=== PATIENT | female | born 1980 | race Caucasian/White ===

== ENCOUNTER 2020-03-24 17:15 | Outpatient (CLI) | payer OTHER, SELFPAY ==
[2020-03-25 18:47] LABS: SARS-CoV-2 RNA PCR Negative
== END 2020-03-24 17:16 | disposition home or self-care (01) ==
LOC: CHSLAB 17:20
DX: Z20.822 Contact with and (suspected) exposure to COVID-19 (principal)
CPT/HCPCS: C9803; U0003; U0005

== ENCOUNTER 2020-07-08 12:12 | Outpatient (CLI) | payer OTHER, SELFPAY ==
--- NOTE | ~2020-07-08 | XR_ITS ---
EXAMINATION: XR chest 2V 07/08/2020 12:37 INDICATION: Cough and shortness of breath. History of bronchitis. PROCEDURE: 2 view chest COMPARISON: No prior studies for comparison. FINDINGS: The lungs are clear. The cardiomediastinal silhouette is within normal limits. There are no pleural effusions. There is no pneumothorax suspected. IMPRESSION: 1: NO ACUTE CARDIOPULMONARY DISEASE. Reviewed, dictated and finalized at location B.
== END 2020-07-08 12:13 | disposition home or self-care (01) ==
LOC: CHSLAB 12:17
PROVIDERS: PCP Family Medicine
DX: R05 Cough (principal)
CPT/HCPCS: 71046

== ENCOUNTER 2020-07-09 13:47 | Outpatient (CLI) | payer OTHER, SELFPAY | END 2020-07-09 13:48 | disposition home or self-care (01) | LOC: CHSLAB 13:54 | PROVIDERS: PCP Family Medicine | DX: R05 Cough (principal) | CPT/HCPCS: 87070; 87205 ==

== ENCOUNTER 2021-03-06 12:21 | Outpatient (CLI) | payer OTHER, SELFPAY ==
--- NOTE | ~2021-03-06 | XR_ITS ---
EXAMINATION: XR chest 2V DATE: 03/06/2021 12:35 INDICATION: Cough and wheezing TECHNIQUE: PA and lateral views of the chest were obtained. COMPARISON: Chest radiograph dated 07/08/2020 FINDINGS: The lungs remain clear with no focal airspace opacities, pulmonary edema, pleural effusion or pneumot horax. The cardiomediastinal silhouette is normal. Unchanged mild thoracic spondylosis. IMPRESSION: 1. No acute cardiopulmonary disease. Reviewed, dictated and finalized at location H. H MAKER
== END 2021-03-06 12:22 | disposition home or self-care (01) ==
LOC: CHSIMG 12:22
PROVIDERS: PCP Family Medicine; Visit Provider Nurse Practitioner Family
DX: R05.9 Cough, unspecified (principal); R06.2 Wheezing
CPT/HCPCS: 71046

== ENCOUNTER 2021-04-18 12:06 | Outpatient (CLI) | payer OTHER, SELFPAY ==
[2021-04-18 12:24] LABS: Basophils Absolute Auto 0.04 K/mm3 (0.00-0.10); Basophils Percent Auto 0.8 % (0.0-1.0); Eosinophils Absolute Auto 0.09 K/mm3 (0.02-0.50); Eosinophils Percent Auto 1.8 % (1.0-6.0); Hematocrit 44.3 % (35.0-49.0); Hemoglobin 14.3 g/dL (12.0-15.0); Immature Granulocyte Absolute 0.01 K/mm3 (0.00-0.00); Immature Granulocyte Percent A 0.2 % (0.0-0.0); Lymphocytes Absolute Auto 1.12 K/mm3 (1.10-4.50); Lymphocytes Percent Auto 22.9 % (18.0-42.0); Mean Corpuscular HGB Conc 32.3 g/dL (32.0-36.0); Mean Corpuscular Hemoglobin 32.8 pg (27.0-31.0); Mean Corpuscular Volume 101.6 fL (78.0-102.0); Monocytes Absolute Auto 0.45 K/mm3 (0.10-0.90); Monocytes Percent Auto 9.2 % (2.0-11.0); Neutrophils Absolute Auto 3.2 K/mm3 (1.7-7.2); Neutrophils Percent Auto 65.1 % (50.0-70.0); Platelet Count Result 155 K/mm3 (150-420); Red Blood Count 4.36 M/mm3 (4.20-5.40); White Blood Count 4.9 K/mm3 (4.8-10.8)
[2021-04-18 12:26] LABS: Add Urine Microscopic? YES; Appearance Urine Clear (Clear); Bilirubin Urine Negative (Negative); Blood Urine Negative (Negative); Color Urine Brown (Yellow); Glucose Urine UA Negative (Negative); Ketones Urine Negative (Negative); Leukocyte Esterase Ur Negative (Negative); Nitrate Urine Negative (Negative); Protein Urine Negative (Negative); Specific Grav Ur 1.025 (1.010-1.020); Urobilinogen Urine 0.2 mg/dL (0.2-1.0)
[2021-04-18 12:31] LABS: Bacteria Urine 1+ /hpf; Mucus Urine Moderate /lpf; RBC Urine None seen /hpf (0-2); Squamous Epithelial Cell Urine Moderate /hpf (Few); WBC Urine None seen /hpf (0-3)
[2021-04-18 13:00] LABS: SARS-CoV-2 RNA PCR Negative (Negative)
[2021-04-18 13:01] LABS: Alanine Aminotransferase 25 U/L (14-59); Alkaline Phosphatase 82 U/L (46-116); Anion Gap 9 mmol/L (8-16); Aspartate Amino Transferase 14 U/L (15-37); Bilirubin,Total 0.7 mg/dL (0.00-1.00); Blood Urea Nitrogen 7 mg/dL (7-18); CRP < 0.5 mg/dL (0.0-0.9); Calcium 8.6 mg/dL (8.5-10.1); Carbon Dioxide 31 mmol/L (21-32); Chloride 101 mmol/L (98-108); Estimated Glomerular Filt Rate > 60; Glucose 99 mg/dL (70-99); Magnesium 2.1 mg/dL (1.8-2.4); Osmolality Calculated 290 mOsm/kg (285-295); Phosphorus 2.9 mg/dL (2.6-4.7); Sodium 141 mmol/L (136-145); Thyroid Stimulating Hormone 1.92 uIU/mL (0.36-3.74); Total Protein 6.8 g/dL (6.4-8.2)
== END 2021-04-18 12:07 | disposition home or self-care (01) ==
LOC: CHSLAB 12:08
PROVIDERS: PCP Internal Medicine; Visit Provider Internal Medicine
DX: R51.9 Headache, unspecified (principal); M54.9 Dorsalgia, unspecified; R05.9 Cough, unspecified; E87.6 Hypokalemia; Z20.822 Contact with and (suspected) exposure to COVID-19
CPT/HCPCS: 36415; 80053; 81001; 83735; 84100; 84443; 85025; 86140; C9803; U0003; U0005

== ENCOUNTER 2021-10-11 11:22 | Outpatient (CLI) | payer OTHER, SELFPAY ==
[2021-10-11 11:53] LABS: SARS-CoV-2 Ag Positive (Negative)
[2021-10-11 12:09] LABS: Influenza A QL RT-PCR Negative (Negative); Influenza B QL RT-PCR Negative (Negative); SARS-CoV-2 RNA PCR Positive (Negative)
== END 2021-10-11 11:23 | disposition home or self-care (01) ==
LOC: CHSLAB 11:24
PROVIDERS: PCP Internal Medicine; Visit Provider Internal Medicine
DX: U07.1 COVID-19 (principal); R50.9 Fever, unspecified; R51.9 Headache, unspecified; R05.9 Cough, unspecified
CPT/HCPCS: 87426; 87502; C9803; U0003; U0005

== ENCOUNTER 2021-10-20 14:20 | Outpatient (CLI) | payer OTHER, SELFPAY ==
--- NOTE | ~2021-10-20 | XR_ITS ---
XR chest 2V DATE: 10/20/2021 14:58 INDICATION: Cough and wheezing for 2 weeks post Covid TECHNIQUE: PA and lateral views COMPARISON: 03/06/2021 2 view chest FINDINGS: Normal heart size. No hilar or mediastinal enlargement. No pulmonary infiltrate or consolid ation, pleural effusion or pulmonary vascular congestion or pneumothorax. Included skeletal structures are unremarkable. IMPRESSION: No active cardiopulmonary disease Reviewed, dictated and finalized at location B.
== END 2021-10-20 14:21 | disposition home or self-care (01) ==
LOC: CHSIMG 14:22
PROVIDERS: PCP Internal Medicine; Visit Provider Internal Medicine
DX: R05.9 Cough, unspecified (principal); U09.9 Post COVID-19 condition, unspecified; R06.2 Wheezing
CPT/HCPCS: 71046

== ENCOUNTER 2022-04-02 16:04 | Outpatient (CLI) | payer OTHER, SELFPAY ==
--- NOTE | ~2022-04-02 | XR_ITS ---
EXAMINATION: XR chest 2V DATE: 04/02/2022 16:25 INDICATION: Increasing shortness of breath and posterior right-sided chest pain TECHNIQUE: PA and lateral views of the chest were obtained. COMPARISON: Chest radiograph dated 10/20/2021 FINDINGS: The lungs remain clear with no focal airspace opacities, pulmonary edema, pleural effusion or pneumot horax. The cardiomediastinal silhouette is normal. Chronic mild anterior wedging of a couple mid thor acic vertebral bodies. IMPRESSION: 1. No acute cardiopulmonary disease. Reviewed, dictated and finalized at location B. [facility]
--- NOTE | 2022-04-02 16:40 | ECG_ITS ---
Measurements Intervals [place] Rate: 81 P: 62 WA: 142 QRS: 56 QRSD: 89 T: 41 QT: 382 QTc: 445 Interpretive Statements SINUS RHYTHM CONSIDER INFERIOR INFARCT, AGE INDETERMINATE ABNORMAL ECG NO PREVIOUS ECG AVAILABLE FOR COMPARISON Electronically Signed On 04-02-2022 17:08:25 PRE K TEACHER by Lino Salter D.O.
== END 2022-04-02 16:05 | disposition home or self-care (01) ==
LOC: CHSIMG 16:11
PROVIDERS: PCP Internal Medicine; Visit Provider Internal Medicine Cardiovascular Disease
DX: R06.09 Other forms of dyspnea (principal); R94.31 Abnormal electrocardiogram [ECG] [EKG]
CPT/HCPCS: 71046; 93005

== ENCOUNTER 2022-05-03 16:16 | Emergency (ER) | payer OTHER, SELFPAY ==
[2022-05-03 16:42] VITALS: BP 142/79; PULSE 96; RESP 16; TEMP 36.7; O2SAT 97
--- NOTE | 2022-05-03 17:09 | ED.WOUNDLAC ---
HPI - Wound/Laceration General Chief Complaint: Wound/Laceration Stated Complaint: corner of drake on car hit head Time Seen by Provider: 05/03/22 16:18 Source: patient Mode of arrival: ambulatory Limitations: no limitations History of Present Illness HPI narrative: this is a 41-year-old female that has a laceration to her scalp after she inadvertently hit the side of her head on the trunk of a car causing pain and a non gaping laceration to the right side of her anterior scalp. Otherwise no fainting no no blurry vision. Onset (ago): hour(s) Location: scalp Place: outdoors Patient tetanus UTD: No Context: accidental Related Data Home Medications Medication Instructions Recorded Confirmed albuterol sulfate 90 mcg/actuation 2 puff inhalation PRN 02/18/19 04/02/22 aerosol inhaler (ProAir HFA) famotidine 40 mg tablet 40 mg PO BID 04/02/22 04/02/22 fluticasone propionate 230 2 puff inhalation BID 04/02/22 04/02/22 mcg-salmeterol 21 mcg/actuation HFA inhaler (Advair HFA) ipratropium 0.5 mg-albuterol 3 mg 3 ml inhalation QID PRN 04/02/22 (2.5 mg base)/3 mL nebulization soln montelukast 10 mg tablet 10 mg PO DAILY 04/02/22 04/02/22 sumatriptan succinate 50 mg tablet 50 mg PO ONCE 04/02/22 tiotropium bromide 2.5 2 puff inhalation DAILY 04/02/22 04/02/22 mcg/actuation mist for inhalation (Spiriva Respimat) verapamil 180 mg 24 hr 180 mg PO DAILY 04/02/22 04/02/22 capsule,extended release Allergies Allergy/AdvReac Type Severity Reaction Status Date / Time No Known Allergies Allergy Verified 04/06/22 15:15 Review of Systems Review of Systems: All systems reviewed & are unremarkable except as noted in HPI and below PMFSH Past Medical History Medical History Hypertension Social History Social History Years smoked: 31 Smoking status: Current every day smoker Tobacco type: cigarettes Second hand tobacco smoke exposure: No Alcohol intake: current Substance use: former Lack of Transportation: No Lack of Food: Never True Current Housing: I Have Housing Concerned About Future Housing: No Difficulty Paying Gas/Electric Bills: No Difficulty Paying for Meds: No Currently Unemployed: No Education: High School Diploma/GED Difficulty w/ Childcare or Family Care: No Exam Const: General: healthy appearing Nutritional Appearance: well nourished Orientation/consciousness: patient oriented x3 Limitations: no limitations HENMT: Head: normal to inspection Face and sinus: normal facial exam Mouth: Yes Normal oral and palatal mucosa present Eyes: Conjunctivae: conjunctivae normal Pupils: Equal, round and reactive pupils present EOM: EOMs intact bilaterally Neck: Neck: normal visual inspection, no lymphadenopathy and no meningeal signs Chest: Chest palpation & inspection: normal inspection of the chest Resp: Effort & Inspection: normal respiratory effort Cardio: Rate: regular rate Rhythm: regular rhythm GI: GI Palp: Yes Soft to palpation Urinary Catheter: Urinary Catheter: patent and draining Skin: General skin exam: normal color Wounds: wounds noted Other: Non gaping laceration to the scalp Neuro: General: patient oriented x3 Cranial nerves: Yes Nystagmus not present Speech: normal speech Extrem: General: normal to inspection Psych: Mental Status: mental status grossly normal Affect: normal affect Course Course Emergency Course: patient received 3 mervin tolerated procedure well will give patient an injection of Toradol and update her with her tetanus Vital Signs Vital signs: Vital Signs Temperature 36.7 C 05/03/22 16:42 Pulse Rate 96 05/03/22 16:42 Respiratory Rate 16 05/03/22 16:42 Blood Pressure 142/79 H 05/03/22 16:42 Pulse Oximetry 97 05/03/22 16:42 Oxygen Delivery Room Air 05/03/22 16:42 Temperat
[2022-05-03] MEDS: KETOROLAC (*BKC) 60 MG/2 ML VIAL IM (17:24)
[2022-05-03] MEDS: TETANUS,DIPHTHERIA,AC PERTUSSIS ADULT 0.5 ML (ADACEL) IM (17:39)
[2022-05-03 17:40] VITALS: BP 127/75; PULSE 93; RESP 17; TEMP 36.4; O2SAT 100
== END 2022-05-03 17:40 | disposition home or self-care (01) ==
LOC: CHSED 17:20
PROVIDERS: Emergency Provider Emergency Medicine; PCP Internal Medicine
DX: S01.01XA Laceration without foreign body of scalp, initial encounter (principal); W22.09XA Striking against other stationary object, initial encounter; I10 Essential (primary) hypertension; F17.210 Nicotine dependence, cigarettes, uncomplicated; Z79.51 Long term (current) use of inhaled steroids; Z23 Encounter for immunization
CPT/HCPCS: 12001; 90471; 90715; 96372; 99283; J1885

== ENCOUNTER 2022-05-28 13:44 | Outpatient (CLI) | payer OTHER, SELFPAY ==
--- NOTE | 2022-05-28 13:49 | ECHO_ITS ---
Patient Info Name: Paola Elizabeth Age: 41 years : 1980 Gender: Female Ht: 63 in Wt: 220 lbs BSA: 2.16 m2 HR: 85 bpm BP: 138 / 80 mmHg Heart Rhythm: Sinus Rhythm Technical Quality: Fair Exam Date: 05/28/2022 2:23 PM Exam Location: [facility] Patient Status: Outpatient Admit Date: 05/28/2022 Staff Ordering Physician: Lino Salter DO Forest Management Professor: Nancie Charles RDCS Attending Provider: Lino Salter DO Referring Physician: Gaetano WALKER; Exam Type: CA echo doppler color flow Study Info Indications R06.09 - Other forms of dyspnea Complete two-dimensional, color flow and Doppler transthoracic echocardiogram is performed. Summary 1. Complete two-dimensional, color flow and Doppler transthoracic echocardiogram is performed. 2. Left ventricular chamber dimension is mildly enlarged. 3. Left ventricular systolic function is normal, estimated at 55-60%. 4. The left ventricular diastolic function is abnormal. 5. E/e' 15 is elevated. 6. There is trace tricuspid valve regurgitation. 7. No pulmonary hypertension, estimated pulmonary arterial systolic pressure is 31 mmHg. Left Ventricle E/e' 15 is elevated. Left ventricular chamber dimension is mildly enlarged. Left ventricular systolic function is normal, estimated at 55-60%. The left ventricular diastolic function is abnormal. Right Ventricle Right ventricular systolic function is normal and with normal TAPSE 2.2 cm. Right ventricular chamber dimension is normal. Left Atria Left atrial chamber dimension is normal. Right Atria Right atrial chamber dimension is normal. Aortic Valve The aortic valve is trileaflet. There is no aortic valve stenosis. There is no aortic valve regurgitation. Pulmonic Valve There is no pulmonic regurgitation. Mitral Valve There is no mitral valve stenosis. There is no mitral valve regurgitation. Tricuspid Valve There is trace tricuspid valve regurgitation. No pulmonary hypertension, estimated pulmonary arterial systolic pressure is 31 mmHg. Pericardium/Pleural There is no pericardial effusion. Inferior Vena Cava Normal inferior vena cava with >50% collapse upon inspiration consistent with normal right atrial pressure, 5 mmHg. Aorta The aortic root size at the sinus of Valsalva is normal. Left Ventricular Outflow Tract Name Value Normal LVOT 2D LVOT Diameter 2.0 cm LVOT Doppler LVOT Peak Velocity 102 cm/s LVOT Peak Gradient 4 mmHg LVOT Mean Gradient 2 mmHg LVOT VTI 19 cm LVOT VTI/AV VTI Ratio 0.5 LVOT Stroke Volume 62 ml Pulmonic Valve Name Value Normal RVOT Doppler RVOT Peak Gradient 2 mmHg PV Doppler
== END 2022-05-28 13:45 | disposition home or self-care (01) ==
LOC: CHSIMG 13:45
PROVIDERS: PCP Internal Medicine; Visit Provider Internal Medicine Cardiovascular Disease
DX: R06.09 Other forms of dyspnea (principal); R93.1 Abnormal findings on diagnostic imaging of heart and coronary circulation
CPT/HCPCS: 93306

== ENCOUNTER 2022-06-29 12:18 | Outpatient (CLI) | payer OTHER, SELFPAY ==
[2022-06-29 13:09] LABS: SARS-CoV-2 RNA PCR Positive (Negative)
== END 2022-06-29 12:19 | disposition home or self-care (01) ==
LOC: CHSLAB 12:20
PROVIDERS: PCP Internal Medicine; Visit Provider Internal Medicine
DX: U07.1 COVID-19 (principal); R05.9 Cough, unspecified; R09.81 Nasal congestion
CPT/HCPCS: U0003; U0005

== ENCOUNTER 2022-07-27 12:25 | Outpatient (CLI) | payer OTHER, SELFPAY ==
--- NOTE | ~2022-07-27 | MM_ITS ---
EXAMINATION: MM screening shane BI w nadja HISTORY: Screening mammogram TECHNIQUE: Craniocaudal and mediolateral oblique 3-D tomosynthesis images were obtained and synthetic 2-D images were generated. CAD analysis was submitted and interpreted. COMPARISON: None, baseline BREAST PARENCHYMAL COMPOSITION: There are scattered areas of fibroglandular density. FINDINGS: No suspicious mass, calcification, or architectural distortion are identified in either yasir ast to suggest malignancy. IMPRESSION: 1. No mammographic evidence of malignancy. 2. Recommend routine screening mammography in one year. BI-RADS Category 1: Negative Reviewed, dictated and finalized at location A.
== END 2022-07-27 12:26 | disposition home or self-care (01) ==
LOC: CHSIMG 12:26
PROVIDERS: PCP Internal Medicine; Visit Provider Internal Medicine
DX: Z12.31 Encounter for screening mammogram for malignant neoplasm of breast (principal)
CPT/HCPCS: 77063; 77067

== ENCOUNTER 2022-08-21 13:10 | Outpatient (CLI) | payer OTHER, SELFPAY ==
--- NOTE | ~2022-08-21 | US_ITS ---
EXAMINATION: US pelvic complete w TV DATE: 08/21/2022 14:00 INDICATION: Pelvic pain during intercourse Comparison:. No prior studies for comparison. TECHNIQUE: Multiple transabdominal and endovaginal sonographic images of the pelvis performed. FINDINGS: The uterus measures 9.5 x 4 x 3 cm. The endometrial complex measures 5 mm. There is trace f luid in the endometrium. There is a large mass at the fundus measuring 3.9 x 3.3 x 3.7 cm, uterine fi broid. There are nabothian cysts. The ovaries are not visualized. There is no free fluid in the pelvis. There are no abnormal masses seen on either side. IMPRESSION: 1. Uterine fibroid at the fundus measuring 3.9 cm. Reviewed, dictated and finalized at location L.
== END 2022-08-21 13:11 | disposition home or self-care (01) ==
LOC: CHSIMG 13:12
PROVIDERS: PCP Internal Medicine; Visit Provider Nurse Practitioner Family
DX: R10.2 Pelvic and perineal pain (principal); D25.9 Leiomyoma of uterus, unspecified; N83.202 Unspecified ovarian cyst, left side; N83.201 Unspecified ovarian cyst, right side
CPT/HCPCS: 76830; 76856

== ENCOUNTER 2022-10-01 10:07 | Outpatient (CLI) | payer OTHER, SELFPAY ==
[2022-10-01 11:01] LABS: Alanine Aminotransferase 35 U/L (14-59); Albumin Level 3.6 g/dL (3.4-5.0); Alkaline Phosphatase 110 U/L (46-116); Anion Gap 9 mmol/L (8-16); Aspartate Amino Transferase 15 U/L (15-37); Bilirubin,Total 0.5 mg/dL (0.00-1.00); Blood Urea Nitrogen 7 mg/dL (7-18); Calcium 8.6 mg/dL (8.5-10.1); Carbon Dioxide 27 mmol/L (21-32); Chloride 106 mmol/L (98-108); Cholesterol 164 mg/dL (0-200); Estimated Glomerular Filt Rate > 60; Glucose 98 mg/dL (70-99); HDL Direct 35 mg/dL (40-60); LDL Cholesterol Calculated 99 mg/dL (<130); Osmolality Calculated 292 mOsm/kg (285-295); Potassium 4.1 mmol/L (3.5-5.1); Sodium 142 mmol/L (136-145); Total Protein 6.1 g/dL (6.4-8.2); Triglycerides 150 mg/dL (0-150)
== END 2022-10-01 10:08 | disposition home or self-care (01) ==
LOC: CHSLAB 10:09
PROVIDERS: PCP Internal Medicine; Visit Provider Internal Medicine Cardiovascular Disease
DX: I10 Essential (primary) hypertension (principal)
CPT/HCPCS: 36415; 80053; 80061

== ENCOUNTER 2022-10-16 00:56 | Day surgery (SDC) | payer OTHER, SELFPAY ==
[2022-10-05 12:11] VITALS: BMI 38.2
--- NOTE | 2022-10-05 12:20 | PC.NURSE ---
Report to the Outpatient Waiting Room, entrance under the green pavilion located off [facility], at time 6:00 on date 10/16/22. Planned Procedure Time: 7:30. Time changes happen often and if your time is changed the preop area will call you the afternoon before. - You and your visitor will be asked to self-screen and do not enter if you have any COVID symptoms. - A mask is optional within the hospital at this time. Patients may have clear liquids (water, carbonated beverages, clear teas, apple juice) until 3 hours prior to surgery (4:30) with a maximum of 20 ounces. - No food from midnight until time of surgery Take the following medications with a SIP of water the morning of surgery: INHALERS, BUPROPION, VERAPAMIL DO NOT STOP ANY OF YOUR OTHER PRESCRIPTION MEDICATIONS PRIOR TO SURGERY ?EXCEPT THE FOLLOWING Medications to discontinue per physician: N/A Date to take last dose: N/A Please no make-up, nail greenlandic, hairspray, perfume, deodorant, or body powder the day of surgery. No jewelry (including any body piercings) or valuables the day of surgery, leave them at home. Please take a shower or bath the night before, or the morning of, surgery with an antibacterial soap. Wear comfortable, loose fitting clothing. - Jewelry must be removed prior to entering the operating room. Rings and piercings that are not removed may be cut off. - The hospital will not accept responsibility for valuables. - Please leave all valuables, including medications, at home the day of surgery. If you are going home after surgery, a licensed concrete mixing truck driver must drive you home. - NO public transportation without another adult if you receive anesthesia. - We recommend that an adult stay with you for 24 hours following discharge. - We also recommend that you do not drive, make important decision, drink alcoholic beverages, or take any drugs that were not prescribed by your health care provider for at least 24 hours after your discharge time. Follow any additional instructions given to you from your surgeon. If you or anyone in your household have experienced Covid symptoms in the past week, please notify your surgeon or the nurse liaison at the phone number below for possible testing. Telephone instructions given to PT - DILIP MALDONADO and asked if any additional questions and then verbalized understanding. Patient advised to call surgeon office or pre surgery nurse liaison [phone] if any additional questions.
[2022-10-16] VITALS (8 sets, daily range): BP systolic 123–149; BP diastolic 65–83; PULSE 85–98; RESP 11–19; TEMP 36.6–37; O2SAT 94–100
[2022-10-16] MEDS: LACTATED RINGERS 1,000 ML 30 ML IV CONT ×2 (06:45→09:31)
[2022-10-16] MEDS: KETOROLAC 15 MG/ML VIAL (*BKC) IV PUSH (06:46)
[2022-10-16] MEDS: ACETAMINOPHEN 500 MG TABLET 1000 MG PO (06:46)
--- NOTE | 2022-10-16 07:01 | WPDANESEPPF ---
Anes - Initial Pre Proc Eval Procedure: Operation Date: 10/16/22 07:30 Proposed Procedures p Total Laparoscopic Hysterectomy with Bilateral Salpingectomy - Grace Santacruz MD Date/Time: 10/16/22 07:01 Surgeon: Grace Santacruz MD Pre Op Diagnosis: uterine leiomyoma Patient Data Age: 42 Gender: F Height: 1.6 m Weight: 98.3 kg Allergies Allergy/AdvReac Type Severity Reaction Status Date / Time No Known Allergies Allergy Verified 10/16/22 06:20 Home Medications Medication Instructions Recorded Confirmed Type albuterol sulfate 90 mcg/actuation 2 puff inhalation PRN PRN 02/18/19 10/16/22 History aerosol inhaler (ProAir HFA) Bronchospasm famotidine 40 mg tablet 40 mg PO BID 04/02/22 10/16/22 History fluticasone propionate 230 2 puff inhalation BID 04/02/22 10/16/22 History mcg-salmeterol 21 mcg/actuation HFA inhaler (Advair HFA) ipratropium 0.5 mg-albuterol 3 mg 3 ml inhalation QID PRN 04/02/22 10/16/22 History (2.5 mg base)/3 mL nebulization Bronchospasm soln montelukast 10 mg tablet 10 mg PO DAILY 04/02/22 10/16/22 History sumatriptan succinate 50 mg tablet 50 mg PO ONCE 04/02/22 10/16/22 History tiotropium bromide 2.5 2 puff inhalation DAILY 04/02/22 10/16/22 History mcg/actuation mist for inhalation (Spiriva Respimat) verapamil 180 mg 24 hr 180 mg PO DAILY 04/02/22 10/16/22 History capsule,extended release bupropion HCl 150 mg 24 hr tablet, 150 mg PO QAM 09/27/22 10/16/22 History extended release meclizine 25 mg tablet 25 mg PO BID PRN Vertigo 09/27/22 10/16/22 History buspirone 5 mg tablet 5 mg PO BID 10/16/22 10/16/22 History Patient hx anesthesia problems: none Family hx anesthesia problems: none Results Review: All pre-operative results and documents have been reviewed as part of the pre-operative evaluation. [facility] Past Medical History Medical History (Updated 10/16/22 @ 07:03 by Fred Medina DO) Asthma CHF (congestive heart failure) COPD (chronic obstructive pulmonary disease) Fibroid History of heart attack Hypertension Seizure age 10 after cyst removed from side of head Surgical History Surgical History (Updated 10/16/22 @ 07:03 by Fred Medina DO) History of tubal ligation Social History Social History Smoking packs per day: 1 Smoking cigarettes per day: 20.0 Years smoked: 32 Smoking pack-years: 32.00 Smoking status: Current every day smoker Tobacco type: cigarettes Second hand tobacco smoke exposure: No Alcohol intake: current Alcohol use details: 2/YEAR Substance use: never Substance use type: does not use Lack of Transportation: No Lack of Food: Never True Current Housing: I Have Housing Concerned About Future Housing: No Difficulty Paying Gas/Electric Bills: No Difficulty Paying for Meds: No Currently Unemployed: No Education: High School Diploma/GED Difficulty w/ Childcare or Family Care: No Living arrangements: with family Spiritual care concerns: No Anes - Eval Final PreProcedure Day of Procedure 10/16/22 07:01 Patient weight: obese Heart: regular rate and rhythm Lungs: clear to auscultation Airway: Mallampati scale class II Neurological: alert and oriented Last oral intake: >/= 8 hours ASA classification: III Emergent: no Anesthetic plan: proceed Anesthesia type and monitoring: general ETT and standard monitoring Results Review: All pre-operative results and documents have been reviewed as part of the pre-operative evaluation. Informed Consent: The patient's anesthetic plan and its attendant risks and benefits were discussed with the patient/family/POA. Questions were solicited and answers provided to the satisfaction of the patient/family/POA.
--- NOTE | 2022-10-16 07:18 | WPDHPUPDATE1 ---
History and Physical Update Update Date/Time: 10/16/22 07:18 History and Physical has been reviewed, including an updated exam of the patient. There are NO changes in the patient's condition. Risks, benefits, and alternatives have been discussed and questions answered. Patient agrees to proceed with procedure.
[2022-10-16] MEDS: ceFAZolin 2 GM/D5W 50 ML 2 GM/50 ML BAG IVPB (07:30)
[2022-10-16] MEDS: ceFAZolin SODIUM 1 GM VIAL (08:00)
[2022-10-16] MEDS: fentaNYL CITRATE INJ (*CRX) 100 MCG/2 ML VIAL 25 MCG IV PUSH ×2 (09:52→09:55)
--- NOTE | 2022-10-16 09:55 | W.PM.PROC2 ---
Procedure Note - Detailed Date of Procedure 10/16/22 Pre-op Diagnosis uterine leiomyoma Post-op Diagnosis Same Procedure Performed Total laparoscopic hysterectomy. Surgeon Grace Santacruz MD Anesthesia General Indications menorrhagia, fibroid Findings Enlarged fibroid uterus, diffuse pelvic scarring, thickened adnexa, mervin over the fallopian tubes Description of Procedure This patient was taken to the operating room. She was prepped and draped in the dorsal lithotomy position after induction of general anesthesia. The uterine manipulator and Rufus cup were placed. This was done with a speculum and tenaculum. The speculum was placed. The cervix was grasped with a tenaculum. The stay sutures were placed at 3 and 9:00 a.m.. The stay sutures of 0 Vicryl were brought through the appropriately sized Rufus cup. The tip of the [place] manipulator was placed in the intrauterine cavity. The cup was slid into place around the cervix and into the fornices. It was locked into place. The sutures were then wrapped around the handle and tied under tension. A 5 mm skin incision was made in the left upper quadrant the abdomen. A 5 mm trocar was inserted into the intrauterine cavity under direct visualization of the scope. Pneumoperitoneum was achieved. A left lower quadrant 11 mm incision was made with scalpel. An 11 mm trocar was inserted into the anterior abdominal cavity under direct visualization the scope. A 5 mm infraumbilical incision was made with a scalpel and a 5 mm trocar was inserted the intra-abdominal cavity under direct visualization of the scope. Bilateral ureteral lysis was performed. This was done from the pelvic brim down to the uterine artery. This was done with careful dissection using sharp and blunt dissection. The fallopian tubes were removed bilaterally. The mesosalpinx around the fallopian tubes were cauterized transected with LigaSure cautery. This was done in a bilateral fashion from the ovary to the uterine cornua. The fallopian tube was transected at the uterine cornu and amputated. The tube was taken out the left lower quadrant trocar site. In a stepwise fashion along the lateral aspects of the uterus the round ligament and broad ligaments were cauterized transected down to the level of the uterine arteries. A bladder flap was created in the bladder was moved distally to the end of the cervix and over the Rufus cup. The bilateral uterine arteries were cauterized and transected. Colpotomy was then performed. In a circumferential fashion the vagina was transected using unipolar cautery. The incision was made down on the Rufus cup. The uterus and cervix were taken out through the vagina. A pneumo occluder was placed in the vagina. The vaginal cuff was closed with a 0 V lock suture in a running fashion. The pelvis was irrigated with copious amounts antibiotic irrigation. The ureters were again examined and found to be intact and flowing freely under the uterine arteries into the bladder. The bladder was intact. It was examined directly. The vagina was irrigated with Betadine solution after removal of the Pneumo occluder. The patient was taken to recovery room. She was stable condition. Sponge lap and needle counts were correct x2. Estimated Blood Loss -100.0 Urine Output -350.0 Drains Yes Packing No Pathology Yes Complications No immediate complications Condition Stable Disposition Floor
--- NOTE | 2022-10-16 09:56 | SUR.PHASEI ---
0955: Simple mask removed.
--- NOTE | 2022-10-16 10:35 | ADMGEN ---
This patient, Paola Green, was admitted to OB 2nd Floor Room 283-00. Patient/family oriented to hospital policies and general routines including ID bracelet, bed and alarms, visiting hours, pain management, procedures, bathroom and other care routines, personal items, smoking policy, room service/diet, and visiting hours. Information on how to activate the Rapid Response Team has been discussed. Patient/Family are encouraged to report perceived risks to care and to ask questions if they do not understand what they are told or what they should do.
[2022-10-16] MEDS: DEXTROSE 5%/0.45% SOD CHL 1,000 ML 125 ML IV CONT (10:49)
[2022-10-16] MEDS: KETOROLAC 30 MG/ML VIAL (*BKC) IV PUSH (10:49)
== END 2022-10-16 17:55 | disposition home or self-care (01) ==
LOC: ANHSURGERY 06:02 → ANHOB2 13:45
PROVIDERS: PCP Internal Medicine; Visit Provider Obstetrics & Gynecology
PROC: 0UT9FZZ Resection of Uterus, Via Natural or Artificial Opening With Percutaneous Endoscopic Assistance (ICD-10-PCS; CPT 58571; principal; 2022-10-16 07:30)
DX: D25.1 Intramural leiomyoma of uterus (principal); J44.9 Chronic obstructive pulmonary disease, unspecified; I11.0 Hypertensive heart disease with heart failure; I50.9 Heart failure, unspecified; Z79.51 Long term (current) use of inhaled steroids; F17.210 Nicotine dependence, cigarettes, uncomplicated; E66.9 Obesity, unspecified; Z68.38 Body mass index [BMI] 38.0-38.9, adult
CPT/HCPCS: 58571; 36415; 86850; 86900; 86901; 88307; 99199; A9270; J0690; J1100; J1170; J1885; J2250; J2405; J2704; J3010; J7120

== ENCOUNTER 2022-11-16 10:10 | Outpatient (CLI) | payer OTHER, SELFPAY ==
[2022-11-16 10:41] LABS: Basophils Absolute Auto 0.04 K/mm3 (0.00-0.10); Basophils Percent Auto 0.6 % (0.0-1.0); Eosinophils Percent Auto 1.5 % (1.0-6.0); Hematocrit 39.8 % (35.0-49.0); Hemoglobin 12.8 g/dL (12.0-15.0); Immature Granulocyte Absolute 0.03 K/mm3 (0.00-0.00); Immature Granulocyte Percent A 0.4 % (0.0-0.0); Lymphocytes Absolute Auto 1.13 K/mm3 (1.10-4.50); Lymphocytes Percent Auto 16.7 % (18.0-42.0); Mean Corpuscular HGB Conc 32.2 g/dL (32.0-36.0); Mean Corpuscular Hemoglobin 32.8 pg (27.0-31.0); Mean Corpuscular Volume 102.1 fL (78.0-102.0); Mean Platelet Volume 8.9 fl (9.2-11.8); Monocytes Percent Auto 8.9 % (2.0-11.0); Neutrophils Absolute Auto 4.9 K/mm3 (1.7-7.2); Neutrophils Percent Auto 71.9 % (50.0-70.0); Platelet Count Result 172 K/mm3 (150-420); Red Cell Distribution Width 14.2 % (11.6-14.4); White Blood Count 6.8 K/mm3 (4.8-10.8)
[2022-11-16 11:03] LABS: Alanine Aminotransferase 24 U/L (14-59); Albumin Level 3.7 g/dL (3.4-5.0); Alkaline Phosphatase 123 U/L (46-116); Amylase 41 U/L (25-115); Anion Gap 9 mmol/L (8-16); Aspartate Amino Transferase 22 U/L (15-37); Bilirubin,Total 0.5 mg/dL (0.00-1.00); Blood Urea Nitrogen 14 mg/dL (7-18); Calcium 9.2 mg/dL (8.5-10.1); Carbon Dioxide 26 mmol/L (21-32); Chloride 106 mmol/L (98-108); Estimated Glomerular Filt Rate > 60; Glucose 98 mg/dL (70-99); Lipase 44 U/L (16-77); Osmolality Calculated 292 mOsm/kg (285-295); Potassium 3.7 mmol/L (3.5-5.1); Sodium 141 mmol/L (136-145); Total Protein 6.4 g/dL (6.4-8.2)
== END 2022-11-16 10:11 | disposition home or self-care (01) ==
LOC: CHSLAB 10:12
PROVIDERS: PCP Internal Medicine; Visit Provider Internal Medicine
DX: R10.9 Unspecified abdominal pain (principal)
CPT/HCPCS: 36415; 80053; 82150; 83690; 85025

== ENCOUNTER 2022-11-19 08:01 | Outpatient (CLI) | payer OTHER, SELFPAY ==
--- NOTE | ~2022-11-19 | US_ITS ---
Limited Abdominal Sonogram: Real-time sonographic imaging of the right upper quadrant was performed. Clinical History: Abdominal pain Findings: The liver appears somewhat heterogeneous, with no evidence of mass lesion or bile duct dil atation. Main portal vein demonstrates normal direction of flow. The gallbladder is well distended, a nd appears normal with no evidence of gallstone or wall thickening. The common bile duct measures 5 m m. The visualized pancreas, aorta, and IVC are unremarkable. Impression: Heterogeneous hepatic echotexture could reflect fatty infiltration or possibly other chronic liver di sease. Correlate clinically. Reviewed, dictated and finalized at location M. Impression: Heterogeneous hepatic echotexture could reflect fatty infiltration or possibly other chronic liver disease. Correlate clinically.
== END 2022-11-19 08:02 | disposition home or self-care (01) ==
LOC: CHSIMG 08:02
PROVIDERS: PCP Internal Medicine; Visit Provider Internal Medicine
DX: R10.9 Unspecified abdominal pain (principal); R93.2 Abnormal findings on diagnostic imaging of liver and biliary tract
CPT/HCPCS: 76705

== ENCOUNTER 2022-11-29 09:12 | Outpatient (CLI) | payer OTHER, SELFPAY ==
--- NOTE | ~2022-11-29 | XR_ITS ---
EXAMINATION: XR barium swallow DATE: 11/29/2022 10:08 INDICATION: Abdominal pain, reflux TECHNIQUE: The patient drank thick barium, gas-producing crystals, and thin barium. Fluoroscopy of th e hypopharynx and esophagus was performed. Fluoroscopy exposure time was 1.4 minutes. The DAP for thi s procedure was 19.343 Gycm2. COMPARISON: None. FINDINGS: There is no mass or stricture of the esophagus. Esophageal motility is normal. There is a s mall sliding hiatal hernia. There was a small amount of spontaneous gastroesophageal reflux. IMPRESSION: 1. Small sliding hiatal hernia. 2. Small amount of spontaneous gastroesophageal reflux. Reviewed, dictated and finalized at location L.
== END 2022-11-29 09:13 | disposition home or self-care (01) ==
LOC: CHSIMG 09:13
PROVIDERS: PCP Internal Medicine; Visit Provider Internal Medicine
DX: R10.9 Unspecified abdominal pain (principal); K44.9 Diaphragmatic hernia without obstruction or gangrene; K21.9 Gastro-esophageal reflux disease without esophagitis
CPT/HCPCS: 74220

== ENCOUNTER 2023-01-15 02:49 | Day surgery (SDC) | payer OTHER, SELFPAY ==
[2023-01-02 13:48] VITALS: BMI 38.2
--- NOTE | 2023-01-11 11:45 | SUR.PREOP ---
Patient called regarding upcoming procedure. Reviewed preop instructions, appointment times, and procedure prep.
[2023-01-15 09:14] VITALS: BP 124/65; PULSE 87; RESP 20; TEMP 36.4; O2SAT 99; BMI 38.0
[2023-01-15] MEDS: LACTATED RINGERS 1,000 ML 150 ML IV CONT (09:16)
--- NOTE | 2023-01-15 10:03 | WPDHPUPDATE1 ---
History and Physical Update Update Date/Time: 01/15/23 10:03 History and Physical has been reviewed, including an updated exam of the patient. There are NO changes in the patient's condition. Risks, benefits, and alternatives have been discussed and questions answered. Patient agrees to proceed with procedure.
--- NOTE | 2023-01-15 10:04 | WPDANESEPPF ---
Anes - Initial Pre Proc Eval Procedure: Operation Date: 01/15/23 10:30 Proposed Procedures p Esophagogastroduodenoscopy & Colonoscopy - Db Holman MD Date/Time: 01/15/23 10:04 Surgeon: Db Holman MD Pre Op Diagnosis: FA HX colon polyps, dysphagia unspecified Patient Data Age: 42 Gender: F Height: 1.6 m Weight: 97.3 kg Last Vital Signs Temp 97.5 F L 01/15/23 09:14 Pulse 87 01/15/23 09:14 Resp 20 01/15/23 09:14 BP 124/65 01/15/23 09:14 Pulse Ox 99 01/15/23 09:14 O2 Del Method Room Air 01/15/23 09:14 Allergies Allergy/AdvReac Type Severity Reaction Status Date / Time No Known Allergies Allergy Verified 01/15/23 09:10 Home Medications Medication Instructions Recorded Confirmed Type albuterol sulfate 90 mcg/actuation 2 puff inhalation PRN PRN 02/18/19 01/02/23 History aerosol inhaler (ProAir HFA) Bronchospasm famotidine 40 mg tablet 40 mg PO BID 04/02/22 01/15/23 History fluticasone propionate 230 2 puff inhalation BID 04/02/22 01/15/23 History mcg-salmeterol 21 mcg/actuation HFA inhaler (Advair HFA) ipratropium 0.5 mg-albuterol 3 mg 3 ml inhalation QID PRN 04/02/22 01/15/23 History (2.5 mg base)/3 mL nebulization Bronchospasm soln montelukast 10 mg tablet 10 mg PO DAILY 04/02/22 01/15/23 History sumatriptan succinate 50 mg tablet 50 mg PO ONCE PRN Migraine Headache 04/02/22 01/15/23 History tiotropium bromide 2.5 2 puff inhalation DAILY 04/02/22 01/15/23 History mcg/actuation mist for inhalation (Spiriva Respimat) bupropion HCl 150 mg 24 hr tablet, 150 mg PO QAM 09/27/22 01/15/23 History extended release meclizine 25 mg tablet 25 mg PO BID PRN Vertigo 09/27/22 01/15/23 History buspirone 5 mg tablet 10 mg PO BID 10/16/22 01/15/23 History topiramate 25 mg tablet 25 mg PO DAILY 12/27/22 01/15/23 History pantoprazole 40 mg tablet,delayed 40 mg PO DAILY 01/02/23 01/15/23 History release verapamil 240 mg tablet,extended 240 mg PO DAILY 01/02/23 01/15/23 History release Patient hx anesthesia problems: none Family hx anesthesia problems: none Results Review: All pre-operative results and documents have been reviewed as part of the pre-operative evaluation. [facility] Past Medical History Medical History (Updated 12/27/22 @ 13:31 by TERESA Cheng) Asthma BMI 37.0-37.9, adult CHF (congestive heart failure) COPD (chronic obstructive pulmonary disease) Fibroid History of heart attack Hypertension Odynophagia Seizure age 10 after cyst removed from side of head Surgical History Surgical History (Updated 12/27/22 @ 12:48 by DASH Ashraf) History of partial hysterectomy History of tubal ligation Family History Family History (Updated 12/27/22 @ 12:49 by DASH Ashraf) Father COPD (chronic obstructive pulmonary disease) Acute myocardial infarction Asthma Mother Lung cancer COPD (chronic obstructive pulmonary disease) Sibling No problems noted. Social History Social History (Updated 12/27/22 @ 12:50 by DASH Ashraf) Smoking packs per day: 0.5 Smoking cigarettes per day: 10.0 Years smoked: 32 Smoking pack-years: 16.00 Smoking status: Current every day smoker Tobacco type: cigarettes Second hand tobacco smoke exposure: No Additional smoking assessment comments: PT TRYING TO QUIT SMOKING, ON NICOTINE PATCHES Alcohol intake: never Alcohol use details: 2/YEAR Substance use: never Substance use type: does not use Lack of Transportation: No Lack of Food: Never True Current Housing: I Have Housing Concerned About Future Housing: No Difficulty Paying Gas/Electric Bills: No Difficulty Paying for Meds: No Currently Unemployed: No Education: High School Diploma/GED Difficulty w/ Childcare or Family Care: No Living arrangements: with family Occupation/Education: occupation Additional occupation/educa
--- NOTE | 2023-01-15 10:25 | SUR.OPER ---
EGD END 1019 COLONOSCOPY START 102
[2023-01-15 10:37] VITALS: BP 106/57; PULSE 85; RESP 14; O2SAT 98
[2023-01-15 10:47] VITALS: BP 108/57; PULSE 89; RESP 13; O2SAT 99
[2023-01-15 10:57] VITALS: BP 119/68; PULSE 86; RESP 21; O2SAT 100
== END 2023-01-15 11:07 | disposition home or self-care (01) ==
PROVIDERS: PCP Internal Medicine; Visit Provider Internal Medicine Gastroenterology
PROC: 0DJ08ZZ Inspection of Upper Intestinal Tract, Via Natural or Artificial Opening Endoscopic (ICD-10-PCS; CPT 43235; principal; 2023-01-15 10:30)
DX: B37.81 Candidal esophagitis (principal); K31.89 Other diseases of stomach and duodenum; K44.9 Diaphragmatic hernia without obstruction or gangrene; I11.0 Hypertensive heart disease with heart failure; I50.9 Heart failure, unspecified; J44.9 Chronic obstructive pulmonary disease, unspecified; G40.909 Epilepsy, unspecified, not intractable, without status epilepticus; I25.2 Old myocardial infarction; F17.210 Nicotine dependence, cigarettes, uncomplicated; E66.9 Obesity, unspecified; Z68.38 Body mass index [BMI] 38.0-38.9, adult; Z79.51 Long term (current) use of inhaled steroids
CPT/HCPCS: 45378; 43239; 88305; 88312; J2704; J7120

== ENCOUNTER 2023-02-05 08:42 | Outpatient (CLI) | payer OTHER, SELFPAY ==
--- NOTE | 2023-02-05 11:00 | NEURO_ITS ---
Impression: # Complains of numbness of hands, left more than right. # Evolving Carpal Tunnel Syndrome, left more than right. # No ulnar neuropathy. # Needle/EMG exam not requested. Nerve Conduction Studies Anti Sensory Summary Table Stim Site NR Peak (ms) P-T Amp (?V) Site1 Site2 Delta-P (ms) Dist (cm) Alcides (m/s) Left Median Anti Sensory (2-3nd Digit) Wrist 4.5 30.4 Wrist 2-3nd Digit 4.5 14.0 31 Wrist 4.5 18.7 Wrist 2-3nd Digit 4.5 14.0 31 Right Median Anti Sensory (2-3nd Digit) Wrist 3.7 44.6 Wrist 2-3nd Digit 3.7 14.0 38 Wrist 3.7 36.1 Wrist 2-3nd Digit 3.7 14.0 38 Left Radial Anti Sensory (Base 1st Digit) Wrist 1.8 39.3 Wrist Base 1st Digit 1.8 0.0 Right Radial Anti Sensory (Base 1st Digit) Wrist 2.5 14.7 Wrist Base 1st Digit 2.5 0.0 Left Ulnar Anti Sensory (5th Digit) Wrist 2.1 71.1 Wrist 5th Digit 2.1 14.0 67 Right Ulnar Anti Sensory (5th Digit) Wrist 2.1 68.8 Wrist 5th Digit 2.1 14.0 67 Motor Summary Table Stim Site NR Onset (ms) O-P Amp (mV) Site1 Site2 Delta-0 (ms) Dist (cm) Alcides (m/s) Left Median Motor (Abd Poll Brev) Wrist 4.1 3.3 Elbow Wrist 5.4 29.0 54 Elbow 9.5 1.4 Right Median Motor (Abd Poll Brev) Wrist 3.3 5.7 Elbow Wrist 5.1 28.0 55 Elbow 8.4 5.0 Left Ulnar Motor (Abd Dig Minimi) Wrist 2.4 6.6 A Elbow Wrist 5.3 30.0 57 A Elbow 7.7 5.2 Right Ulnar Motor (Abd Dig Minimi) Wrist 2.3 5.7 A Elbow Wrist 5.0 28.0 56 A Elbow 7.3 4.2 F Wave Studies NR F-Lat (ms) L-R F-Lat (ms) Left Median (Mrkrs) (Abd Poll Brev) 29.57 1.28 Right Median (Mrkrs) (Abd Poll Brev) 28.29 1.28 Left Ulnar (Mrkrs) (Abd Dig Min) 27.98 0.20 Right Ulnar (Mrkrs) (Abd Dig Min) 28.18 0.20 MTDD
== END 2023-02-05 08:43 | disposition home or self-care (01) ==
LOC: ANHNEURO 08:43
PROVIDERS: PCP Internal Medicine; Visit Provider Nurse Practitioner Family
DX: R20.0 Anesthesia of skin (principal); G56.03 Carpal tunnel syndrome, bilateral upper limbs
CPT/HCPCS: 95911

== ENCOUNTER 2023-02-13 10:00 | Outpatient (RCR) | payer OTHER, SELFPAY ==
--- NOTE | 2023-01-07 15:04 | OPREHPOC ---
Outpatient Therapy Plan of Care This is a Multidisciplinary Plan of Care that may contain components documented by all disciplines (PT, OT, and ST.) PT Problem 1 PT Problem #1 Knowledge Deficit PT Goal 1 Goal 1. Patient will perform independent HEP Target Visit 5 PT Problem 2 PT Problem #2 Pain PT Goal 1 Goal 1. No pain with pelvic exam to allow for medical management including pap smears 2. Pain with intercourse no higher than 3/10 Target Visit 5 PT Problem 3 PT Problem #3 Impaired Strength PT Goal 1 Goal 1. Pelvic floor strength to 4/5 2. No reports of urinary incontinence for 1 week Target Visit 5
--- NOTE | 2023-01-07 15:04 | PTOPEVAL1 ---
Assessment and note entered by Loulou Pena DPT Evaluation Information Assessment Status Evaluation Subjective Information Pt reports she has a history of pelvic pain and with intercourse for 20 years on and off. Recently was diagnosed with a tumor in her uterus and recently had a hysterectomy, October 2022. Unsure if tumor was cancerous. Highest pain recently 10/ 10 and lowest 0/10. Urinates less than 10 times a day and 1-2 times at night. Leaks urine after peeing on the toilet every day. Can hold urge to void unlimited amounts of time. Denies pain with urination. BM every few days, no fecal incontinence or pain. Has had pelvic pain with a pap smear and pelvic exam in the past. Pt has been 5 times, 4 deliveries: 1 vaginal and 3 C -sections. Reports annoyance with the pain. Previous bladder sling surgery. Also has a history of back pain. Returns to MD but unsure date. Patient goal: stop hurting Reported Pain Level Pain Score 0: Self Report Assessment PT Clinical Summary The patient is presenting to skilled therapy with a history of pelvic pain and reports urinary incontinence. She presents with increased pelvic floor muscle tone and decreased strength which are contributing to her pain and incontinence. She will benefit from therapy to address these impairments in order to reduce pain and incotinence for full function. Plan of Care Interventions Electrical Stimulation,Hot Pack/Cold Pack,Manual Therapy,Neuro Re-education,Patient/Caregiver Education,Therapeutic Activities,Therapeutic Exercise PT Services Indicated Yes Treatment Frequency and 1 time a week for 4 weeks Duration These treatments will address the objective and functional deficits as defined above. The patient will be advanced safely and appropriately in order for the patient to progress towards his/her prior level of function. Additional exercises will be introduced and as well as a comprehensive home exercise program upon discharge, if needed, ?to ensure carryover of functional gains achieved in the clinic. This treatment plan has been reviewed and agreement upon by the patient.
--- NOTE | 2023-02-06 09:41 | PCPTNOTE ---
Patient called to cancel appointment for 02/06/23 due to a personal conflict. She rescheduled to next week.
--- NOTE | 2023-02-13 10:19 | OPREHPOC ---
Outpatient Therapy Plan of Care This is a Multidisciplinary Plan of Care that may contain components documented by all disciplines (PT, OT, and ST.) PT Problem 1 PT Problem #1 Knowledge Deficit PT Goal 1 Goal 1. Patient will perform independent HEP Target Visit 5 Progress Met PT Problem 2 PT Problem #2 Pain PT Goal 1 Goal 1. No pain with pelvic exam to allow for medical management including pap smears 2. Pain with intercourse no higher than 3/10 Target Visit 5 Progress Partially Met Comment 1. partially met 2. met PT Problem 3 PT Problem #3 Impaired Strength PT Goal 1 Goal 1. Pelvic floor strength to 4/5 2. No reports of urinary incontinence for 1 week Target Visit 5 Progress Not Met
--- NOTE | 2023-02-13 10:19 | PTOPDC ---
Assessment and note entered by Loulou Pena DPT Evaluation Information Assessment Status Discharge Subjective Information No pain in the last week, highest pain with intercourse 3/10 and it was a few weeks ago. Reports she feels confident with discharge this visit Reported Pain Level Pain Score 0: Self Report Assessment PT Clinical Summary The patient has made excellent progress in therapy and reports no pelvic pain in the last week. She demonstrates improved core and hip strength and decreased pain with pelvic floor palpation, as well as normalized muscle tone. Due to her progress, plan for discharge at this time. She has been educated to continue her HEP and follow up with MD and/or PT as needed. Plan of Care PT Services Indicated No
== END 2023-02-13 11:45 | disposition home or self-care (01) ==
LOC: ANHGOSHPT 10:00
PROVIDERS: PCP Internal Medicine; Visit Provider Advanced Practice Midwife
DX: N39.3 Stress incontinence (female) (male) (principal)
CPT/HCPCS: 97110; 97112; 97140; 97162; 97530

== ENCOUNTER 2023-03-13 19:47 | Outpatient (CLI) | payer OTHER, SELFPAY ==
--- NOTE | 2023-03-25 09:39 | WPDSLEEPSTUD ---
Sleep Study Date of Study: 03/13/23 Ordering Provider: Dejuan Kyle APRN Interpreting Physician: Fariba Shane MD Sleep Study Type: Split Polysomnogram Height: 1.6 m Weight: 99.79 kg Body Mass Index: 38.9 Neck Circumference (inches): 17 [place]: 18 Reason for Sleep Study Hypersomnolence Sleep History Paola Green is a 42-year-old woman with obstructive sleep apnea who has used CPAP in the past. She is a luei-ml-htmn mom.Her psychiatrist has put her on trazodone which helps her fall asleep but not stay asleep. There is a family history of sleep issues, her mother had sleep apnea.She rarely awakens from sleep feeling short of breath. She rarely wakes at night with heartburn, belching or coughing although she does have a hiatal history and reflux. ?She constantly snores, frequently snores loudly enough that others complain. She occasionally has trouble sleeping when she has a cold. She rarely wakes up gasping for breath during the night. She rarely has breathing problems at night. She rarely sweats excessively at night. She never notices her heart pounding or beating irregularly during the night. She rarely falls asleep during the day. She never falls asleep involuntarily, never falls asleep while driving. She never experiences loss of muscle tone with strong emotion. She never feels paralyzed on waking or falling asleep. She never experiences vivid dreams upon waking or falling asleep. She never feels afraid of going to sleep. She rarely has nightmares. She occasionally recalls her dreams. She rarely has thoughts racing through her mind. She occasionally feels sad or depressed. She occasional feels anxiety. She never notices parts of her body jerk. She never kicks during the night. She never feels crawling or aching feelings in her legs. She never feels leg pain at night. She never has morning jaw pain, and never grinds her teeth at night. She occasionally feels bothered by pain during the day, is occasionally awakened by pain during the night. She rarely wakes up feeling stiff in the morning, rarely wakes feeling sore or achy in the morning. She rarely awakens with pain in her neck, spine, or joints. Normal bedtime is between 9:00 a.m. and 2:00 a.m., falling asleep sometimes more quickly than at other times. She wakes up anywhere between 1 time in 5 times during the night and stays awake for at least 20 minutes. She wakes the morning around 8:00 a.m.. Her weekend schedule is the same with variable bedtime but she always wakes around 8:00 a.m.., She reports getting about 5 hours of sleep most nights. She does not generally take naps in the afternoon or evening. If she takes naps this totally interrupts her sleep and she is not able to get to sleep and stay asleep at all. She is usually drowsyFor 3 hours or longer after waking. Habits:??Tobacco: 3/4 pack per day Caffeine: 6 cans per day. Alcohol: none Recreational substances: none COUNTS INCLUDE 234 BEDS AT THE [facility] Past Medical History Medical History (Updated 03/25/23 @ 10:12 by Fariba Shane MD) Asthma BMI 37.0-37.9, adult CHF (congestive heart failure) COPD (chronic obstructive pulmonary disease) Fibroid History of heart attack Hypertension Odynophagia ADAM (obstructive sleep apnea) Seizure age 10 after cyst removed from side of head Surgical History Surgical History History of partial hysterectomy History of tubal ligation Family History Family History Father COPD (chronic obstructive pulmonary disease) Acute myocardial infarction Asthma Mother Lung cancer COPD (chronic obstructive pulmonary disease) Sibling No problems noted. Social History Social History Smoking packs per day: 0.5 Smoking cigarettes per day: 10.0 Years smoked: 32 Smoking pack-years: 16.00
[2023-03-25 10:20] VITALS: BMI 38.9
== END 2023-03-14 06:42 | disposition home or self-care (01) ==
LOC: CHSCSM 19:49
PROVIDERS: PCP Internal Medicine; Visit Provider Nurse Practitioner Family
DX: G47.33 Obstructive sleep apnea (adult) (pediatric) (principal); Z68.39 Body mass index [BMI] 39.0-39.9, adult
CPT/HCPCS: 95811

== ENCOUNTER 2023-03-15 09:22 | Outpatient (CLI) | payer OTHER, SELFPAY ==
[2023-03-15 10:19] LABS: Alanine Aminotransferase 25 U/L (14-59); Albumin Level 3.5 g/dL (3.4-5.0); Alkaline Phosphatase 93 U/L (46-116); Anion Gap 6 mmol/L (8-16); Aspartate Amino Transferase 11 U/L (15-37); Bilirubin,Total 0.4 mg/dL (0.00-1.00); Blood Urea Nitrogen 10 mg/dL (7-18); Calcium 8.7 mg/dL (8.5-10.1); Carbon Dioxide 30 mmol/L (21-32); Chloride 105 mmol/L (98-108); Cholesterol 137 mg/dL (0-200); Estimated Glomerular Filt Rate > 60; Glucose 98 mg/dL (70-99); HDL Direct 35 mg/dL (40-60); LDL Cholesterol Calculated 83 mg/dL (<130); Osmolality Calculated 291 mOsm/kg (285-295); Potassium 3.8 mmol/L (3.5-5.1); Sodium 141 mmol/L (136-145); Thyroid Stimulating Hormone 1.53 uIU/mL (0.36-3.74); Total Protein 5.9 g/dL (6.4-8.2); Triglycerides 96 mg/dL (0-150)
== END 2023-03-15 09:23 | disposition home or self-care (01) ==
LOC: CHSLAB 09:24
PROVIDERS: PCP Internal Medicine; Visit Provider Internal Medicine
DX: A49.02 Methicillin resistant Staphylococcus aureus infection, unspecified site (principal); E78.5 Hyperlipidemia, unspecified
CPT/HCPCS: 36415; 80053; 80061; 84443; 87081

== ENCOUNTER 2023-04-17 10:49 | Outpatient (CLI) | payer OTHER, SELFPAY ==
[2023-04-17 11:36] LABS: SARS-CoV-2 RNA PCR Negative (Negative)
[2023-04-17 11:37] LABS: Influenza A QL RT-PCR Negative (Negative); Influenza B QL RT-PCR Negative (Negative); RSV RNA, RT-PCR Negative (Negative)
== END 2023-04-17 10:50 | disposition home or self-care (01) ==
PROVIDERS: PCP Internal Medicine; Visit Provider Physician Assistant
DX: R05.9 Cough, unspecified (principal)
CPT/HCPCS: 87637

== ENCOUNTER 2023-04-29 10:29 | Outpatient (CLI) | payer OTHER, SELFPAY ==
--- NOTE | ~2023-04-29 | XR_ITS ---
Clinical Indication: Cough PA and lateral views of the chest: Comparison: 04/02/2022 Findings: The lungs are clear, without evidence of focal consolidation or pleural effusion. Cardiome diastinal silhouette is within normal limits. Bones and soft tissues are unremarkable. Impression: Normal chest. Reviewed, dictated and finalized at [facility]. [employer] Impression: Normal chest.
== END 2023-04-29 10:30 | disposition home or self-care (01) ==
LOC: CHSIMG 10:31
PROVIDERS: PCP Internal Medicine; Visit Provider Nurse Practitioner Family
DX: R05.9 Cough, unspecified (principal)
CPT/HCPCS: 71046

== ENCOUNTER 2023-05-16 11:09 | Outpatient (CLI) | payer OTHER, SELFPAY ==
[2023-05-16 11:24] LABS: Hematocrit 39.5 % (35.0-49.0); Hemoglobin 12.4 g/dL (12.0-15.0); Mean Corpuscular HGB Conc 31.4 g/dL (32.0-36.0); Mean Corpuscular Volume 98.8 fL (78.0-102.0); Mean Platelet Volume 8.1 fl (9.2-11.8); Platelet Count Result 142 K/mm3 (150-420); Red Cell Distribution Width 15.7 % (11.6-14.4); White Blood Count 6.1 K/mm3 (4.8-10.8)
== END 2023-05-16 11:10 | disposition home or self-care (01) ==
LOC: CHSLAB 11:11
PROVIDERS: PCP Internal Medicine; Visit Provider Internal Medicine
DX: Z01.818 Encounter for other preprocedural examination (principal); J45.909 Unspecified asthma, uncomplicated
CPT/HCPCS: 36415; 85025

== ENCOUNTER 2023-07-24 11:25 | Outpatient (CLI) | payer OTHER, SELFPAY | END 2023-07-24 11:26 | disposition home or self-care (01) | LOC: CHSIMG 11:26 | PROVIDERS: PCP Internal Medicine; Visit Provider Internal Medicine | DX: M79.671 Pain in right foot (principal); M79.672 Pain in left foot | CPT/HCPCS: 73630 ==

== ENCOUNTER 2023-08-12 12:40 | Outpatient (CLI) | payer OTHER, SELFPAY ==
--- NOTE | ~2023-08-12 | MM_ITS ---
EXAMINATION: MM screening shane BI w nadja HISTORY: Screening TECHNIQUE: Craniocaudal and mediolateral oblique 3-D tomosynthesis images were obtained and synthetic 2-D images were generated. CAD analysis was submitted and interpreted. COMPARISON: 07/27/2022 BREAST PARENCHYMAL COMPOSITION: There are scattered areas of fibroglandular density. FINDINGS: There is no evidence of suspicious mass, calcification, or architectural distortion to sugg est malignancy in either breast. There has been no suspicious interval change. IMPRESSION: 1. No mammographic evidence of malignancy. 2. Recommend routine screening mammography in one year. BI-RADS Category 1: Negative Reviewed, dictated and finalized at location B.
== END 2023-08-12 12:41 | disposition home or self-care (01) ==
PROVIDERS: PCP Internal Medicine; Visit Provider Internal Medicine
DX: Z12.31 Encounter for screening mammogram for malignant neoplasm of breast (principal)
CPT/HCPCS: 77063; 77067

== ENCOUNTER 2023-10-24 07:42 | Outpatient (CLI) | payer OTHER, SELFPAY ==
[2023-10-24 07:53] LABS: Basophils Absolute Auto 0.03 K/mm3 (0.00-0.10); Basophils Percent Auto 0.6 % (0.0-1.0); Eosinophils Absolute Auto 0.09 K/mm3 (0.02-0.50); Eosinophils Percent Auto 1.9 % (1.0-6.0); Hemoglobin 12.9 g/dL (12.0-15.0); Immature Granulocyte Absolute 0.02 K/mm3 (0.00-0.00); Immature Granulocyte Percent A 0.4 % (0.0-0.0); Lymphocytes Absolute Auto 1.34 K/mm3 (1.10-4.50); Lymphocytes Percent Auto 28.6 % (18.0-42.0); Mean Corpuscular HGB Conc 32.3 g/dL (32-36); Mean Corpuscular Hemoglobin 32.4 pg (27.0-31.0); Mean Corpuscular Volume 100.5 fL (78.0-102.0); Mean Platelet Volume 8.5 fl (9.2-11.8); Monocytes Absolute Auto 0.44 K/mm3 (0.10-0.90); Monocytes Percent Auto 9.4 % (2.0-11.0); Neutrophils Absolute Auto 2.76 K/mm3 (1.70-7.20); Neutrophils Percent Auto 59.1 % (50.0-70.0); Platelet Count Result 146 K/mm3 (150-420); Red Blood Count 3.98 M/mm3 (4.20-5.40); Red Cell Distribution Width 14.7 % (11.6-14.4); White Blood Count 4.7 K/mm3 (4.8-10.8)
[2023-10-24 07:59] LABS: Add Urine Microscopic? YES; Appearance Urine Clear (Clear); Bilirubin Urine Negative (Negative); Blood Urine Negative (Negative); Color Urine Yellow (Yellow); Glucose Urine UA Negative (Negative); Ketones Urine Negative (Negative); Leukocyte Esterase Ur Trace (Negative); Nitrate Urine Negative (Negative); Protein Urine Negative (Negative); Specific Grav Ur 1.025 (1.010-1.020); pH Urine 6.5 (5.0-8.0)
[2023-10-24 08:04] LABS: Bacteria Urine 1+ /hpf; RBC Urine None seen /hpf (0-2); Squamous Epithelial Cell Urine Moderate /hpf (Few); WBC Urine None seen /hpf (0-3)
[2023-10-24 09:02] LABS: Alanine Aminotransferase 32 U/L (14-59); Albumin Level 3.5 g/dL (3.4-5.0); Alkaline Phosphatase 103 U/L (46-116); Anion Gap 7 mmol/L (4-12); Aspartate Amino Transferase 21 U/L (15-37); Bilirubin,Total 0.5 mg/dL (0.00-1.00); Blood Urea Nitrogen 7 mg/dL (7-18); Calcium 8.2 mg/dL (8.5-10.1); Carbon Dioxide 28 mmol/L (21-32); Chloride 105 mmol/L (98-108); Cholesterol 165 mg/dL (0-200); Estimated Glomerular Filt Rate > 60; Free T4 Free Thyroxine 0.84 ng/dL (0.76-1.46); Glucose 99 mg/dL (70-99); HDL Direct 27 mg/dL (40-60); LDL Cholesterol Calculated 85 mg/dL (<130); Osmolality Calculated 288 mOsm/kg (285-295); Potassium 3.4 mmol/L (3.5-5.1); Sodium 140 mmol/L (136-145); Thyroid Stimulating Hormone 2.39 uIU/mL (0.36-3.74); Total Protein 6.1 g/dL (6.4-8.2); Triglycerides 266 mg/dL (0-150)
== END 2023-10-24 07:43 | disposition home or self-care (01) ==
LOC: CHSLAB 07:44
PROVIDERS: PCP Internal Medicine; Visit Provider Internal Medicine
DX: J44.9 Chronic obstructive pulmonary disease, unspecified (principal); K21.9 Gastro-esophageal reflux disease without esophagitis; G47.33 Obstructive sleep apnea (adult) (pediatric); K76.0 Fatty (change of) liver, not elsewhere classified; R13.10 Dysphagia, unspecified; F41.9 Anxiety disorder, unspecified
CPT/HCPCS: 36415; 80053; 80061; 81001; 84439; 84443; 85025

== ENCOUNTER 2023-10-25 12:03 | Outpatient (CLI) | payer OTHER, SELFPAY ==
[2023-10-25 12:59] LABS: Alanine Aminotransferase 32 U/L (14-59); Albumin Level 3.4 g/dL (3.4-5.0); Alkaline Phosphatase 107 U/L (46-116); Anion Gap 8 mmol/L (4-12); Aspartate Amino Transferase 23 U/L (15-37); Bilirubin,Total 0.5 mg/dL (0.00-1.00); Blood Urea Nitrogen 10 mg/dL (7-18); Calcium 8.4 mg/dL (8.5-10.1); Carbon Dioxide 27 mmol/L (21-32); Chloride 105 mmol/L (98-108); Estimated Glomerular Filt Rate > 60; Glucose 101 mg/dL (70-99); Osmolality Calculated 289 mOsm/kg (285-295); Phosphorus 1.7 mg/dL (2.6-4.7); Potassium 3.4 mmol/L (3.5-5.1); Sodium 140 mmol/L (136-145); Total Protein 6.1 g/dL (6.4-8.2)
[2023-10-26 15:19] LABS: Parathyroid Intact 31 pg/mL (16-77)
[2023-10-27 03:34] LABS: Vitamin D 25 Hydroxy 36 ng/mL (30-100)
== END 2023-10-25 12:04 | disposition home or self-care (01) ==
LOC: CHSLAB 12:05
PROVIDERS: PCP Internal Medicine; Visit Provider Internal Medicine
DX: E83.51 Hypocalcemia (principal)
CPT/HCPCS: 36415; 80053; 82306; 82330; 83735; 83970; 84100

== ENCOUNTER 2023-12-10 10:26 | Outpatient (CLI) | payer OTHER, SELFPAY ==
[2023-12-10 10:49] LABS: Basophils Absolute Auto 0.04 K/mm3 (0.00-0.10); Basophils Percent Auto 0.7 % (0.0-1.0); Eosinophils Absolute Auto 0.12 K/mm3 (0.02-0.50); Hematocrit 38.9 % (35.0-49.0); Hemoglobin 12.7 g/dL (12.0-15.0); Immature Granulocyte Absolute 0.03 K/mm3 (0.00-0.00); Immature Granulocyte Percent A 0.5 % (0.0-0.0); Lymphocytes Absolute Auto 1.73 K/mm3 (1.10-4.50); Lymphocytes Percent Auto 28.7 % (18.0-42.0); Mean Corpuscular HGB Conc 32.6 g/dL (32-36); Mean Platelet Volume 8.6 fl (9.2-11.8); Monocytes Absolute Auto 0.53 K/mm3 (0.10-0.90); Monocytes Percent Auto 8.8 % (2.0-11.0); Neutrophils Absolute Auto 3.58 K/mm3 (1.70-7.20); Neutrophils Percent Auto 59.3 % (50.0-70.0); Platelet Count Result 150 K/mm3 (150-420); Red Blood Count 3.85 M/mm3 (4.20-5.40); Red Cell Distribution Width 15.1 % (11.6-14.4)
[2023-12-10 11:04] LABS: INR 0.9; Partial Thromboplastin Time 26.4 Sec (23.9-30.70); Prothrombin Time 9.8 Seconds (9.50-12.1)
[2023-12-10 11:08] LABS: Alanine Aminotransferase 34 U/L (14-59); Albumin Level 3.4 g/dL (3.4-5.0); Alkaline Phosphatase 102 U/L (46-116); Ammonia 21 umol/L (11-32); Anion Gap 7 mmol/L (4-12); Aspartate Amino Transferase 20 U/L (15-37); Bilirubin,Total 0.4 mg/dL (0.00-1.00); Blood Urea Nitrogen 8 mg/dL (7-18); Calcium 8.8 mg/dL (8.5-10.1); Carbon Dioxide 28 mmol/L (21-32); Chloride 104 mmol/L (98-108); Estimated Glomerular Filt Rate > 60; Glucose 117 mg/dL (70-99); Osmolality Calculated 287 mOsm/kg (285-295); Phosphorus 2.9 mg/dL (2.6-4.7); Sodium 139 mmol/L (136-145); Total Protein 6.5 g/dL (6.4-8.2)
== END 2023-12-10 10:27 | disposition home or self-care (01) ==
PROVIDERS: PCP Internal Medicine; Visit Provider Internal Medicine
DX: D61.818 Other pancytopenia (principal); R53.83 Other fatigue; E87.8 Other disorders of electrolyte and fluid balance, not elsewhere classified
CPT/HCPCS: 36415; 80053; 82140; 83735; 84100; 85025; 85610; 85730

== ENCOUNTER 2023-12-12 07:53 | Outpatient (CLI) | payer OTHER, SELFPAY ==
--- NOTE | ~2023-12-12 | US_ITS ---
Right upper quadrant ultrasound of the abdomen Ordering provider: Juan Diego Caraballo MD History: . PANCYTOPENIA/CIRRHOSIS . Comparison: None. FINDINGS: LIVER: Normal size with fat infiltration.. No focal hepatic lesions or perihepatic fluid collections are identified. Portal vein flow is normal. GALLBLADDER: Unremarkable. No evidence for stones, sludge, gallbladder wall thickening or pericholecy stic fluid collections. A negative sonographic Miller's sign was noted. BILIARY DUCTS: No evidence for intra or extrahepatic biliary dilation. Common bile duct measures 3 mm in diameter which is within normal limits. PANCREAS: Not well visualized. UPPER ABDOMINAL AORTA: Normal in caliber. IVC: Patent. FREE FLUID: None. IMPRESSION: Fat infiltration of the liver otherwise, Unremarkable right upper quadrant ultrasound. Reviewed, dictated and finalized at location A. IMPRESSION: Fat infiltration of the liver otherwise, Unremarkable right upper quadrant ultr asound.
== END 2023-12-12 07:54 | disposition home or self-care (01) ==
LOC: CHSIMG 07:54
PROVIDERS: PCP Internal Medicine; Visit Provider Internal Medicine
DX: D61.818 Other pancytopenia (principal); R53.83 Other fatigue; E87.8 Other disorders of electrolyte and fluid balance, not elsewhere classified; K76.0 Fatty (change of) liver, not elsewhere classified
CPT/HCPCS: 76705

== ENCOUNTER 2024-01-01 09:58 | Outpatient (CLI) | payer OTHER, SELFPAY ==
[2024-01-01 11:26] LABS: Iron 48 ug/dL (50-170); Percent Iron Saturation 22 % (12-57); Vitamin B12 354 pg/mL (193-986)
== END 2024-01-01 09:59 | disposition home or self-care (01) ==
PROVIDERS: PCP Internal Medicine; Visit Provider Nurse Practitioner Family
DX: R53.83 Other fatigue (principal)
CPT/HCPCS: 36415; 82607; 83540; 83550

== ENCOUNTER 2024-04-04 09:49 | Outpatient (CLI) | payer OTHER, SELFPAY ==
[2024-04-04 10:04] LABS: Basophils Absolute Auto 0.04 K/mm3 (0.00-0.10); Basophils Percent Auto 0.7 % (0.0-1.0); Eosinophils Absolute Auto 0.12 K/mm3 (0.02-0.50); Hematocrit 40.2 % (35.0-49.0); Hemoglobin 12.8 g/dL (12.0-15.0); Immature Granulocyte Absolute 0.01 K/mm3 (0.00-0.00); Immature Granulocyte Percent A 0.2 % (0.0-0.0); Lymphocytes Absolute Auto 1.45 K/mm3 (1.10-4.50); Lymphocytes Percent Auto 24.6 % (18.0-42.0); Mean Corpuscular HGB Conc 31.8 g/dL (32-36); Mean Corpuscular Hemoglobin 32.6 pg (27.0-31.0); Mean Corpuscular Volume 102.3 fL (78.0-102.0); Mean Platelet Volume 8.7 fl (9.2-11.8); Monocytes Absolute Auto 0.49 K/mm3 (0.10-0.90); Monocytes Percent Auto 8.3 % (2.0-11.0); Neutrophils Absolute Auto 3.79 K/mm3 (1.70-7.20); Neutrophils Percent Auto 64.2 % (50.0-70.0); Platelet Count Result 149 K/mm3 (150-420); Red Blood Count 3.93 M/mm3 (4.20-5.40); Red Cell Distribution Width 14.6 % (11.6-14.4); White Blood Count 5.9 K/mm3 (4.8-10.8)
[2024-04-04 10:49] LABS: Alanine Aminotransferase 33 U/L (14-59); Albumin Level 3.5 g/dL (3.4-5.0); Alkaline Phosphatase 96 U/L (46-116); Anion Gap 7 mmol/L (4-12); Aspartate Amino Transferase 16 U/L (15-37); Bilirubin,Total 0.7 mg/dL (0.00-1.00); Blood Urea Nitrogen 6 mg/dL (7-18); Calcium 8.4 mg/dL (8.5-10.1); Carbon Dioxide 26 mmol/L (21-32); Chloride 107 mmol/L (98-108); Estimated Glomerular Filt Rate > 60; Free T4 Free Thyroxine 0.77 ng/dL (0.76-1.46); Glucose 98 mg/dL (70-99); Osmolality Calculated 287 mOsm/kg (285-295); Potassium 3.9 mmol/L (3.5-5.1); Sodium 140 mmol/L (136-145); Thyroid Stimulating Hormone 1.44 uIU/mL (0.36-3.74); Total Protein 5.9 g/dL (6.4-8.2)
[2024-04-05 09:22] LABS: Vitamin D 25 Hydroxy 37 ng/mL (30-100)
== END 2024-04-04 09:50 | disposition home or self-care (01) ==
PROVIDERS: PCP Internal Medicine; Visit Provider Nurse Practitioner Family
DX: R79.89 Other specified abnormal findings of blood chemistry (principal); E83.51 Hypocalcemia
CPT/HCPCS: 36415; 80053; 82306; 82652; 84439; 84443; 85025

== ENCOUNTER 2024-04-06 11:53 | Outpatient (CLI) | payer OTHER, SELFPAY ==
[2024-04-06 12:07] LABS: Basophils Absolute Auto 0.03 K/mm3 (0.00-0.10); Basophils Percent Auto 0.5 % (0.0-1.0); Eosinophils Absolute Auto 0.09 K/mm3 (0.02-0.50); Eosinophils Percent Auto 1.4 % (1.0-6.0); Hematocrit 40.6 % (35.0-49.0); Hemoglobin 12.8 g/dL (12.0-15.0); Immature Granulocyte Absolute 0.02 K/mm3 (0.00-0.00); Immature Granulocyte Percent A 0.3 % (0.0-0.0); Lymphocytes Absolute Auto 1.54 K/mm3 (1.10-4.50); Lymphocytes Percent Auto 24.1 % (18.0-42.0); Mean Corpuscular HGB Conc 31.5 g/dL (32-36); Mean Corpuscular Hemoglobin 32.1 pg (27.0-31.0); Mean Corpuscular Volume 101.8 fL (78.0-102.0); Mean Platelet Volume 8.6 fl (9.2-11.8); Monocytes Absolute Auto 0.43 K/mm3 (0.10-0.90); Monocytes Percent Auto 6.7 % (2.0-11.0); Neutrophils Absolute Auto 4.27 K/mm3 (1.70-7.20); Platelet Count Result 145 K/mm3 (150-420); Red Blood Count 3.99 M/mm3 (4.20-5.40); Red Cell Distribution Width 14.6 % (11.6-14.4); White Blood Count 6.4 K/mm3 (4.8-10.8)
== END 2024-04-06 11:54 | disposition home or self-care (01) ==
LOC: CHSLAB 11:55
PROVIDERS: PCP Internal Medicine; Visit Provider Internal Medicine
DX: D75.89 Other specified diseases of blood and blood-forming organs (principal); D69.6 Thrombocytopenia, unspecified
CPT/HCPCS: 36415; 83921; 85025

== ENCOUNTER 2024-04-18 19:47 | Outpatient (CLI) | payer OTHER, SELFPAY ==
--- OUTSIDE RECORDS SUMMARY | 2024-04-18 19:49 | XMS_ITS | Continuity of Care Document ---
Author Organization [facility] Address [address] [id number] [address] Phone Care Team Providers Care Faculty Neuropsychologist Name Role Phone Pfannenstieyasmin DDS, Rendi Unavailable Unavaila ble Allergies, Adverse Reactions, Alerts Substance Reaction Status Criticality No Known Allergies Active No Inform ation Medications Medication Instructions Dosage Effective Dates (start - stop) Status Comments amoxicillin 500 mg capsule take 1 capsule by ORAL route every 8 hours for dental infection 500 MG - Active [place] 7.5 mg-325 mg tablet take 1 tablet [...] infection 300 MG - No Longer Active White Post 7.5 mg-325 mg tablet take 1 tablet [...] Diagnoses Date Provider Providers Copied on Encounter [facility], [id number]- [facility], [place], [place], [id number], [place] tel:[phone] [facility] No Information 6 Pfannenstiel Rendi. [address] [place], [address], [place]. tel:[phone] Referring Provider: Sparkle Galicia L, [address] [place], [address]. tel:[phone] [facility], [id number]- [place], [id number], [place] tel:[phone] [facility] No Information 6 Pfannenstiel Rendi. [address] [place], [address], [place]. tel:[phone] [facility], [id number]- [place], [id number], [place] tel:[phone] [facility] No Information 6 Pfannenstiel Rendi. [address] [place], [address], [place]. tel:[phone] Referring Provider: Sparkle Galicia L, [address] [place], [address]. tel:[phone] [facility], [id number]- [place], [id number], [place] tel:[phone] [facility] No Information 6 Pfannenstiel Rendi. [address] [place], [address], [place]. tel:[phone] Referring Provider: Sparkle Galicia L, [address] [place], [address]. tel:[phone] Family History Family Member Type Diagnosis Age At Onset Son Problem (finding) Alive and well Payers Payer name Insurance type Covered constitution party ID Authoriza tiabhinav(s) No Information Social History [...]
--- NOTE | 2024-05-06 15:32 | WPDSLEEPSTUD ---
Sleep Study Date of Study: 04/18/24 Ordering Provider: Dejuan Kyle APRN Interpreting Physician: Fariba Shane MD Sleep Study Type: Split Polysomnogram Height: 1.63 m Weight: 104.326 kg Body Mass Index: 39.4 Neck Circumference (inches): 17 [place]: 11 Reason for Sleep Study Loud snoring, gasping; known obstructive sleep apnea * 06/23/2020 Home Sleep Test @[facility] ? mild-moderate sleep apnea, AHI 13; 36 minutes spent below 88% saturation, lowest 76%. CPAP Titration vs APAP 6-16 recommended. * 03/13/2023 split night sleep study - BMI 38.9; mild obstructive sleep apnea, AHI 5.2, desaturation 83%, high supine REM AHI 60, optimal pressure CPAP 8 cm. Sleep History Paola Green is a 43-year-old woman, has obstructive sleep apnea, has been treated with CPAP. She had to return her CPAP due to noncompliance. She now presents for a new sleep study because she wantst o start using PAP again. She has insomnia, has used trazodone; unfortunately insurance would not approve ramelteon or Belsomra either. Insurance would cover Ambien and temazepam, however, these are not recommended for those with untreated sleep apnea. She occasionally awakens from sleep feeling short of breath. She rarely awakens at night with heartburn, belching or coughing. She constantly snores, and frequently this is loud enough that others complain about it. She occasionally has difficulty sleeping when she has a cold. She occasionally wakes up gasping for breath at night. She frequently has breathing problems at night observed by others. She does not sweat excessively at night. She rarely notices her heart pounding or beating irregularly at night. She does not fall asleep during the day. She rarely falls asleep involuntarily, never while driving. She does not have loss of muscle tone with strong emotion. She rarely has daytime difficulties due to excessive sleepiness. She does not feel paralyzed on waking or falling asleep. She rarely has vivid dreamlike scenes upon awakening or falling asleep. She never feels afraid to go to sleep. She rarely has nightmares. She occasionally remembers her dreams. She rarely has racing thoughts. She rarely feels sad, depressed, or anxious. She does not have muscular tension, does not notice parts of her body jerking and she does not kick at night. She rarely has crawling and aching feelings in her legs. She rarely has any kind of leg pain at night. She does not have morning jaw pain. She never grinds her teeth during sleep. She occasionally is bothered by pain during the day. She rarely is awakened by pain at night. Rarely wakes waking is feeling stiff in the morning. She rarely wakes up with sore achy muscles. She occasionally wakes up with pain in the neck and spine. She has fatigue. Normal bedtime is between 10:00 p.m. and 2:00 a.m., and if she takes a sleeping pill she is usually able to fall asleep within a 1/2 hour. If she takes a sleeping aid she does not usually wake often at night. If she does awaken at night, she stays in bed for few minutes trying to get back to sleep but then eventually goes to the bathroom to urinate. Her normal wake time is between 6:00 a.m. and 10:00 a.m.. She keeps the same schedule on weekends. Habits: Tobacco: Cigarettes half pack per day Caffeine: 4 cans per day Alcohol: none Recreational substances: none PMFSH Past Medical History Medical History Hypertrophy of nasal turbinates Deviated nasal septum ADAM (obstructive sleep apnea) Odynophagia BMI 37.0-37.9, adult Seizure age 10 after cyst removed from side of head Fibroid Asthma COPD (chronic obstructive pulmonary disease) History of heart attack CHF (congestive heart failure) Hypertension Surgical History Surgical History History of partial hysterectomy History of tubal ligation Family History Family History Father COPD (chronic obstructive pulmonary disease) Acute myocardial infarction Asthma Mother Lung cancer COPD (chronic obstructive pulmonary disease) Sibling No problems noted. Social History Social History Social History: Caffeine-daily Smoking packs per day: 0.5 Smoking cigarettes per day: 10.0 Years smoked: 32 Smoking pack-years: 16.00 Smoking status: Current every day smoker Tobacco type: cigarettes Second hand tobacco smoke exposure: No Additional smoking assessment comments: PT TRYING TO QUIT SMOKING, ON NICOTINE PATCHES Alcohol intake: current Alcohol use details: Rarely Substance use: never Substance use type: does not use Do You Feel Safe in your Home?: Yes Lack of Transportation: No Lack of Food: Never True Current Housing: I Have Housing Concerned About Future Housing: No Difficulty Paying Gas/Electric Bills: No Difficulty Paying for Meds: No Currently Unemployed: No Education: High School Diploma/GED Difficulty w/ Childcare or Family Care: No Living arrangements: with family Occupation/Education: occupation 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 Gender identity (if verbalized by the patient): Female Spiritual care concerns: No Medications Home Medications ?Medication ?Instructions ?Recorded ?Confirmed ?Type albuterol sulfate 90 mcg/actuation 2 puff inhalation PRN PRN 02/18/19 04/06/24 History aerosol inhaler (ProAir HFA) Bronchospasm ipratropium 0.5 mg-albuterol 3 mg 3 ml inhalation QID PRN 04/02/22 04/06/24 History (2.5 mg base)/3 mL nebulization Bronchospasm soln montelukast 10 mg tablet 10 mg PO DAILY 04/02/22 04/06/24 History sumatriptan succinate 50 mg tablet 50 mg PO ONCE PRN Migraine Headache 04/02/22 04/06/24 History meclizine 25 mg tablet 25 mg PO BID PRN Vertigo 09/27/22 04/06/24 History topiramate 25 mg tablet 25 mg PO DAILY 12/27/22 04/06/24 History verapamil 240 mg tablet,extended 240 mg PO DAILY 01/02/23 04/06/24 History release omega 4-cgm-ahp-fish oil 1,000 mg 1 cap PO DAILY 11/28/23 04/06/24 History (120 mg-180 mg) capsule (Fish Oil) diclofenac sodium 75 mg 75 mg PO BID 12/27/23 04/06/24 History tablet,delayed release famotidine 40 mg tablet 40 mg PO DAILY 12/27/23 04/06/24 History omega-3 fatty acids 1,000 mg 1,000 mg PO DAILY 12/27/23 04/06/24 History capsule omeprazole 20 mg capsule,delayed 20 mg PO DAILY 12/27/23 04/06/24 History release Stiolto Respimat 2.5 mcg-2.5 2 puff inhalation Q24H 90 days #12 03/20/24 04/06/24 Rx mcg/actuation solution for grams inhalation (tiotropium-olodaterol) fluticasone propionate 50 2 spray intranasal DAILY 1 month 04/06/24 04/06/24 Rx mcg/actuation nasal #16 grams spray,suspension eszopiclone 1 mg tablet (Lunesta) 1 mg PO QHS #30 tabs 04/15/24 Rx Sleep Procedure A split night polysomnogram using the Quintiq multi-channel system recorded the standard physiologic parameters including EEG, EOG, submentalis EMG, anterior tibialis EMG, EKG, body position, nasal and oral airflow using nasal pressure sensor and thermistor. Respiratory parameters of chest and abdominal movements were recorded with Respiratory Inductance Plethysmography belts. Oxygen saturation was recorded by pulse oximetry. Video monitoring was also performed. Sleep stages, periodic limb movements, and EEG arousals were scored in 30 second epochs according to the criteria of the AASM Scoring Manual. The Apnea-Hypopnea Index was calculated using CMS guidelines for definition of hypopnea while scoring respiratory events. The patient self-administered Lunesta 3 mg at the start of the sleep study. After the baseline portion the patient met criteria for a titration with an AHI of 8.2 and desaturation to 82%. She used a small ResMed AirFit F30I full face mask and and heated humidity, initial pressure was 5 cm, titrated to 6, 7, 8, 9, 10 cm. At CPAP 10 cm the patient spent 23.5 minutes in bed, 1 minute awake, 1.5 minutes in non-REM and 21 minutes in REM. The sleep efficiency was 95.7% and the residual apnea-hypopnea index was 0. The lowest saturation was 90% supine REM occurred at this setting. Sleep was better consolidated. This is the optimal pressure. Sleep Architecture During the diagnostic portion of the study, the total recording time was 206.9 minutes. The total sleep time was 183.0 minutes. Sleep latency was 15.9 minutes. REM latency was 62.0 minutes. Sleep Efficiency was 88.4%. The patient had 8 awakenings for an awakening index of 2.6. Wake after sleep onset time was 8.0 minutes. The patient spent 7.5 minutes, 4.1% of total sleep time in Stage N1. The patient spent 105.5 minutes, 57.7% in Stage N2. The patient spent 46.5 minutes, 25.4% in Stage N3. The patient spent 23.5 minutes, 12.8% in Stage REM sleep. At 01:13:49 AM the patient was placed on PAP treatment and used CPAP 5 cm water pressure. During the use of CPAP 5 cm, the total recording time was 248.6 minutes. The total sleep time was 241.0 minutes. Sleep latency was 1.5 minutes. REM latency was 80.0 minutes. Sleep Efficiency was 96.9%. Wake after Sleep Onset time was 6.0 minutes. The patient spent 11.0 minutes, 4.6% of total sleep time in Stage N1. The patient spent 145.5 minutes, 60.4% in Stage N2. The patient spent 27.5 minutes, 11.4% in Stage N3. The patient spent 57.0 minutes, 23.7% in Stage REM. Respiratory Analysis During the diagnostic portion of the study, the patient had 24 hypopneas, 1 obstructive apneas, no mixed or central apneas for an overall Apnea Hypopnea Index of 8.2 events per hour. The REM Apnea Hypopnea Index was 51.1. The NREM Apnea Hypopnea Index was 1.9. The patient had a Central Apnea Hypopnea Index of 0. There were no Respiratory Effort Related Arousals. The Respiratory Disturbance Index is 10.8 events per hour. There was no evidence of Glenn-Jon Respirations. During the treatment portion of the study, the patient had no hypopneas, no obstructive, mixed apneas or central apneas for an overall Apnea Hypopnea Index of 0 events per hour. The REM Apnea Hypopnea Index was 0. The NREM Apnea Hypopnea Index was 0. The patient had a Central Apnea Hypopnea Index of 0. There were no Respiratory Effort Related Arousals. The Respiratory Disturbance Index is 1.2 events per hour. There was no evidence of Glenn-Jon Respirations. Arousals During the diagnostic portion of the study, there were a total of 70 arousals for an arousal index of 23.0. There were 7 respiratory arousals for an index of 2.3. There were no periodic limb movement arousals. There were 1 isolated limb movement arousals for an index of 0.3. There were 43 spontaneous arousals for an index of 14.1. During the treatment portion of the study, there were a total of 77 arousals for an index of 19.2. There were 3 respiratory arousals for an index of 0.7. There were no periodic limb movement arousals. There were 3 isolated limb movement arousals for an index of 0.7. There were 55 spontaneous arousals for an index of 13.7. Periodic Limb Movements During the diagnostic portion of the study, the patient had 1 isolated limb movement with an index of 0.3. The patient had no periodic limb movements. The patient had a total of 1 limb movement with a total limb movement index of 0.3. During the treatment portion of the study, the patient had 4 isolated limb movements with an index of 1.0. The patient had no periodic limb movements. The patient had a total of 4 limb movements with a total limb movement index of 1.0. Oximetry Data During the diagnostic portion of the study, the patient had an average oxygen saturation of 96% in wake with a minimum oxygen saturation of 93% and a maximum oxygen saturation of 98%. The patient had an average oxygen saturation of 94.2% in sleep with a minimum oxygen saturation of 84% and a maximum oxygen saturation of 98%. The patient had 39 oxygen desaturations resulting in an Oxygen Desaturation Index of 12.8. The patient spent 3.1 minutes, 1.5% minute of total sleep time with an oxygen saturation less than 88%. During the treatment portion of the study, the patient had an average oxygen saturation of 94.3% in wake with a minimum oxygen saturation of 91% and a maximum oxygen saturation of 96%. The patient had an average oxygen saturation of 93% in sleep with a minimum oxygen saturation of 90% and a maximum oxygen saturation of 97.0%. The patient had 7 oxygen desaturations resulting in an Oxygen Desaturation Index of 1.7. The patient spent no time with an oxygen saturation less than 88%. Snoring Profile Snoring was loud during the baseline, eliminated at CPAP 5 cm water pressure. Cardiac Profile During the diagnostic portion of the study, the EKG showed normal sinus rhythm. The average pulse rate was 81 bpm. The minimum pulse rate was 72 bpm. The maximum pulse rate was 99 bpm. No arrhythmias noted. During the treatment portion of the study, the EKG showed normal sinus rhythm. The average pulse rate was 76.9 bpm. The minimum pulse rate was 64 bpm. The maximum pulse rate was 99 bpm. No arrhythmias noted. EEG Profile EEG was unremarkable, no evidence of seizures. Assessment and Plan Assessment and Plan (1) ADAM (obstructive sleep apnea): Code(s): G47.33 - Obstructive sleep apnea (adult) (pediatric) Status: Acute Assessment and Plan: This split night sleep study on 04/18/2024 shows mild obstructive sleep apnea, an apnea-hypopnea index of 8.2 using a 4% criteria, apnea-hypopnea index 12.5 using a 3% criteria, desaturation 84% and mild snoring. She was successfully treated using CPAP 10 cm water pressure and a small ResMed AirFit F30 I fullface mask with heated humidity. The residual apnea-hypopnea index was 0 and supine REM occurred at this setting. The patient should be prescribed this ResMed equipment as well as tubing, filters and reservoir. This should be used with all episodes of sleep. Compliance should be reviewed within 31-90 days of starting therapy for usage greater than 4 hours per night greater than 70% of the nights. The patient should be asked about symptoms such as excessive daytime sleepiness, quality of sleep, decreased nocturia, increased mental functioning such as memory, mood, and concentration. (2) Poor sleep hygiene: Code(s): Z72.821 - Inadequate sleep hygiene Status: Acute Assessment and Plan: This patient has poor sleep hygiene, has a very wide window for going to bed, between 10:00 p.m. and 2:00 a.m., has a wide window for waking and takes naps during the day. She uses sleep aids. Taking naps and not having a fixed schedule will lead to difficulty falling asleep and staying asleep. I recommend the patient have a set bedtime and wake time, and if she wakes during the night, she should avoid using electronics, and follow regular sleep hygiene instructions. Recommendations to improve sleep quality include: ? Practice a bedtime routine and keep the same sleep schedule including bedtime and wake up time, even on the weekends. Consistency makes it much easier to fall asleep and wake easily. ? If you have trouble sleeping at night, avoid naps, especially in the late afternoon. However, short naps lasting approximately 20 minutes can help alleviate daytime fatigue, sleepiness, and even provide cognitive benefit. Naps longer than 30 minutes can cause sleep inertia, a period of reduced alertness and cognitive performance after waking. ? Exercise daily. ? Maintain a sleep environment conducive to sleep. The bedroom should be comfortably cool. In population studies, nocturnal environmental light and noise significantly impact sleep quality and quantity. Use of blackout curtains, ear plugs, or sound machines may help promote an optimal sleep environment for individuals with sleep disruptions due to environmental stimuli. ? Sleep on a comfortable mattress and pillows. ? Regular bright light exposure in the mornings may help to maximize alertness and maintain a regular circadian rhythm. Studies in extreme latitudes where sunlight is minimal in the winter have found that an hour of exposure to white light in the morning helped subjects go to sleep earlier and wake earlier. Exposure to blue light in the morning may have more robust effects on the stability of the circadian rhythm and has been shown to improve daytime fatigue and sleepiness. ? Avoid cigarettes, caffeine, and heavy meals in the evening. While alcohol use does seem to reduce the time it takes to fall asleep, studies have reported that evening alcohol intake can cause more waking time or light sleep in the second half of the night and reduce self-reported sleep quality. Evening nicotine is associated with lower sleep efficiency and more awake time during the night. ? Wind down with quiet activities that may promote sleep, such as reading with a dim light. Avoid use of electronics at least 30 minutes before habitual bedtime and in the middle of the night if nocturnal awakenings occur. The blue light emitted from computer screens and hand-held devices can suppress natural melatonin production, resulting in difficulty falling asleep; however, the exact duration of use and intensity of lighting that cause this effect are variable in the literature. ? If you cannot sleep, do not look at a clock. Go into another room and do something relaxing until you feel drowsy enough to fall asleep again. Then return to bed. Data The data obtained during this sleep study is adequate for interpretation. Certification This sleep study has been reviewed by a board certified sleep medicine physician.
[2024-05-11 09:15] VITALS: BMI 39.4
== END 2024-04-19 06:08 | disposition home or self-care (01) ==
PROVIDERS: PCP Internal Medicine; Visit Provider Nurse Practitioner Family
DX: G47.33 Obstructive sleep apnea (adult) (pediatric) (principal); Z72.821 Inadequate sleep hygiene
CPT/HCPCS: 95811

== ENCOUNTER 2024-05-28 08:46 | Outpatient (CLI) | payer OTHER, SELFPAY ==
--- NOTE | ~2024-05-28 | CT_ITS ---
CT Facial Bones Clinical Indication: Or mucosal lesion Technique: Following intravenous administration of 75 cc of Omnipaque 350 contrast material, axial sc ans were obtained through the facial bones followed by coronal and sagittal reconstructions. Dose red uction technique was used on this scan by utilizing automated exposure control and iterative reconstr uction technique. The dose-length product (DLP) was 691.21 mGy-cm. Findings: No fractures are identified. The visualized paranasal sinuses are clear. Intraorbital soft tissues appear normal. Parotid and submandibular glands appear unremarkable. No lymphadenopathy seen in the visualized neck or facial region. No soft tissue mass or fluid collection evident. Impression: No significant abnormality seen. Reviewed, dictated and finalized at location . Impression: No significant abnormality seen.
--- OUTSIDE RECORDS SUMMARY | 2024-05-28 08:58 | XMS_ITS | Continuity of Care Document ---
Author Organization [facility] Address [id number] [address] Phone Care Team Providers Care Bilingual Student Tutor Name Role Phone Pfannenstieyasmin DDS, Rendi Unavailable Unavaila ble Allergies, Adverse Reactions, Alerts Substance Reaction Status Criticality No Known Allergies Active No Inform ation Medications Medication Instructions Dosage Effective Dates (start - stop) Status Comments amoxicillin 500 mg capsule take 1 capsule by ORAL route every 8 hours for dental infection 500 MG - Active Dairy 7.5 mg-325 mg tablet take 1 tablet [...] infection 300 MG - No Longer Active Dairy 7.5 mg-325 mg tablet take 1 tablet [...] Diagnoses Date Provider Providers Copied on Encounter [facility], [id number]- [facility], [place], [place], [id number], [place] tel:[phone] [facility] No Information 6 Pfannenstiel Rendi. [address] [place], [address], [place]. tel:[phone] Referring Provider: Sparkle Galicia L, [address] [place], [address]. tel:[phone] [facility], [id number]- [place], [place], [id number], [place] tel:[phone] [facility] No Information 6 Pfannenstiel Rendi. [address] [place], [address], [place]. tel:[phone] [facility], [id number]- [place], [id number], [place] tel:[phone] [facility] No Information 6 Pfannenstiel Rendi. [address] [place], [address], [place]. tel:[phone] Referring Provider: Sparkle Galicia L, [address] [place], [address]. tel:[phone] [facility], [id number]- [place], [place], [id number], [place] tel:[phone] [facility] No Information 6 Pfannenstiel Rendi. [address] [place], [address], [place]. tel:[phone] Referring Provider: Sparkle Galicia L, [address] [place], [address]. tel:[phone] Family History Family Member Type Diagnosis Age [...]
== END 2024-05-28 08:47 | disposition home or self-care (01) ==
LOC: CHSIMG 08:48
PROVIDERS: PCP Internal Medicine; Visit Provider Nurse Practitioner Family
DX: K13.70 Unspecified lesions of oral mucosa (principal)
CPT/HCPCS: 70487; Q9967

== ENCOUNTER 2024-06-08 14:38 | Outpatient (CLI) | payer OTHER, SELFPAY ==
--- NOTE | ~2024-06-08 | CT_ITS ---
EXAMINATION: CT sinus wo con DATE: 06/08/2024 15:11 INDICATION: Chronic ethmoid sinusitis TECHNIQUE: Computed tomography (CT) of the paranasal sinuses was performed without intravenous contra st. The dose-length product was 543.51 mGy-cm. Automated exposure control and iterative reconstructio n technique were employed. COMPARISON: CT dated 02/18/2019 FINDINGS: Paranasal sinuses and mastoids are pneumatized. There is mild mucosal thickening in the rig ht sphenoid sinus. No air-fluid levels. No mucoperiosteal reaction. Left-sided juliette bullosa. Leftwa rd nasal septal deviation. IMPRESSION: 1. Right sphenoid sinusitis. Reviewed, dictated and finalized at location A.
--- OUTSIDE RECORDS SUMMARY | 2024-06-08 16:07 | XMS_ITS | Continuity of Care Document ---
Author Organization [facility] Address [id number] [address] Phone Care Team Providers Care Fish Drier Name Role Phone Pfannenstieyasmin DDS, Rendi Unavailable Unavaila ble Allergies, Adverse Reactions, Alerts Substance Reaction Status Criticality No Known Allergies Active No Inform ation Medications Medication Instructions Dosage Effective Dates (start - stop) Status Comments amoxicillin 500 mg capsule take 1 capsule by ORAL route every 8 hours for dental infection 500 MG - Active [place] Amant 7.5 mg-325 mg tablet take 1 tablet [...] infection 300 MG - No Longer Active [place] Amant 7.5 mg-325 mg tablet take 1 tablet [...] Diagnoses Date Provider Providers Copied on Encounter [facility], [id number] [facility], [place], [place], [id number], [place] tel:[phone] [facility] No Information 6 Pfannenstiel Rendi. [address] [place], [address], [place]. tel:[phone] Referring Provider: Sparkle Galicia L, [address] [place], [address]. tel:[phone] [facility], [id number]- [place], [id number], [place] tel:[phone] [facility] No Information 6 Pfannenstiel Rendi. [address] [place], [address], [place]. tel:[phone] [facility], [id number]- [place], [id number], [place] tel:[phone] [facility] No Information 6 Pfannenstiel Rendi. [address] [place], [address], [place]. tel:[phone] Referring Provider: Sparkle Galicia L, [address] [place], [address]. tel:[phone] [facility], [id number]- [place], [id number], [place] tel:[phone] [facility] No Information 6 Pfannenstiel Rendi. [address] [place], [address], [place]. tel:[phone] Referring Provider: Sparkle Galicia L, [address] [place], [address]. tel:[phone] Family History Family Member Type Diagnosis Age [...]
--- OUTSIDE RECORDS SUMMARY | 2024-06-08 16:07 | XMS_ITS | Encounter Summary ---
Author Organization [facility] Address [facility] [place] [address] Care Team Providers Care Incinerator Operator Name Role Phone Juan Diego Caraballo MD Primary Care Provider [phone] Encounter Details Date Type Department Care Team (Late st Contact Info) Description 06/04/[address] [facility] [address] [facility] [place] [address] Emerita Lyons I, MARIA VICTORIA [address] [place] [address] Social History Tobacco Use Types Packs/Day Years Used Date Smoking Tobacco: Never Assessed Comments Unknown Sex and Gender Information Value Date Recorded Sex Assigned at Female 06/05/2024 9:55 AM CDT Legal Sex Female 6:29 PM CDT Gender Identity Not on file Sexual Orientation Not on file documented as of this encounter Plan of Treatment Not on file documented as of this encounter Results * HELICOBACTER PYLORI, STOOL, EIA (06/04/2024 6:04 PM CDT) H. PYLORI AG (STOOL) NEGATIVE NEGATIVE 06/05/2024 12:59 PM CDT [facility] STOOL SPECIMEN / Unknown 06/04/2024 6:04 PM CDT us Emerita Lyons NP MICROBIOLOGY - GENERAL ORDER AMMY Final Result [facility] [address] [place] [address], [id number] documented in this encounter Visit Diagnoses Diagnosis Thrombocytopenia- Primary Thrombocytopenia, unspecified documented in this encounter Care Teams Incinerator Operator Relationship Specialty Start Date End Date Juan Diego Caraballo MD [address] [place] [address] PCP - General INTERNAL MEDICINE 06/05/24 documented as of this encounter
--- OUTSIDE RECORDS SUMMARY | 2024-06-08 16:07 | XMS_ITS | Data Portability ---
Author Organization [facility] [place] Address [address] [place] [address] Care Team Providers Care Cabin Man Name Role Phone SHANDATEJINDER ABARCA Primary Care Provider Assessment No assessment recorded. Plan of Treatment Reminders Order Date Submit Date Provider Last Modified By Organization Details Last Modified Time Details Appointments None recorded. Lab None recorded. Referral None recorded. Procedures None recorded. Surgeries total hysterectom y, laparoscopi c, with bilateral salpingecto my (SURG) 2022 023 [facility], [facility] [address], [place], [address], 10:59:25 Imaging None recorded. Medication Orders None recorded. Patient TargetsNo targets recorded. Patient InstructionsNo instructions recorded. Reason for Referral None Reported. Results Created Date Observation Date Name Description Value Unit Range Abnormal Flag Note LastModifiedBy Organization Detail LastModifiedTime Result Notes None recorded. Procedures Surgical History Date Name Laterality Status Provider Name and Address Organization Details Recorded Time 10/17/19 23 TOTAL HYSTERECTOMY, LAPAROSCOPIC, WITH BILATERAL SALPINGECTOMY (SURG) completed Alesha Torres [facility] 10/17/2022 10:49:48 08/16/19 23 Date of Last Pap Smear completed [facility] 09/14/2022 12:11:28 07/28/19 23 Date of Last Mammogram completed [facility] 09/14/2022 12:42:50 03/11/19 22 repair of stress incontinence by suprapubic sling completed [facility] 10/08/2022 12:04:02 03/11/19 12 Endometrial Ablation completed [facility] 09/14/2022 12:40:49 03/11/19 11 Endometrial Ablation completed [facility] 09/14/2022 12:40:46 06/24/19 10 section completed [facility] 10/08/2022 12:03:17 03/11/19 10 Tubal Ligation completed [facility] 10/08/2022 12:02:44 07/24/19 08 section completed [facility] 10/08/2022 12:03:11 03/11/19 07 Ovarian Cystectomy completed [facility] 10/08/2022 12:02:31 09/02/19 04 section completed [facility] 10/08/2022 12:03:04 03/11/18 91 excision of sebaceous cyst of head or neck completed [facility] 10/08/2022 12:02:37 Tubal Ligation completed [facility] 10/22/2022 12:16:33 Endometrial Ablation completed [facility] 10/22/2022 12:16:33 Ovarian Cystectomy completed [facility] 10/22/2022 12:16:33 Imaging Results None recorded. Procedure Notes None recorded. Medical Equipment None Reported. Allergies No known drug allergies Medications Name Sig Start Date Stop Date Status Note LastModified by Organization Details LastModified Time buspirone 5 mg tablet TAKE 1 TABLET BY MOUTH TWICE A DAY active Not Available Not Available No t Available bupropion HCl SR 150 mg tablet,12 hr sustained-r elease active Not Available Not Available Not Available prednisone 10 mg tablet active Not Available Not Available Not Available ipratropium 0.5 mg-albutero l 3 mg (2.5 mg base)/3 mL nebulizatio n soln INHALE 3 MILLILITE RS BY NEBULIZAT ION ROUTE 4 TIMES PER DAY active Not Available Not Available No t Available trazodone 50 mg tablet active Not Available Not Available Not Available azithromyci n 250 mg tablet active Not Available Not Available Not Available nicotine (polacrilex ) 2 mg gum 10/08 completed Not Available Not Available Not Available sucralfate 100 mg/mL oral suspension TAKE 10 MILLILITE RS BY MOUTH 4 TIMES A DAY ON AN EMPTY STOMACH 1 HOUR BEFORE MEALS AND AT BEDTIME active Not Available Not Available No t Available famotidine 40 mg tablet TAKE 1 TAB BY MOUTH TWICE A DAY active Not Available Not Available No t Available verapamil ER (SR) 180 mg tablet,exte nded release 10/08 completed Not Available Not Available Not Available sumatriptan 50 mg tablet TAKE 1 TABLET BY MOUTH AT ONSET OF MIGRAINE, MAY REPEAT AFTER 2 HOURS IF HEADACHE RETURNS active Not Available Not Available No t Available topiramate 25 mg tablet TAKE 1 TABLET BY MOUTH AT BEDTIME active Not Available Not Available No t Available [facility] Verapamil HCl CR 240 mg tablet,exte nded release active Not Available Not Available Not Available acetaminoph en 300 mg-codeine 30 mg tablet active Not Available Not Available Not Available sulfamethox azole 800 mg-trimetho prim 160 mg tablet active Not Available Not Available Not Available oxycodone-a cetaminophe n 5 mg-325 mg tablet TAKE 1 TABLET BY MOUTH EVERY 4 HOURS NEEDED FOR PAIN active Not Available Not Available No t Available meclizine 25 mg tablet TAKE 1 TO 2 TABLETS BY MOUTH 3 TIMES A DAY NEEDED active Not Available Not Available No t Available doxycycline monohydrate 100 mg capsule active Not Available Not Available Not Available pantoprazol e 40 mg tablet,betsey yed release TAKE 1 TABLET BY ORAL ROUTE ONCE DAILY IN THE AFTERNOON active Not Available Not Available No t Available buspirone 10 mg tablet TAKE 1 TABLET BY MOUTH TWICE A DAY active Not Available Not Available No t Available nicotine 21 mg/24 hr daily transdermal patch active Not Available Not Available Not Available diclofenac sodium 75 mg tablet,betsey yed release active Not Available Not Available Not Available verapamil ER (SR) 240 mg tablet,exte nded release TAKE 1 TABLET BY MOUTH AT BEDTIME active Not Available Not Available No t Available montelukast 10 mg tablet TAKE 1 TABLET BY MOUTH EVERY DAY IN THE EVENING active Not Available Not Available No t Available albuterol 90 mcg/actuati on aerosol inhaler active Not Available Not Available Not Available ergocalcife rol (vitamin D2) 1,250 mcg (50,000 unit) capsule active Not Available Not Available Not Available methylpredn isolone 4 mg tablets in a dose pack active Not Available Not Available Not Available albuterol sulfate HFA 90 mcg/actuati on aerosol inhaler INHALE 1-2 PUFFS BY MOUTH EVERY 4 HOURS NEEDED active Not Available Not Available No t Available hydroxyzine HCl 10 mg tablet TAKE 1 TABLET BY MOUTH TWICE A DAY active Not Available Not Available No t Available nicotine 7 mg/24 hr daily transdermal patch active Not Available Not Available Not Available eszopiclone 3 mg tablet 3 MG ORALLY EVERY DAY AT BEDTIME TAKE TABLET WITH YOU TO SLEEP CENTER FOR SLEEP STUDY, IF NEEDED active Not Available Not Available No t Available Advair HFA 230 mcg-21 mcg/actuati on aerosol inhaler INHALE 2 PUFFS BY MOUTH TWICE A DAY IN THE MORNING AND IN THE EVENING active Not Available Not Available No t Available Acid Principal Bioinformatics Specialist (famotidine ) active Not Available Not Available Not Available Spiriva Respimat 2.5 mcg/actuati on solution for inhalation INHALE 2 PUFFS BY MOUTH DAILY AT THE SAME TIME EACH DAY active Not Available Not Available No t Available Stiolto Respimat 2.5 mcg-2.5 mcg/actuati on solution for inhalation INHALE 2 PUFFS BY MOUTH EVERY DAY active Not Available Not Available No t Available bupropion HCl 150 mg tablet,12 hr sustained-r elease(smok ing deterrent) active Not Available Not Available N ot Available Paxlovid 300 mg (150 mg x 2)-100 mg tablets in a dose pack TAKE 3 TABLETS BY MOUTH TWICE DAILY FOR 5 DAYS 10/08 completed Not Available Not Available Not Available Vitals Date Recorded Body height Body mass index (BMI) Body weight Systolic blood pressure Diastolic blood pressure Provider Name and Address Organization Details Last Updated DateTime 09/14/2022 160.02 cm 38.3 kg/m2 04312.95 g 137 mm[Hg] 82 mm[Hg] Molly [facility] 3 12:09:49 Date Recorded Body height Body mass index (BMI) Body weight Systolic blood pressure Diastolic blood pressure Provider Name and Address Organization Details Last Updated DateTime 10/08/2022 160.02 cm 38.4 kg/m2 23374.54 g 122 mm[Hg] 77 mm[Hg] Chiqui Larios [facility] 3 11:59:01 Date Recorded Body height Body mass index (BMI) Body weight Systolic blood pressure Diastolic blood pressure Provider Name and Address Organization Details Last Updated DateTime 10/22/2022 160.02 cm 38.1 kg/m2 64414.36 g 133 mm[Hg] 85 mm[Hg] [facility] 3 12:16:26 Date Recorded Body height Body mass index (BMI) Body weight Systolic blood pressure Diastolic blood pressure Provider Name and Address Organization Details Last Updated DateTime 12/27/2022 160.02 cm 38.3 kg/m2 54423.95 g 129 mm[Hg] 84 mm[Hg] [facility] 3 12:51:18 Social History Question Answer Notes LastModified by Organizat ion Details LastModified Time Tobacco Smoking Status Current Every Day Smoker [facility] 12/27/2022 11:51:16 What Is Your Level Of Alcohol Consumption? Occasional Information not available 09/14/2022 How Many Years Have You Consumed Alcohol? 27 Information not available 09/14/2022 Are You Blind Or Do You Have Difficulty Seeing? No Information not available 09/14/2022 What Is Your Level Of Caffeine Consumption? Heavy Information not available 09/14/2022 How Much Tobacco Do You Chew? None Information not available 09/14/2022 In The 14 Days Before Symptom Onset, Have You Had Close [facility] That Case Was [facility]? No Information not available 09/14/2022 In The 14 Days Before Symptom Onset, Have You Had Close Contact With A Person Who Is Under Investigation For COVID-19 While That Person Was Ill? No Information not available 09/14/2022 Have You Been To An Area Known To Be High Risk For COVID-19? No Information not available 09/14/2022 Are You Deaf Or Do You Have Serious Difficulty Hearing? No Information not available 09/14/2022 What Type Of Diet Are You Following? REGULAR Information not available 09/14/2022 What Is The Highest Grade Or Level Of School You Have Completed Or The Highest Degree You Have Received? 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 No Information not available 09/14/2022 Do You Use Protection During Sex? No Information not available 09/14/2022 Do You Use Your Seat Belt Or Car Seat Routinely? Yes Information not available 09/14/2022 Do You Have Smoke And Carbon Monoxide Detectors In Your Home? Yes Information not available 09/14/2022 At What Age Did You Start Smoking Tobacco? 10 Information not available 09/14/2022 How Much Tobacco Do You Smoke? 1 PPD Information not available 09/14/2022 Do You Feel Stressed (tense, Restless, Nervous, Or Anxious, Or Unable To Sleep At Night)? [id number] Information not available 09/14/2022 Do You Use Any Illicit Or Recreational Drugs? No Information not available 09/14/2022 Do You Use Sunscreen Routinely? No Information not available 09/14/2022 How Many Years Have You Smoked Tobacco? 32 Information not available 09/14/2022 Have You Used IV Drugs? No Information not available 09/14/2022 Sex: Unknown Functional Status Question Answer Note LastModified by Organizat ion Details LastModified Time Do you have difficulty walking or climbing stairs? No [email or web address] Information not available 12/27/2022 Are you able to walk? YESWOREST Information not available 09/14/2022 Are you able to care for yourself? Yes [email or web address] Information not available 12/27/2022 Do you have difficulty dressing or bathing? No [email or web address] Information not available 12/27/2022 What is your exercise level? Moderate Information not available 09/14/2022 Mental Status None recorded. Family History Relationship Description Onset Age of this Age Resolved Age Notes LastModified by Organization Details LastModified Time Mother Asthma Not available 09/14/2022 12:39:47 Mother Anxiety disorder Not available 2022 12:39:47 Maternal Aunt Osteoporosis N ot available 09/14/2022 12:39:47 Maternal Grandmother Asthma Not available 09/2022 12:39:47 Maternal Grandmother Anxiety disorder Not available 2022 12:39:47 Maternal Grandmother Osteoporosis Not available 09/14/2022 12:39:47 Son Asthma Not available 09/14/2022 12:39:47 Daughter Anxiety disorder Not available 2022 12:39:47 Sister Asthma Not available 09/14/2022 12:39:47 Sister Substance abuse Not available 2022 12:39:47 Father Asthma Not available 09/14/2022 12:39:47 Medical History Condition Response Allergies (Food, seasonal, environmental ) Y Other N Blood Transfusion N Drug/Latex Allergies/Reactions N Breast Cancer N Dermatologic Disorders N Lung Disease Y Defects or Inherited Disease N Breast Problem N Gestational Diabetes N Hematologic disorders N Anesthesia Complications N History of STI N Deep Vein Thrombosis N Polycystic ovary syndrome N Anxiety Disorder Y Autoimmune disease N Arthritis Y Infertility N Polyps N Acid Reflux (GERD) Y History of abnormal pap Y Cancer N Stroke N Varicosities N Neurologic/Epilepsy Y Endometriosis N High Cholesterol N Headaches Y Fibromyalgia N Kidney Disease N Heart Problems Y Kidney or Bladder Problems Y Thyroid Problems N GI Problems N Eating Disorder N Anemia N Art (IVF or FET) N Psychiatric Illness N Ovarian Cancer N Diabetes N Pulmonary (TB, Asthma) Y Hepatitis/Liver Disease N No Past Medical History N Eczema N Urinary Tract Infection N Abuse/Domestic Violence N Asthma Y Trauma/Violence N Depression/ depression Y Heart Disease N Pre-Eclampsia N Hypertension N Osteoporosis N Thrombophilias N Gynecological History Statement/Question Response Date of Last Mammogram 07/27/2022 Date of LMP 03/11/2011 On BCP's at Conception? Y N STIs/STDs N HPV Vaccine N Current Control Method Hysterectom y Age at First Child 20 Sexually Active? Y Date of DEXA bone scan Age of first menstrual cycle 10 Date of Last Pap Smear 08/15/2022 Sexual Problems? Y Desired Control Method Ablation LMP Unknown N 03/11/2000 Obstetrics History GPAL:G 5 P 4 0 1 4 Type Value Full Term 4 Spontaneous 1 Living 4 Total 5 Past Encounters Encounter ID Performer Location Encounter Start Date Encounter Closed Date Diagnosis/Indication Diagnosis SNOMED-CT Code Diagnosis ICD10 Code Diagnosis Note [id number] Shade Santacruz MD [place] [address] [address] 09/14/2022 11:38:18 09/14/2022 14:15:00 Uterine leiomyoma [id number] D25.9 Patient is a 42-year-ol d female who presents for pelvic pain and dyspareuni a. She has a fibroid uterus. She has longstandi ng pelvic pain and pain with intercours e. She has a 15-16 year history of pelvic pain and pain with intercours e. She was examined today. She has pelvic sidewall pain but also cervical motion tenderness . It is a little difficult to discern the etiology of her pain with intercours e but she does have a 4 cm in fibroid and would like that removed. She has has a history of 2 ablations in her pain may be related to the previous ablations as well. At that time we can also evaluate the pelvis for other etiologies of pelvic pain. spent 40 minutes face-to-fa ce. More than 50% was counseling . Made a decision to perform surgery. Dyspareunia [id number] N94 .10 [id number] Shade Santacruz MD [place] [address] [address] 10/08/2022 10:54:05 10/08/2022 12:26:54 Uterine leiomyoma [id number] D25.9 this patient is a 42-year-ol d female with symptomati c uterine fibroids. We have agreed from total laparoscop ic hysterecto my and bilateral salpingect new. She understand s the risks, benefits, and alternativ es. She has completed the informed consent process and is ready to proceed. [id number] Merly Vázquez [place] [address] [address] 10/18/2022 09:59:42 10/18/2022 10:01:58 [id number] Shade Santacruz MD [place] [address] [address] 10/22/2022 11:32:35 10/22/2022 12:42:19 Postoperative care [id number] Z48.89 patient is a 42-year-ol d female presents for postop follow-up. She is 1 week postop from a total laparoscop ic hysterecto my bilateral salpingect new. She has no complaints . Her incisions are clean dry and intact. She is recovering normally. She will follow-up as needed. [id number] Shade Santacruz MD [place] [address] [address] 12/27/2022 11:51:02 12/27/2022 13:34:01 Dyspareunia [id number] N94.10 42-year-ol d female who presents for follow-up on dyspareuni a. She recently had a hysterecto my in in hopes of improving dyspareuni a. She is recovered from that normally but still has intermitte nt dyspareuni a. We talsked about treatment options and evaluation options. She is going to see a gastrointe stinal doctor. She is also agreed to physical therapy, pelvic floor therapy. We spent over 20 minutes face-to-fa ce. More than 50% was couneg. Health Concerns Section Related Observation LastModified by Organization Detai ls LastModified Time None Recorded Concern Status LastModified by Organization Details LastModified Time None Recorded Advance Directives Directive None Recorded Payers Encounter Date Sequence Insurance Name Policy Number Policy Everett Covered Member ID Everett Member ID Guarantor Name 09/14/2022 1 [facility] ON OR AFTER 09/08/20 (MEDICAID REPLACEMENT - HMO) Paola Cordobagel [id number] Paola Turcios [place] 10/08/2022 1 [facility] DOS ON OR AFTER 20 (MEDICAID REPLACEMENT - HMO) Paola Turcios [place] [id number] Paola Turcios [place] 10/16/2022 1 [facility] - DOS ON OR AFTER 20 (MEDICAID REPLACEMENT - HMO) Paola L Hegel [id number] Paola L [place] 10/22/2022 1 [facility] - DOS ON OR AFTER 20 (MEDICAID REPLACEMENT - HMO) Paola Turcios Hegel [id number] Paola L [place] 12/27/2022 1 [facility] DOS ON OR AFTER 20 (MEDICAID REPLACEMENT - HMO) Paola Cordobagel [id number] Paola Turcios [place] Notes Date Note Type Note Provider Name and Address Organization Details Recorded Time 09/14/2022 text/html Patient is a 42-year-old female who presents for pelvic pain and dyspareunia. She has a fibroid uterus. She has longstanding pelvic pain and pain with intercourse. She has a 15-16 year history of pelvic pain and pain with intercourse. She was examined today. She has pelvic sidewall pain but also cervical motion tenderness. It is a little difficult to discern the etiology of her pain with intercourse but she does have a 4 cm in fibroid and would like that removed. She has has a history of 2 ablations in her pain may be related to the previous ablations as well. At that time we can also evaluate the pelvis for other etiologies of pelvic pain. Shade Santacruz MD [address], [place], [address], [facility] 09/14/2022 13:09:18 10/08/2022 text/html this patient is 42-year-old female with uterine myoma. We have agreed to perform total laparoscopic hysterectomy And bilateral salpingectomy. The patient understands the procedure. The procedure was described to the patient in great detail. the patient also understands the risks. The risks were also explained in detail. She understands that injuries May occur during surgery. She understands these injuries can result in hospitalization, more surgery, and severe illness. She understands there is risk of hemorrhage and infection. Shade Santacruz MD [address], [place], [address], [facility] 10/08/2022 12:20:09 10/22/2022 text/html female Patient presents for postop follow-up. She is 1 week postop from a total laparoscopic hysterectomy bilateral salpingectomy. She has no complaints. Her incisions are clean dry and intact. She is recovering normally. She will follow-up as needed. .b Shade Santacruz MD [address], [place], [address], [facility] 10/22/2022 12:41:32 12/27/2022 text/html 42-year-old fema tierra who presents for follow-up on dyspareunia. She recently had a hysterectomy in in hopes of improving dyspareunia. She is recovered from that normally but still has intermittent dyspareunia. We talsked about treatment options and evaluation options. She is going to see a gastrointestinal doctor. She is also agreed to physical therapy, pelvic floor therapy. We spent over 20 minutes [id number]. More than 50% was couneg. Shade Santacruz MD [address], [place], [address], [facility] 12/27/2022 13:18:46 OBGyn Episode Ob Episode Information Episode Created Date Number of Fetuses Patient Bloodtype Patient rh Status Prepregnancy Weight lbs Domestic Partner Domestic Partner Phone Father Name Calibration Specialist Status 09/15/19 23 1 CLOSED Fetus Data First Name Last Name Admitted to NICU Weight (g) Sex Living Outcome Pediatric Complications Fetus ID Race Codes Race Delivery Type 3826.95 5704 M Full Term [id number] Primary Brandon Calculation Initial Brandon Date Initial Exam Date Initial Exam Provider Initial Ultrasound Date Last Menstrual Period Date Ultra Sound Weeks Gestation 0 Eighteen To Twenty Week Brandon Update Ultra Sound Date Fundal Height At Umbil Quickening Date Ultra Sound Latest Weeks Gestation Final Brandon Confirmed By Final Brandon Confirmed Date Final Brandon Date Ultra Sound Latest Days Gestation 0 0 Menstrual History Last Menstrual Date Menses Monthly On Bcp Conception Prior Menses Frequency Hcg Plus Date Menarche Onset Age Delivery Information Delivery Date Delivery Type Labor Anesthesia Weeks Gestation Incision Type Labor Labor Length Hrs Delivered By Post Complications Tubal Sterilization Discharge Date Comments 4 Discharge Information Feeding Method Contraceptive Method Maternal HG B and HCT Levels Ob Episode Information Episode Created Date Number of Fetuses Patient Bloodtype Patient rh Status Prepregnancy Weight lbs Domestic Partner Domestic Partner Phone Father Name Calibration Specialist Status 09/15/19 23 1 CLOSED Fetus Data First Name Last Name Admitted to NICU Weight (g) Sex Living Outcome Pediatric Complications Fetus ID Race Codes Race Delivery Type 2721.55 2 F Full Term Repeat Brandon Calculation Initial Brandon Date Initial Exam Date Initial Exam Provider Initial Ultrasound Date Last Menstrual Period Date Ultra Sound Weeks Gestation 0 Eighteen To Twenty Week Brandon Update Ultra Sound Date Fundal Height At Umbil Quickening Date Ultra Sound Latest Weeks Gestation Final Brandon Confirmed By Final Brandon Confirmed Date Final Brandon Date Ultra Sound Latest Days Gestation 0 0 Menstrual History Last Menstrual Date Menses Monthly On Bcp Conception Prior Menses Frequency Hcg Plus Date Menarche Onset Age Delivery Information Delivery Date Delivery Type Labor Anesthesia Weeks Gestation Incision Type Labor Labor Length Hrs Delivered By Post Complications Tubal Sterilization Discharge Date Comments 0 Discharge Information Feeding Method Contraceptive Method Maternal HG B and HCT Levels Ob Episode Information Episode Created Date Number of Fetuses Patient Bloodtype Patient rh Status Prepregnancy Weight lbs Domestic Partner Domestic Partner Phone Father Name Calibration Specialist Status 09/15/19 23 1 CLOSED Fetus Data First Name Last Name Admitted to NICU Weight (g) Sex Living Outcome Pediatric Complications Fetus ID Race Codes Race Delivery Type 1.55 2 F Full Term [id number] Repeat Brandon Calculation Initial Brandon Date Initial Exam Date Initial Exam Provider Initial Ultrasound Date Last Menstrual Period Date Ultra Sound Weeks Gestation 0 Eighteen To Twenty Week Brandon Update Ultra Sound Date Fundal Height At Umbil Quickening Date Ultra Sound Latest Weeks Gestation Final Brandon Confirmed By Final Brandon Confirmed Date Final Brandon Date Ultra Sound Latest Days Gestation 0 0 Menstrual History Last Menstrual Date Menses Monthly On Bcp Conception Prior Menses Frequency Hcg Plus Date Menarche Onset Age Delivery Information Delivery Date Delivery Type Labor Anesthesia Weeks Gestation Incision Type Labor Labor Length Hrs Delivered By Post Complications Tubal Sterilization Discharge Date Comments 8 Discharge Information Feeding Method Contraceptive Method Maternal HG B and HCT Levels Ob Episode Information Episode Created Date Number of Fetuses Patient Bloodtype Patient rh Status Prepregnancy Weight lbs Domestic Partner Domestic Partner Phone Father Name Calibration Specialist Status 10/09/19 23 1 CLOSED Fetus Data First Name Last Name Admitted to NICU Weight (g) Sex Living Outcome Pediatric Complications Fetus ID Race Codes Race Delivery Type 2919.77 1704 M Full Term 55128 Vaginal Delivery Brandon Calculation Initial Brandon Date Initial Exam Date Initial Exam Provider Initial Ultrasound Date Last Menstrual Period Date Ultra Sound Weeks Gestation 0 Eighteen To Twenty Week Brandon Update Ultra Sound Date Fundal Height At Umbil Quickening Date Ultra Sound Latest Weeks Gestation Final Brandon Confirmed By Final Brandon Confirmed Date Final Brandon Date Ultra Sound Latest Days Gestation 0 0 Menstrual History Last Menstrual Date Menses Monthly On Bcp Conception Prior Menses Frequency Hcg Plus Date Menarche Onset Age Delivery Information Delivery Date Delivery Type Labor Anesthesia Weeks Gestation Incision Type Labor Labor Length Hrs Delivered By Post Complications Tubal Sterilization Discharge Date Comments 2 Discharge Information Feeding Method Contraceptive Method Maternal HG B and HCT Levels Ob Episode Information Episode Created Date Number of Fetuses Patient Bloodtype Patient rh Status Prepregnancy Weight lbs Domestic Partner Domestic Partner Phone Father Name Calibration Specialist Status 09/15/19 23 1 CLOSED Fetus Data First Name Last Name Admitted to NICU Weight (g) Sex Living Outcome Pediatric Complications Fetus ID Race Codes Race Delivery Type , Spontane ous Brandon Calculation Initial Brandon Date Initial Exam Date Initial Exam Provider Initial Ultrasound Date Last Menstrual Period Date Ultra Sound Weeks Gestation 0 Eighteen To Twenty Week Brandon Update Ultra Sound Date Fundal Height At Umbil Quickening Date Ultra Sound Latest Weeks Gestation Final Brandon Confirmed By Final Brandon Confirmed Date Final Brandon Date Ultra Sound Latest Days Gestation 0 0 Menstrual History Last Menstrual Date Menses Monthly On Bcp Conception Prior Menses Frequency Hcg Plus Date Menarche Onset Age Delivery Information Delivery Date Delivery Type Labor Anesthesia Weeks Gestation Incision Type Labor Labor Length Hrs Delivered By Post Complications Tubal Sterilization Discharge Date Comments 2 Discharge Information Feeding Method Contraceptive Method Maternal HG B and HCT Levels
--- OUTSIDE RECORDS SUMMARY | 2024-06-08 16:07 | XMS_ITS | Clinical Summary ---
Author Organization [facility] Address [address] [place] [address] Care Team Providers Care Exam Proctor Name Role Phone Juan Diego Caraballo MD Primary Care Provider [phone] Encounters Date Type Department Care Team Description 06/04/2024 6:36 PM CDT - 06/04/2024 11:59 PM CDT Hospital Encounter [facility] [address] [place] [address] Emerita Lyons NP Discharge Disposition: Home or Self Care (Routine Discharge) 06/04/2024 Orders Only [facility] [address] [place] [address] Emerita Lyons NP from Last 3 Months Social History Tobacco Use Types Packs/Day Years Used Date Smoking Tobacco: Never Assessed Comments Unknown Sex and Gender Information Value Date Recorded Sex Assigned at Female 06/05/2024 9:55 AM CDT Legal Sex Female 6:29 PM CDT Gender Identity Not on file Sexual Orientation Not on file Plan of Treatment Health Maintenance Due Date Last Done Comments Cervical Cancer Screening Pa p Smear (Age 30 to 64) Every 3 Years 1979 Annual Physical 07/10/1982 Hepatitis C 07/10/1997 DTaP, Tdap and Td Vaccines ( 1 - Tdap) 07/10/1998 Hepatitis B Vaccines (1 of 3 - 19+ 3-dose series) 07/10/1998 Cervical Cancer Screening Pa p with HPV Testing (Age 30 to 64) Every 5 Years 07/10/2009 Cervical Cancer Screening with HPV 07/10/2009 Mammogram Screening 2019 COVID-19 Vaccine (2023-2 5 season) 2023 HPV Vaccines Aged Out No longer eligi ble based on patient's age to complete this topic Meningococcal B Vaccine Aged Out No l onger eligible based on patient's age to complete this topic Meningococcal Vaccine Aged Out No hayes kari eligible based on patient's age to complete this topic Pneumococcal Vaccine: Pediat rics (0 to 5 Years) and At-Risk Patients (6 to 64 Years) Aged Out No longer eligible b ased on patient's age to complete this topic RSV Immunizations Under 20 Months Aged Out No longer eligible based on patient's age to complete this topic Procedures Procedure Name Priority Date/Time Associated Diagnosis Comments HELICOBACTER PYLORI, STOOL, EIA Routine 06/04/2024 6:04 PM CDT Thrombocytopenia from Last 3 Months Results * HELICOBACTER PYLORI, STOOL, EIA (06/04/2024 6:04 PM CDT) H. PYLORI AG (STOOL) NEGATIVE NEGATIVE 06/05/2024 12:59 PM CDT [facility] STOOL SPECIMEN / Unknown 06/04/2024 6:04 PM CDT us Emerita Lyons FIELD SALES TRAINER MICROBIOLOGY - GENERAL ORDER AMMY Final Result [facility] [address] [place] [address], [id number] from Last 3 Months Care Teams Exam Proctor Relationship Specialty Start Date End Date Juan Deigo Caraballo MD [address] [place] [id number] PCP - General INTERNAL MEDICINE 06/05/24
== END 2024-06-08 14:39 | disposition home or self-care (01) ==
PROVIDERS: PCP Internal Medicine; Visit Provider Otolaryngology Otolaryngology/Facial Plastic Surgery
DX: J32.2 Chronic ethmoidal sinusitis (principal)
CPT/HCPCS: 70486

== ENCOUNTER 2024-07-10 08:38 | Outpatient (CLI) | payer OTHER, SELFPAY ==
[2024-07-10 14:46] LABS: Cholesterol 164 mg/dL (0-200); HDL Direct 29 mg/dL (40-60); LDL Cholesterol Calculated 60 mg/dL (<130); Triglycerides 374 mg/dL (0-150)
--- OUTSIDE RECORDS SUMMARY | 2024-07-11 12:55 | XMS_ITS | Clinical Summary ---
Author Organization [facility] Address [address] [place] [address] Care Team Providers Care Shot Hole Driller Name Role Phone Juan Diego Caraballo MD Primary Care Provider [phone] Encounters Date Type Department Care Team Description 06/04/2024 6:36 PM CDT - 06/04/2024 11:59 PM CDT Hospital Encounter [facility] [address] [place] [address] Emerita Lyons NP Discharge Disposition: Home or Self Care (Routine Discharge) 06/04/2024 Orders Only [facility] [address] [place] [address] Emerita Lyons NP from Last 3 Months [...] 5 Years) and At-Risk Patients (6 to 49 Years) Aged Out No longer eligible b [...] (STOOL) NEGATIVE NEGATIVE 06/05/2024 12:[address] [facility] STOOL SPECIMEN / Unknown 06/04/2024 6:04 PM CDT Emerita Lyons NP MICROBIOLOGY - GENERAL ORDER AMMY Final Result [facility] [address] [place] [address], [id number] from Last 3 Months Insurance [place] Care Teams Shot Hole Driller Relationship Specialty Start Date End Date Juan Diego Caraballo MD [address] [place] [address] PCP - General INTERNAL MEDICINE 06/04/24
--- OUTSIDE RECORDS SUMMARY | 2024-07-11 12:56 | XMS_ITS | Data Portability ---
Author Organization [facility] [place] Address [address] [place] [address] Care Team Providers Care Statement Clerks Supervisor Name Role Phone SHANDATEJINDER ABARCA Primary Care Provider Assessment No assessment recorded. Plan of Treatment Reminders Order Date Submit Date Provider Last Modified By Organization Details Last Modified Time Details Appointments None recorded. Lab None recorded. Referral None recorded. Procedures None recorded. Surgeries total hysterectom y, laparoscopi c, with bilateral salpingecto my (SURG) 2022 023 [facility], [facility] [address], [place], [address], 10:59:25 Imaging None recorded. Medication Orders None [...] WITH BILATERAL SALPINGECTOMY (SURG) completed Alesha Torres [facility] 10/17/2022 10:49:48 08/16/19 23 Date of Last Pap Smear completed [facility] 09/14/2022 12:11:28 07/28/19 23 Date of Last Mammogram completed [facility] 09/14/2022 12:42:50 03/11/19 22 repair of stress incontinence by suprapubic sling completed [facility] 10/08/2022 12:04:02 03/11/19 12 Endometrial Ablation completed [facility] 09/14/2022 12:40:49 03/11/19 11 Endometrial Ablation completed [facility] 09/14/2022 12:40:46 06/24/19 10 section completed [facility] 10/08/2022 12:03:17 03/11/19 10 Tubal Ligation completed [facility] 10/08/2022 12:02:44 07/24/19 08 section completed [facility] 10/08/2022 12:03:11 03/11/19 07 Ovarian Cystectomy completed [facility] 10/08/2022 12:02:31 09/02/19 04 section completed [facility] 10/08/2022 12:03:04 03/11/18 91 excision of sebaceous cyst of head or neck completed [facility] 10/08/2022 12:02:37 Tubal Ligation completed [facility] 10/22/2022 12:16:33 Endometrial Ablation completed [facility] 10/22/2022 12:16:33 Ovarian Cystectomy completed [facility] 10/22/2022 12:16:33 Imaging Results None recorded. [...] Not Available Not Available No t Available [facility] Verapamil HCl CR 240 mg tablet,exte nded [...] Available Not Available No t Available Acid Laborer Tree Tapping (famotidine ) active Not Available Not Available [...] Updated DateTime 09/14/2022 160.02 cm 38.3 kg/m2 85927.95 g 137 mm[Hg] 82 mm[Hg] Molly [facility] 3 12:09:49 Date Recorded Body height Body mass index (BMI) Body weight Systolic blood pressure Diastolic blood pressure Provider Name and Address Organization Details Last Updated DateTime 10/08/2022 160.02 cm 38.4 kg/m2 51777.54 g 122 mm[Hg] 77 mm[Hg] Chiqui Larios [facility] 3 11:59:01 Date Recorded Body height Body mass index (BMI) Body weight Systolic blood pressure Diastolic blood pressure Provider Name and Address Organization Details Last Updated DateTime 10/22/2022 160.02 cm 38.1 kg/m2 51138.36 g 133 mm[Hg] 85 mm[Hg] [facility] 3 12:16:26 Date Recorded Body height Body mass index (BMI) Body weight Systolic blood pressure Diastolic blood pressure Provider Name and Address Organization Details Last Updated DateTime 12/27/2022 160.02 cm 38.3 kg/m2 63686.95 g 129 mm[Hg] 84 mm[Hg] [facility] 3 12:51:18 Social History Question Answer Notes LastModified by Organizat ion Details LastModified Time Tobacco Smoking Status Current Every Day Smoker [facility] 12/27/2022 11:51:16 What Is Your Level [...] Have You Had Close [facility] While That Case Was Ill? No Information [...] Or The Highest Degree You Have Received? [id number] Information not available 09/14/2022 What Is Your [...] Anxious, Or Unable To Sleep At Night)? [id number] Information not available 09/14/2022 Do You Use [...] have difficulty walking or climbing stairs? No [email or web address] Information not available 12/27/2022 Are you able to walk? [email or web address] Information not available 09/14/2022 Are you able to care for yourself? Yes [email or web address] Information not available 12/27/2022 Do you have difficulty dressing or bathing? No Information not available 12/27/2022 What is your [...] (Food, seasonal, environmental ) Y Other N Breast Cancer N Drug/Latex Allergies/Reactions N Blood Transfusion N Dermatologic Disorders N Lung Disease Y [...] SNOMED-CT Code Diagnosis ICD10 Code Diagnosis Note [id number] Shade Santacruz MD [place] [address] [address] 09/14/2022 11:38:18 09/14/2022 14:15:00 Uterine leiomyoma 14223174 D25.9 Patient is a 42-year-ol d female [...] Made a decision to perform surgery. Dyspareunia [id number] N94 .10 [id number] Shade Santacruz MD [place] [address] [address] 10/08/2022 10:54:05 10/08/2022 12:26:54 Uterine leiomyoma [id number] D25.9 this patient is a 42-year-ol d female with symptomati c uterine fibroids. We have agreed from total laparoscop ic hysterecto my and bilateral salpingect new. She understand s the risks, benefits, and alternativ es. She has completed the informed consent process and is ready to proceed. [id number] Shade Santacruz MD [place] [address] [address] 10/18/2022 09:59:42 10/18/2022 10:01:58 [id number] Shade Santacruz MD [place] [address] [address] 10/22/2022 11:32:35 10/22/2022 12:42:19 Postoperative care [id number] Z48.89 patient is a 42-year-ol d female presents for postop follow-up. She is 1 week postop from a total laparoscop ic hysterecto my bilateral salpingect new. She has no complaints . Her incisions are clean dry and intact. She is recovering normally. She will follow-up as needed. [id number] Shade Santacruz MD [place] [address] [address] 12/27/2022 11:51:02 12/27/2022 13:34:01 Dyspareunia [id number] N94.10 42-year-ol d female who presents for [...] Everett Member ID Guarantor Name 09/14/2022 1 [facility] ON OR AFTER 09/08/20 (MEDICAID REPLACEMENT - HMO) Paola Elizabeth [id number] Paola Turcios [place] 10/08/2022 1 [facility] ON OR AFTER 09/08/20 (MEDICAID REPLACEMENT - HMO) Paola Elizabeth [id number] Paola Turcios [place] 10/16/2022 1 [facility] ON OR AFTER 09/08/20 (MEDICAID REPLACEMENT - HMO) Paola Elizabeth [id number] Poala Turcios [place] 10/22/2022 1 [facility] ON OR AFTER 20 (MEDICAID REPLACEMENT - HMO) Paola Elizabeth [id number] Paola Turcios [place] 12/27/2022 1 [facility] ON OR AFTER 09/08/20 (MEDICAID REPLACEMENT - HMO) Paola Elizabeth [id number] Paola Turcios [place] Notes Date Note Type [...] of pelvic pain. Shade Santacruz MD [address], [place], [address], [facility] 09/14/2022 13:09:18 10/08/2022 text/html this patient [...] hemorrhage and infection. Shade Santacruz MD [address], [place], [address], , [facility] 10/08/2022 12:20:09 10/22/2022 text/html female Patient presents for postop follow-up. She is 1 week postop from a total laparoscopic hysterectomy bilateral salpingectomy. She has no complaints. Her incisions are clean dry and intact. She is recovering normally. She will follow-up as needed. .b Shade Santacruz MD [address], [place], [address], , [facility] 10/22/2022 12:41:32 12/27/2022 text/html 42-year-old fema [...] floor therapy. We spent over 20 minutes [id number]. More than 50% was couneg. Shade Santacruz MD [address], [place], [address], , [facility] 12/27/2022 13:18:46 OBGyn Episode Ob Episode Information Episode Created Date Number of Fetuses Patient Bloodtype Patient rh Status Prepregnancy Weight lbs Domestic Partner Domestic Partner Phone Father Name New Car Get Ready Mechanic Status 09/15/19 23 1 CLOSED Fetus Data First Name Last Name Admitted to NICU Weight (g) Sex Living Outcome Pediatric Complications Fetus ID Race Codes Race Delivery Type 3826.95 5704 M Full Term [id number] Primary Brandon Calculation Initial Brandon Date Initial [...] Domestic Partner Domestic Partner Phone Father Name New Car Get Ready Mechanic Status 09/15/19 23 1 CLOSED Fetus Data First Name Last Name Admitted to NICU Weight (g) Sex Living Outcome Pediatric Complications Fetus ID Race Codes Race Delivery Type 1.55 2 F Full Term Repeat Brandon Calculation [...] Domestic Partner Domestic Partner Phone Father Name New Car Get Ready Mechanic Status 09/15/19 23 1 CLOSED Fetus Data First Name Last Name Admitted to NICU Weight (g) Sex Living Outcome Pediatric Complications Fetus ID Race Codes Race Delivery Type 1.55 2 F Full Term Repeat Brandon Calculation [...] Domestic Partner Domestic Partner Phone Father Name New Car Get Ready Mechanic Status 09/15/19 23 1 CLOSED Fetus Data First Name Last Name Admitted to NICU Weight (g) Sex Living Outcome Pediatric Complications Fetus ID Race Codes Race Delivery Type , Spontane ous Brandno Calculation Initial Brandon Date Initial Exam Date [...] Domestic Partner Domestic Partner Phone Father Name New Car Get Ready Mechanic Status 10/09/19 23 1 CLOSED Fetus Data First Name Last Name Admitted to NICU Weight (g) Sex Living Outcome Pediatric Complications Fetus ID Race Codes Race Delivery Type 2919.77 1704 M Full Term Vaginal Delivery Brandon Calculation Initial Brandon Date [...]
--- OUTSIDE RECORDS SUMMARY | 2024-07-11 12:56 | XMS_ITS | Continuity of Care Document ---
Author Organization [facility] Address [id number] [address] Phone Care Team Providers Care Medical Driver Name Role Phone Pfannenstieyasmin DDS, Rendi Unavailable Unavaila ble Allergies, Adverse Reactions, Alerts Substance Reaction Status Criticality No Known Allergies Active No Inform ation Medications Medication Instructions Dosage Effective Dates (start - stop) Status Comments amoxicillin 500 mg capsule take 1 capsule by ORAL route every 8 hours for dental infection 500 MG - Active Elma 7.5 mg-325 mg tablet take 1 tablet [...] infection 300 MG - No Longer Active Elma 7.5 mg-325 mg tablet take 1 tablet [...] Diagnoses Date Provider Providers Copied on Encounter [facility], [id number] [facility], [place], [place], [id number], [place] tel:[phone] [facility] No Information 6 Pfannenstiel Rendi. [address] [place], [address], [place]. tel:[phone] Referring Provider: Sparkle Galicia L, [address] [place], [address]. tel:[phone] [facility], [id number] [place], [place], [id number], [place] tel:[phone] [facility] No Information 6 Pfannenstiel Rendi. [address] [place], [address], [place]. tel:[phone] [facility], [id number], [id number], [place] tel:[phone] [facility] No Information 6 Pf[address]enstiel Rendi. [address] [place], [address], [place]. tel:[phone] Referring Provider: Sparkle Galicia L, [address] [place], [address]. tel:[phone] [facility], [id number]- [place], [place], [id number], [place] tel:[phone] [facility] No Information 6 Pfannenstiel Rendi. [address] [place], [address], [place]. tel:[phone] Referring Provider: Sparkle Galicia L, [address] [place], [address]. tel:[phone] Family History Family Member Type Diagnosis Age At Onset Son Problem (finding) Alive and well Payers Payer name Insurance type Covered republican ID Authoriza tiabhinav(s) No Information Social History [...]
== END 2024-07-10 08:39 | disposition home or self-care (01) ==
PROVIDERS: PCP Internal Medicine; Visit Provider Internal Medicine Cardiovascular Disease
DX: E78.5 Hyperlipidemia, unspecified (principal)
CPT/HCPCS: 36415; 80061

== ENCOUNTER 2024-07-20 08:38 | Outpatient (CLI) | payer OTHER, SELFPAY ==
--- OUTSIDE RECORDS SUMMARY | 2024-07-20 08:45 | XMS_ITS | Clinical Summary ---
Author Organization [facility] Address [address] [place] [address] Care Team Providers Care Folder Operator Name Role Phone Juan Diego Caraballo MD Primary Care Provider [phone] Encounters Date Type Department Care Team Description 06/04/2024 6:36 PM CDT - 06/04/2024 11:59 PM CDT Hospital Encounter [facility] [address] [place] [address] Emerita Lyons NP Discharge Disposition: Home or Self Care (Routine Discharge) 06/04/2024 Orders Only [facility] [address] [place] [address] Emerita Lyons NP from Last 3 Months [...] 30 to 64) Every 3 Years 1979 Colorectal Cancer Screening Colonoscopy (10 Years) 1979 Annual Physical 07/10/1982 Hepatitis C 07/10/1997 [...] NEGATIVE NEGATIVE 06/05/2024 12:[address] [facility] STOOL SPECIMEN / Unknown 06/04/2024 6:04 PM CDT Emerita Lyons NP MICROBIOLOGY - GENERAL ORDER AMMY Final Result [facility] [address] [place] [address], [id number] from Last 3 Months Insurance [facility] Care Teams Folder Operator Relationship Specialty Start Date End Date Juan Diego Caraballo MD [address] [place] [address] PCP - General INTERNAL MEDICINE 06/04/24
--- OUTSIDE RECORDS SUMMARY | 2024-07-20 08:46 | XMS_ITS | Data Portability ---
Author Organization [facility] [place] Address [address] [place] [address] Care Team Providers Care Saw Boss Name Role Phone SHANDATEJINDER ABARCA Primary Care Provider Assessment No assessment recorded. Plan of Treatment Reminders Order Date Submit Date Provider Last Modified By Organization Details Last Modified Time Details Appointments None recorded. Lab None recorded. Referral None recorded. Procedures None recorded. Surgeries total hysterectom y, laparoscopi c, with bilateral salpingecto my (SURG) 2022 023 [facility], [facility] [address], [place], [address], 10:59:25 Imaging None recorded. Medication Orders None [...] WITH BILATERAL SALPINGECTOMY (SURG) completed Alesha Torres [facility] 10/17/2022 10:49:48 08/16/19 23 Date of Last Pap Smear completed [facility] 09/14/2022 12:11:28 07/28/19 23 Date of Last Mammogram completed [facility] 09/14/2022 12:42:50 03/11/19 22 repair of stress incontinence by suprapubic sling completed [facility] 10/08/2022 12:04:02 03/11/19 12 Endometrial Ablation completed [facility] 09/14/2022 12:40:49 03/11/19 11 Endometrial Ablation completed [facility] 09/14/2022 12:40:46 06/24/19 10 section completed [facility] 10/08/2022 12:03:17 03/11/19 10 Tubal Ligation completed [facility] 10/08/2022 12:02:44 07/24/19 08 section completed [facility] 10/08/2022 12:03:11 03/11/19 07 Ovarian Cystectomy completed [facility] 10/08/2022 12:02:31 09/02/19 04 section completed [facility] 10/08/2022 12:03:04 03/11/18 91 excision of sebaceous cyst of head or neck completed [facility] 10/08/2022 12:02:37 Tubal Ligation completed [facility] 10/22/2022 12:16:33 Endometrial Ablation completed [facility] 10/22/2022 12:16:33 Ovarian Cystectomy completed [facility] 10/22/2022 12:16:33 Imaging Results [...] Not Available Not Available No t Available [facility] Verapamil HCl CR 240 mg tablet,exte [...] Available Not Available No t Available Acid Desk Editor (famotidine ) active Not Available Not Available [...] Updated DateTime 09/14/2022 160.02 cm 38.3 kg/m2 17170.95 g 137 mm[Hg] 82 mm[Hg] [facility] 3 12:09:49 Date Recorded Body height Body mass index (BMI) Body weight Systolic blood pressure Diastolic blood pressure Provider Name and Address Organization Details Last Updated DateTime 10/08/2022 160.02 cm 38.4 kg/m2 32155.54 g 122 mm[Hg] 77 mm[Hg] Chiqui Ric [facility] 3 11:59:01 Date Recorded Body height Body mass index (BMI) Body weight Systolic blood pressure Diastolic blood pressure Provider Name and Address Organization Details Last Updated DateTime 10/22/2022 160.02 cm 38.1 kg/m2 34634.36 g 133 mm[Hg] 85 mm[Hg] [facility] 3 12:16:26 Date Recorded Body height Body mass index (BMI) Body weight Systolic blood pressure Diastolic blood pressure Provider Name and Address Organization Details Last Updated DateTime 12/27/2022 160.02 cm 38.3 kg/m2 77617.95 g 129 mm[Hg] 84 mm[Hg] [facility] 3 12:51:18 Social History Question Answer Notes LastModified by Organizat ion Details LastModified Time Tobacco Smoking Status Current Every Day Smoker [facility] 12/27/2022 11:51:16 How Many Years Have You Consumed Alcohol? 27 Information not available 09/14/2022 Are You Blind Or Do You Have Difficulty Seeing? No Information n ot available 09/14/2022 What Is Your Level Of Caffeine Consumption? Heavy Information not available 09/14/2022 How Much Tobacco Do You Chew? None Information not available 09/14/2022 In The 14 Days Before Symptom Onset, Have You Had Close Contact With A Laboratory-confirm ed COVID-19 While That Case Was Ill? No Information n ot available 09/14/2022 In The 14 Days Before [...] Of Diet Are You Following? REGULAR Information n ot available 09/14/2022 What Is The Highest Grade Or Level Of School You Have Completed Or The Highest Degree You Have Received? [id number] Information not available 09/14/2022 Are There Any [...] PPD Information not available 09/14/2022 Do You Use Sunscreen Routinely? No Information not available 09/14/2022 How Many Years Have You Smoked Tobacco? 32 Information not available 09/14/2022 Have You Used IV Drugs? No Information not available 09/14/2022 Sex: Unknown Functional Status Question Answer Note LastModified by Organizat ion Details LastModified Time Do you use any illicit or recreational drugs? No Information not available 09/14/2022 What is your level of alcohol consumption? Occasional Information not available 09/14/2022 Do you have difficulty walking or climbing stairs? No [email or web address] Information not available 12/27/2022 Are you able to walk? YESWOREST Information not available 09/14/2022 Are you able to care for yourself? 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 No [email or web address] Information not available 12/27/2022 What is your exercise level? Moderate Information not available 09/14/2022 Mental Status Question Answer Note LastModified by Organization D etails LastModified Time Do you feel stressed (tense, restless, nervous, or anxious, or unable to sleep at night)? [id number] Information not available 09/14/2022 Family History Relationship Description Onset Age of [...] ) Y Other N Blood Transfusion N Breast Cancer N Drug/Latex Allergies/Reactions N Dermatologic Disorders N Lung Disease Y Defects or Inherited Disease N Breast Problem N Gestational Diabetes N Hematologic disorders N Anesthesia Complications N History of STI N Deep Vein Thrombosis N Polycystic ovary syndrome N Anxiety Disorder Y Autoimmune disease N Arthritis Y Polyps N Infertility N Acid Reflux (GERD) Y History of abnormal pap Y Cancer N Varicosities N Stroke N Neurologic/Epilepsy Y Endometriosis N High Cholesterol N Fibromyalgia N Headaches Y Kidney Disease N Heart Problems Y Thyroid Problems N Kidney or Bladder Problems Y GI Problems N Eating Disorder N Anemia [...] SNOMED-CT Code Diagnosis ICD10 Code Diagnosis Note [id number] Shade Santacruz MD [place] [address] [address] 09/14/2022 11:38:18 09/14/2022 14:15:00 Uterine leiomyoma 16014108 D25.9 Patient is a 42-year-ol d female [...] Made a decision to perform surgery. Dyspareunia [id number] N94 .10 [id number] Shade Santacruz MD [place] [address] [address] 10/08/2022 10:54:05 10/08/2022 12:26:54 Uterine leiomyoma [id number] D25.9 this patient is a 42-year-ol d female with symptomati c uterine fibroids. We have agreed from total laparoscop ic hysterecto my and bilateral salpingect new. She understand s the risks, benefits, and alternativ es. She has completed the informed consent process and is ready to proceed. [id number] Shade Santacruz MD [place] [address] [address] 10/18/2022 09:59:42 10/18/2022 10:01:58 [id number] Shade Santacruz MD [place] [address] [address] 10/22/2022 11:32:35 10/22/2022 12:42:19 Postoperative care [id number] Z48.89 patient is a 42-year-ol d female presents for postop follow-up. She is 1 week postop from a total laparoscop ic hysterecto my bilateral salpingect new. She has no complaints . Her incisions are clean dry and intact. She is recovering normally. She will follow-up as needed. [id number] Shade Santacruz MD [place] [address] [address] 12/27/2022 11:51:02 12/27/2022 13:34:01 Dyspareunia [id number] N94.10 42-year-ol d female who presents for [...] [place] Member ID Guarantor Name 09/14/2022 1 [facility] ON OR AFTER 09/08/20 (MEDICAID REPLACEMENT - HMO) Paola Elizabeth [id number] Paola [facility] [place] 10/08/2022 1 [facility] - [facility] ON OR AFTER 20 (MEDICAID REPLACEMENT - HMO) Paola Cordobagel [id number] Paola [facility] [place] 10/16/2022 1 [facility] - [facility] ON OR AFTER 20 (MEDICAID REPLACEMENT - HMO) Paola Cordobagel [id number] Paola [facility] [place] 10/22/2022 1 [facility] - [facility] ON OR AFTER 20 (MEDICAID REPLACEMENT - HMO) Paola Elizabeth [id number] Paola [facility] [place] 12/27/2022 1 [facility] ON OR AFTER 09/08/20 (MEDICAID REPLACEMENT - HMO) Paola Cordobagel [id number] [place] [facility] [place] Notes Date Note Type Note [...] pain. Shade Santacruz MD [address], [place], [address], [facility] 09/14/2022 13:09:18 10/08/2022 text/html this patient [...] infection. Shade Santacruz MD [address], [place], [address], [facility] 10/08/2022 12:20:09 10/22/2022 text/html female Patient presents for postop follow-up. She is 1 week postop from a total laparoscopic hysterectomy bilateral salpingectomy. She has no complaints. Her incisions are clean dry and intact. She is recovering normally. She will follow-up as needed. .b Shade Santacruz MD [address], [place], [address], [facility] 10/22/2022 12:41:32 12/27/2022 text/html 42-year-old fema [...] floor therapy. We spent over 20 minutes [id number]. More than 50% was couneg. Shade Santacruz MD [address], [place], [address], [facility] 12/27/2022 13:18:46 OBGyn Episode Ob Episode Information Episode Created Date Number of Fetuses Patient Bloodtype Patient rh Status Prepregnancy Weight lbs Domestic Partner Domestic Partner Phone Father Name [employer] Status 09/15/19 23 1 CLOSED Fetus Data First Name Last Name Admitted to NICU Weight (g) Sex Living Outcome Pediatric Complications Fetus ID Race Codes Race Delivery Type 3826.95 5704 M Full Term [id number] Primary Brandon Calculation Initial Brandon Date Initial [...] Domestic Partner Domestic Partner Phone Father Name [employer] Status 09/15/19 23 1 CLOSED Fetus Data [...] Domestic Partner Domestic Partner Phone Father Name [employer] Status 09/15/19 23 1 CLOSED Fetus Data [...] Domestic Partner Domestic Partner Phone Father Name [employer] Status 09/15/19 23 1 CLOSED Fetus Data [...] Domestic Partner Domestic Partner Phone Father Name [employer] Status 10/09/19 23 1 CLOSED Fetus Data First Name Last Name Admitted to NICU Weight (g) Sex Living Outcome Pediatric Complications Fetus ID Race Codes Race Delivery Type 2919.77 1704 M Full Term [id number] Vaginal Delivery Brandon Calculation Initial Brandon Date [...]
[2024-07-20 09:12] LABS: Basophils Absolute Auto 0.04 K/mm3 (0.00-0.10); Basophils Percent Auto 0.6 % (0.0-1.0); Eosinophils Absolute Auto 0.11 K/mm3 (0.02-0.50); Eosinophils Percent Auto 1.5 % (1.0-6.0); Hematocrit 40.5 % (35.0-49.0); Immature Granulocyte Absolute 0.03 K/mm3 (0.00-0.00); Immature Granulocyte Percent A 0.4 % (0.0-0.0); Lymphocytes Absolute Auto 1.63 K/mm3 (1.10-4.50); Lymphocytes Percent Auto 22.5 % (18.0-42.0); Mean Corpuscular HGB Conc 32.1 g/dL (32-36); Mean Corpuscular Hemoglobin 33.8 pg (27.0-31.0); Mean Corpuscular Volume 105.2 fL (78.0-102.0); Mean Platelet Volume 9.2 fl (9.2-11.8); Monocytes Absolute Auto 0.56 K/mm3 (0.10-0.90); Monocytes Percent Auto 7.7 % (2.0-11.0); Neutrophils Absolute Auto 4.86 K/mm3 (1.70-7.20); Neutrophils Percent Auto 67.3 % (50.0-70.0); Platelet Count Result 155 K/mm3 (150-420); Red Blood Count 3.85 M/mm3 (4.20-5.40); Red Cell Distribution Width 15.8 % (11.6-14.4); White Blood Count 7.2 K/mm3 (4.8-10.8)
[2024-07-20 11:01] LABS: Alanine Aminotransferase 28 U/L (6-35); Albumin Level 3.6 g/dL (3.5-5.1); Alkaline Phosphatase 88 U/L (38-126); Anion Gap 3 mmol/L (4-12); Aspartate Amino Transferase 26 U/L (14-36); Bilirubin,Total 0.5 mg/dL (0.2-1.3); Blood Urea Nitrogen 10 mg/dL (7-17); Calcium 8.6 mg/dL (8.4-10.2); Carbon Dioxide 25 mmol/L (22-30); Chloride 110 mmol/L (98-107); Estimated Glomerular Filt Rate > 60; Glucose 102 mg/dL (65-110); Osmolality Calculated 285 mOsm/kg (285-295); Potassium 3.9 mmol/L (3.4-5.0); Sodium 138 mmol/L (137-145); Total Protein 5.9 g/dL (6.3-8.2)
== END 2024-07-20 08:39 | disposition home or self-care (01) ==
LOC: CHSLAB 08:40
PROVIDERS: PCP Internal Medicine; Visit Provider Internal Medicine
DX: D64.9 Anemia, unspecified (principal); D69.6 Thrombocytopenia, unspecified; K76.0 Fatty (change of) liver, not elsewhere classified
CPT/HCPCS: 36415; 80053; 85025

== ENCOUNTER 2024-08-13 10:21 | Outpatient (CLI) | payer OTHER, SELFPAY ==
--- NOTE | ~2024-08-13 | MM_ITS ---
EXAMINATION: MM screening sahne BI w nadja HISTORY: Screening mammogram TECHNIQUE: Craniocaudal and mediolateral oblique 3-D tomosynthesis images were obtained and synthetic 2-D images were generated. CAD analysis was submitted and interpreted. COMPARISON: 08/12/2023 and 07/27/2022 BREAST PARENCHYMAL COMPOSITION: The breasts are almost entirely fatty. FINDINGS: There is no evidence of suspicious mass, calcification, or architectural distortion to sug gest malignancy in either breast. There has been no suspicious interval change. IMPRESSION: 1. No mammographic evidence of malignancy. 2. Recommend routine screening mammography in one year. BI-RADS Category 1: Negative Reviewed, dictated and finalized at location B.
--- NOTE | ~2024-08-13 | MR_ITS ---
MRI of the lumbar spine Clinical History: Radiculopathy Technique: Axial T2-weighted images, and sagittal T1-weighted, T2-weighted, and T2 fat-sat images wer e acquired. Findings: There is no fracture or subluxation of the lumbar spine. Vertebral bodies maintain normal h eight and alignment. No bone marrow signal abnormality seen. At L1-L2 and L2-L3, there is no disc bulge region. No spinal canal stenosis or neural foraminal narro wing at these levels. At L3-L4, there is minimal disc bulge. No spinal canal stenosis or neural foraminal narrowing. At L4-L5, there is minimal disc bulge with moderate facet arthropathy. No central canal stenosis or d efinite neural foraminal narrowing. At L5-S1, there is moderate to advanced degenerative disc narrowing. There is mild disc bulge with mo derate facet arthropathy. No central canal stenosis. There is mild to moderate left neural foraminal narrowing. Right neural foramen preserved. Paravertebral soft tissues are unremarkable. Impression: Mild degenerative spondylosis overall, as detailed above. Reviewed, dictated and finalized at location M. Impression: Mild degenerative spondylosis overall, as detailed above.
--- OUTSIDE RECORDS SUMMARY | 2024-08-13 11:24 | XMS_ITS | Data Portability ---
Author Organization 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 Plan of Treatment Reminders Order Date Submit Date Provider Last Modified By Organization Details Last Modified Time Details Appointments None recorded. Lab hbcab (hepatitis B core Ab) igm, serum 2024 025 [facility] (Lab), [address] [place], [address], 17:54:32 HBsAg (hepatitis B surface Ag), serum 2024 025 [facility] (Lab), [address] [place], [address], 5 17:54:31 hepatitis C virus Ab, serum 2024 025 [facility] (Lab), [address] [place], [address], 5 17:54:31 HIV 1+2 AB + HIV 1 p24 Ag, qualitative immunoassay , serum 2024 025 [facility] (Lab), [address] [place], [address], 5 17:54:31 RPR (rapid plasma reagin), serum 2024 025 [facility] (Lab), [address], [place], [address], 5 17:54:32 CT + NG + TV, RNA, unspecified specimen 2024 025 [facility] (Lab), [address], [place], [address], 5 17:36:12 Referral None recorded. Procedures None recorded. Surgeries None recorded. Imaging MAMMO, screening, digital, bilateral 2024 025 [email or web address] [facility], [address], [place] [address], [place], [address], 14:14:33 Medication Orders None recorded. Patient TargetsNo targets recorded. Patient InstructionsNo instructions recorded. Reason for Referral None Reported. Results Created Date Observation Date Name Description Value Unit Range Abnormal Flag Note LastModifiedBy Organization Detail LastModifiedTime Result Notes None recorded. Procedures Surgical History Date Name Laterality Status Provider Name and Address Organization Details Recorded Time 03/11/19 24 procedure on wrist completed Sharon Dow [facility] 08/11/2024 12:20:43 10/17/19 23 TOTAL HYSTERECTOMY, LAPAROSCOPIC, WITH BILATERAL SALPINGECTOMY (SURG) completed Alesha Torres [facility] 10/17/2022 10:49:48 08/16/19 23 Date of Last Pap Smear completed [facility] 09/14/2022 12:11:28 07/28/19 23 Date of Last Mammogram completed [facility] 09/14/2022 12:42:50 03/11/19 22 repair of stress incontinence by suprapubic sling completed Chiqui Larios [facility] 10/08/2022 12:04:02 03/11/19 12 Endometrial Ablation completed [facility] 09/14/2022 12:40:49 03/11/19 11 Endometrial Ablation completed [facility] 09/14/2022 12:40:46 06/24/19 10 section completed [facility] 10/08/2022 12:03:17 03/11/19 10 Tubal Ligation completed [facility] 10/08/2022 12:02:44 07/24/19 08 section completed [facility] 10/08/2022 12:03:11 03/11/19 07 Ovarian Cystectomy completed [facility] 10/08/2022 12:02:31 09/02/19 04 section completed [facility] 10/08/2022 12:03:04 03/11/18 91 excision of sebaceous cyst of head or neck completed [facility] 10/08/2022 12:02:37 Tubal Ligation completed [facility] 10/22/2022 12:16:33 Endometrial Ablation completed [facility] 10/22/2022 12:16:33 Ovarian Cystectomy completed [facility] 10/22/2022 12:16:33 Imaging Results None recorded. [...] Available famotidine 40 mg tablet TAKE 1 TABLET BY MOUTH EVERY NIGHT AT BEDTIME active Not Available Not Available [...] tablet TAKE 1 TABLET BY MOUTH EVERY NIGHT AT BEDTIME active Not Available Not Available No t Available [facility] Verapamil HCl CR 240 mg tablet,exte nded release active Not Available Not Available Not Available acetaminoph en 300 mg-codeine 30 mg tablet active Not Available Not Available Not Available sulfamethox azole 800 mg-trimetho prim 160 mg tablet active Not Available Not Available Not Available meloxicam 7.5 mg tablet TAKE 1 TABLET BY MOUTH TWICE DAILY WITH FOOD active Not Available Not Available No t Available oxycodone-a cetaminophe n 5 mg-325 mg tablet TAKE 1 TABLET BY MOUTH EVERY 4 HOURS NEEDED FOR PAIN active Not Available Not Available No t Available meclizine 25 mg tablet TAKE 1 TO 2 TABLETS BY MOUTH THREE TIMES DAILY NEEDED active Not Available Not Available No t Available doxycycline monohydrate 100 mg capsule 08/11 completed Not Available Not Available Not Available pantoprazol [...] diclofenac sodium 75 mg tablet,betsey yed release 08/11 completed Not Available Not Available Not Available verapamil ER (SR) 240 mg tablet,exte nded release TAKE 1 TABLET BY MOUTH EVERY NIGHT AT BEDTIME active Not Available Not Available No t Available montelukast 10 mg tablet TAKE 1 TABLET BY MOUTH EVERY EVENING active Not Available Not Available No t Available diclofenac sodium 50 mg tablet,betsey yed release TAKE 1 TABLET BY MOUTH THREE TIMES A DAY NEEDED active Not Available Not Available No t Available albuterol 90 mcg/actuati on aerosol inhaler 08/11 completed Not Available Not Available Not Available ergocalcife rol (vitamin D2) 1,250 mcg (50,000 unit) capsule active Not Available Not Available Not Available methylpredn isolone 4 mg tablets in a dose pack 08/11 completed Not Available Not Available Not Available albuterol sulfate HFA 90 mcg/actuati on aerosol inhaler INHALE 1 TO 2 PUFFS BY MOUTH EVERY 4 HOURS NEEDED [...] Available Not Available No t Available [employer] (famotidine ) active Not Available Not Available Not Available Spiriva Respimat 2.5 mcg/actuati on solution for inhalation INHALE 2 PUFFS BY MOUTH DAILY AT THE SAME TIME EACH DAY active Not Available Not Available No t Available Stiolto Respimat 2.5 mcg-2.5 mcg/actuati on solution for inhalation INHALE 2 PUFFS BY MOUTH EVERY 24 HOURS active Not Available Not Available No t [...] and Address Organization Details Last Updated DateTime 08/11/2024 160.02 cm 41.3 kg/m2 109993.0 2 g 130 mm[Hg] 77 mm[Hg] Sharon Dow [facility] 5 12:18:22 Date Recorded Body height Body mass index (BMI) Body weight Systolic blood pressure Diastolic blood pressure Provider Name and Address Organization Details Last Updated DateTime 10/08/2022 160.02 cm 38.4 kg/m2 65135.54 g 122 mm[Hg] 77 mm[Hg] Chiqui Ric [facility] 3 11:59:01 Date Recorded Body height Body mass index (BMI) Body weight Systolic blood pressure Diastolic blood pressure Provider Name and Address Organization Details Last Updated DateTime 10/22/2022 160.02 cm 38.1 kg/m2 60012.36 g 133 mm[Hg] 85 mm[Hg] [facility] 3 12:16:26 Date Recorded Body height Body mass index (BMI) Body weight Systolic blood pressure Diastolic blood pressure Provider Name and Address Organization Details Last Updated DateTime 12/27/2022 160.02 cm 38.3 kg/m2 54454.95 g 129 mm[Hg] 84 mm[Hg] [facility] 3 12:51:18 Social History Question Answer Notes LastModified by Organizat ion Details LastModified Time Tobacco Smoking Status Current Every Day Smoker [facility] 12/27/2022 11:51:16 How Many Years Have [...] Or The Highest Degree You Have Received? [id number] Information not available 09/14/2022 Are There Any [...] IV Drugs? No Information not available 09/14/2022 Do You Have Difficulty Walking Or Climbing Stairs? No [email or web address] Information not available 12/27/2022 Sex: Unknown Functional Status Question Answer Note LastModified by Organizat ion Details LastModified Time Do you use any illicit or recreational drugs? No Information not available 09/14/2022 What is your level of alcohol consumption? Occasional Information not available 09/14/2022 Are you able to walk? YESWOREST Information not available 09/14/2022 Are you able to care for yourself? 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 No [email or web address] Information not available 12/27/2022 What is your exercise level? Moderate Information not available 09/14/2022 Mental Status Question Answer Note LastModified by Organization D etails LastModified Time Do you feel stressed (tense, restless, nervous, or anxious, or unable to sleep at night)? [id number] Information not available 09/14/2022 Family History Relationship [...] Allergies (Food, seasonal, environmental ) Y Other Y Breast Cancer N Drug/Latex Allergies/Reactions N Blood [...] Hysterectom y Age at First Child 20 Date of Last Colonoscopy Sexually Active? Y Menses Monthly N Date of DEXA bone scan Age of [...] SNOMED-CT Code Diagnosis ICD10 Code Diagnosis Note [id number] Shade Santacruz MD [facility] [address] [address] 09/14/2022 11:38:18 09/14/2022 14:15:00 Uterine leiomyoma 38705841 D25.9 Patient is a 42-year-ol d female [...] Made a decision to perform surgery. Dyspareunia 26080296 N94 .10 [id number] Shade Santacruz MD [facility] [address] [address] 10/08/2022 10:54:05 10/08/2022 12:26:54 Uterine leiomyoma 31490007 D25.9 this patient is a 42-year-ol d female with symptomati c uterine fibroids. We have agreed from total laparoscop ic hysterecto my and bilateral salpingect new. She understand s the risks, benefits, and alternativ es. She has completed the informed consent process and is ready to proceed. [id number] Shade Santacruz MD [facility] [address],[place] [address] 10/18/2022 09:59:42 10/18/2022 10:01:58 [id number] Shade Santacruz MD [facility] [address],[place] [address] 10/22/2022 11:32:35 10/22/2022 12:42:19 Postoperative care 131737159 Z48.89 patient is a 42-year-ol d female presents for postop follow-up. She is 1 week postop from a total laparoscop ic hysterecto my bilateral salpingect new. She has no complaints . Her incisions are clean dry and intact. She is recovering normally. She will follow-up as needed. [id number] Shade Santacruz MD [facility] [address],[place] [address] 12/27/2022 11:51:02 12/27/2022 13:34:01 Dyspareunia 41919755 N94.10 42-year-ol d female who presents for [...] face-to-fa ce. More than 50% was couneg. [id number] MILDRED Gibson [facility] [address] [address] 08/11/2024 11:19:21 08/11/2024 14:14:33 Gynecologic examination [id number] Z01.419 WWEPap - Not indicated todaySTI screen - gc/ct/tric h urine testing sentHIV/He p B&C/Syphil is testing ordered per pt requestMam mogram - order givenColon cancer screening - UTDRoutine labs - UTD/PCPRTC in 1 yr or sooner if needed Suggested Calcium with Vitamin D daily. Patient advised to get an annual flu shot in the fall and she could obtain at local pharmacy. Also to obtain TDap vaccinatio n if you have not had one in the last 10 years. Recommend yearly mammograms . Encouraged monthly self breast exams. Encourage safe sexual practices, to use condoms and limit partners if not already in a monogamous relationsh ip. Engage in regular exercise. Avoid tobacco and illicit drugs. This lifestyle behavior pattern will lead to less health conditions and longer life span. If BMI greater than 25 dietary consult advised. All questions have been answered. Screening mammography 24 535118 Z12.31 Venereal d isease screening 007211773 Z11.3 Sexually t ransmitted infectious disease 4293063 A64 Health Concerns Section Related Observation LastModified by Organization Detai ls LastModified Time None Recorded Concern Status LastModified by Organization Details LastModified Time None Recorded Advance Directives Directive None Recorded Payers Encounter Date Sequence Insurance Name Policy Number Policy Everett Covered Member ID Everett Member ID Guarantor Name 10/08/2022 1 [facility] - DOS ON OR AFTER 20 (MEDICAID REPLACEMENT - HMO) Paola L Portwood [id number] Paola L Portwood 10/16/2022 1 [facility] - DOS ON OR AFTER 20 (MEDICAID REPLACEMENT - HMO) Paola L Portwood [id number] Paola Tam Portwood 10/22/2022 1 [facility] - DOS ON OR AFTER 20 (MEDICAID REPLACEMENT - HMO) Paola L Portwood [id number] Paola Tam Portwood 12/27/2022 1 [facility] - DOS ON OR AFTER 20 (MEDICAID REPLACEMENT - HMO) Paola L Portwood [id number] Paola L Portwood 08/11/2024 1 [facility] - DOS ON OR AFTER 20 (MEDICAID REPLACEMENT - HMO) Paola Green [id number] Paola Green Notes Date Note Type Note Provider Name and Address Organization Details Recorded Time 10/08/2022 text/html this patient is 42-year-old female [...] infection. Shade Santacruz MD [address], [place], [address], [facility] 10/08/2022 12:20:09 10/22/2022 text/html female Patient presents for postop follow-up. She is 1 week postop from a total laparoscopic hysterectomy bilateral salpingectomy. She has no complaints. Her incisions are clean dry and intact. She is recovering normally. She will follow-up as needed. .b Shade Santacruz MD [address], [place], [address], [facility] 10/22/2022 12:41:32 12/27/2022 text/html 42-year-old fema [...] floor therapy. We spent over 20 minutes [id number]. More than 50% was couneg. Shade Santacruz MD [address], [place], [address], [facility] 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.Menopausal Symptoms:no menopausal symptoms; normal vaginal lubrication Vaginal Bleeding:history of menopause having occurred; no history of post menopausal bleeding Urinary Symptoms:no hematuria; no incontinence; no nocturia; no urinary frequency Vulva:no genital lesion; no vulvar atrophy Vagina:normal vaginal discharge; no vaginal atrophy Breast:no breast lump; no nipple discharge; no breast pain Sexual Complaints:no sexual complaints Psychological Symptoms:no depression; no anxiety Preventive Measures:encourage regular mammograms starting age 40; encourage self breast examination; encourage regular exercise; encourage no tobacco useNotes:44yoh/o TLH for fibroidslast pap 2022 wnlmammogram - has appt scheduledcolonoscopy UTD 2023would like STI testing today MILDRED Gibson [address], [place], [address], [facility] 08/11/2024 13:54:10 OBGyn Episode Ob Episode Information Episode Created Date Number of Fetuses Patient Bloodtype Patient rh Status Prepregnancy Weight lbs Domestic Partner Domestic Partner Phone Father Name Carbon Capture Power Plant Manager Status 09/15/19 23 1 CLOSED Fetus Data First Name Last Name Admitted to NICU Weight (g) Sex Living Outcome Pediatric Complications Fetus ID Race Codes Race Delivery Type 3826.95 5704 M Full Term [id number] Primary Brandon Calculation Initial Brandon Date Initial [...] Domestic Partner Domestic Partner Phone Father Name Carbon Capture Power Plant Manager Status 09/15/19 23 1 CLOSED Fetus Data [...] Domestic Partner Domestic Partner Phone Father Name Carbon Capture Power Plant Manager Status 09/15/19 1 CLOSED Fetus Data First Name Last [...] Domestic Partner Domestic Partner Phone Father Name Carbon Capture Power Plant Manager Status 09/15/19 23 1 CLOSED Fetus Data [...] Domestic Partner Domestic Partner Phone Father Name Carbon Capture Power Plant Manager Status 10/09/19 23 1 CLOSED Fetus Data [...]
--- OUTSIDE RECORDS SUMMARY | 2024-08-13 11:24 | XMS_ITS | Continuity of Care Document ---
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 Name Role Phone Pfannenstieyasmin DDS, Rendi Unavailable Unavaila ble Allergies, Adverse Reactions, Alerts Substance Reaction Status Criticality No Known Allergies Active No Inform ation Medications Medication Instructions Dosage Effective Dates (start - stop) Status Comments amoxicillin 500 mg capsule take 1 capsule by ORAL route every 8 hours for dental infection 500 MG - Active [place] 7.5 mg-325 mg tablet take 1 tablet [...] infection 300 MG - No Longer Active [place] 7.5 mg-325 mg tablet take 1 tablet [...] Diagnoses Date Provider Providers Copied on Encounter [facility], [id number] [facility], [place], [place], [id number], [place] tel:[phone] [facility] No Information 6 Pfannenst[address] Rendi. [address] [place], [address], [place]. tel:[phone] Referring Provider: Sparkle Galicia L, [address] [place], [address]. tel:[phone] [facility], [id number]- [place], [place], [id number], [place] tel:[phone] [facility] No Information 6 Pfannenstiel Rendi. [address] [place], [address], [place]. tel:[phone] [facility], [id number] [place], [id number], [place] tel:[phone] [facility] No Information 6 Pf[address]enstiel Rendi. [address] [place], [address], [place]. tel:[phone] Referring Provider: Sparkle Galicia L, [address] [place], [address]. tel:[phone] [facility], [id number] [place], [id number], [place] tel:[phone] [facility] No Information 6 Pfannenstiel Rendi. [address] [place], [address], [place]. tel:[phone] Referring Provider: Sparkle Galicia L, [address] [place], [address]. tel:[phone] Family History Family Member Type Diagnosis Age At Onset Son Problem (finding) Alive and well Payers Payer name Insurance type Covered alliance party ID Authoriza tiabhinav(s) No Information Social [...]
== END 2024-08-13 10:22 | disposition home or self-care (01) ==
PROVIDERS: PCP Internal Medicine
DX: Z12.31 Encounter for screening mammogram for malignant neoplasm of breast (principal); M43.06 Spondylolysis, lumbar region
CPT/HCPCS: 72148; 77063; 77067

== ENCOUNTER 2024-09-01 13:41 | Outpatient (CLI) | payer OTHER, SELFPAY ==
--- NOTE | 2024-09-01 13:47 | ECG_ITS ---
Test Date: 2024-09-01 13:53:07 Measurements Intervals [place] Rate: 81 P: 61 NM: 141 QRS: 49 QRSD: 98 T: 48 QT: 370 QTc: 431 Interpretive Statements SINUS RHYTHM INFERIOR INFARCT, AGE INDETERMINATE ABNORMAL ECG No previous ECG available for comparison Electronically Signed On 09-01-2024 14:32:31 CDT by Lino Salter D.O.
== END 2024-09-01 13:42 | disposition home or self-care (01) ==
PROVIDERS: PCP Internal Medicine; Visit Provider Anesthesiology
DX: I10 Essential (primary) hypertension (principal); F17.210 Nicotine dependence, cigarettes, uncomplicated; R94.31 Abnormal electrocardiogram [ECG] [EKG]
CPT/HCPCS: 93005

== ENCOUNTER 2024-09-04 00:11 | Day surgery (SDC) | payer OTHER, SELFPAY ==
[2024-09-01 11:00] VITALS: BMI 37.8
--- NOTE | 2024-09-01 11:00 | PC.NURSE ---
Report to the Outpatient Waiting Room, entrance under the green pavilion located off [facility], at time _0930_ on date _[id number]_. Planned Procedure Time: _1130_.? Time changes happen often and if your time is changed the preop area will call you the afternoon before. - You and your visitor will be asked to self-screen and do not enter if you have any COVID symptoms. Please call surgeon if you need to reschedule. - A mask is optional within the hospital at this time. Patients may have clear liquids (water, carbonated beverages, clear teas, apple juice) until 3 hours prior to surgery with a maximum of 20 ounces. - No food from midnight until time of surgery and no smoking, or chewing tobacco (or any form of nicotine). No chewing gum, candy or mints. Take only the following medications with a SIP of water on the morning of surgery: ___Verapamil, Flonase and inhalers.___ DO NOT STOP ANY OF YOUR OTHER PRESCRIPTION MEDICATIONS PRIOR TO SURGERY EXCEPT THE FOLLOWING Hold all vitamins and supplements for 3 days per anesthesiologist. Stop now. Medications to discontinue per physician __Meloxicam stop now.____ Date to take last dose____ Please no make-up, nail bulgarian, hairspray, perfume, deodorant, or body powder the day of surgery.? No jewelry (including any body piercings) or valuables the day of surgery, leave them at home.? Please take a shower or bath the night before, or the morning of, surgery with an antibacterial soap.? Wear comfortable, loose fitting clothing.? - Jewelry must be removed prior to entering the operating room.? Rings and piercings that are not removed may be cut off. - The hospital will not accept responsibility for valuables.? - Please leave all valuables, including medications, at home the day of surgery. If you are going home after surgery, a licensed wagon driver salesperson must drive you home.? - NO public transportation without another adult if you receive anesthesia. - We recommend that an adult stay with you for 24 hours following discharge. - We also recommend that you do not drive, make important decision, drink alcoholic beverages, or take any drugs that were not prescribed by your health care provider for at least 24 hours after your discharge time. Follow any additional instructions given to you from your surgeon. Telephone instructions given to __Tonya__and asked if any additional questions and then verbalized understanding. Patient advised to call surgeon office or pre surgery nurse liaison [phone] if any additional questions.
--- NOTE | 2024-09-03 16:53 | PM.IMHP ---
H&P: HPI History of Present Illness Date/Time: 09/03/24 16:53 Chief Complaint: nasal congestion Review of Systems Review of Systems: All systems reviewed & are unremarkable except as noted in HPI and below Constitutional: Constitutional: Reports as per HPI ENT: Reports as per HPI Respiratory: Respiratory: Reports as per HPI Gastrointestinal: Gastrointestinal: Reports as per HPI [facility] Past Medical History Medical History (Updated 07/06/24 @ 13:20 by Lino Salter DO) Nasal congestion Chronic ethmoidal sinusitis Hypertrophy of nasal turbinates Deviated nasal septum ADAM (obstructive sleep apnea) Odynophagia BMI 37.0-37.9, adult Seizure age 10 after cyst removed from side of head Fibroid Asthma COPD (chronic obstructive pulmonary disease) History of heart attack CHF (congestive heart failure) Hypertension Surgical History Surgical History History of partial hysterectomy History of tubal ligation Family History Family History Father COPD (chronic obstructive pulmonary disease) Acute myocardial infarction Asthma Mother Lung cancer COPD (chronic obstructive pulmonary disease) Sibling No problems noted. Social History Social History Social History: Caffeine-daily Smoking packs per day: 0.5 Smoking cigarettes per day: 10.0 Years smoked: 32 Smoking pack-years: 16.00 Smoking status: Current every day smoker Tobacco type: cigarettes Second hand tobacco smoke exposure: No Additional smoking assessment comments: PT TRYING TO QUIT SMOKING, ON NICOTINE PATCHES Alcohol intake: current Alcohol use details: Rarely Substance use: never Substance use type: does not use Do You Feel Safe in your Home?: Yes Lack of Transportation: No Lack of Food: Never True Current Housing: I Have Housing Concerned About Future Housing: No Difficulty Paying Gas/Electric Bills: No Difficulty Paying for Meds: No Currently Unemployed: No Education: High School Diploma/GED Difficulty w/ Childcare or Family Care: No Living arrangements: with family Occupation/Education: occupation 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 Gender identity (if verbalized by the patient): Female Spiritual care concerns: No Meds Home Medications and Allergies Home Medications ?Medication ?Instructions ?Recorded ?Confirmed ?Type albuterol sulfate 90 mcg/actuation 2 puff inhalation PRN PRN 02/18/19 09/01/24 History aerosol inhaler (ProAir HFA) Bronchospasm ipratropium 0.5 mg-albuterol 3 mg 3 ml inhalation QID PRN 04/02/22 09/01/24 History (2.5 mg base)/3 mL nebulization Bronchospasm soln montelukast 10 mg tablet 10 mg PO DAILY 04/02/22 09/01/24 History sumatriptan succinate 50 mg tablet 50 mg PO ONCE PRN Migraine Headache 04/02/22 09/01/24 History meclizine 25 mg tablet 25 mg PO BID PRN Vertigo 09/27/22 09/01/24 History topiramate 25 mg tablet 25 mg PO DAILY 12/27/22 09/01/24 History verapamil 240 mg tablet,extended 240 mg PO DAILY 01/02/23 09/01/24 History release famotidine 40 mg tablet 40 mg PO DAILY 12/27/23 09/01/24 History omega-3 fatty acids 1,000 mg 4,000 mg PO DAILY 12/27/23 09/01/24 History capsule omeprazole 20 mg capsule,delayed 20 mg PO DAILY 12/27/23 09/01/24 History release Stiolto Respimat 2.5 mcg-2.5 2 puff inhalation Q24H 90 days #12 03/20/24 09/01/24 Rx mcg/actuation solution for grams inhalation (tiotropium-olodaterol) fluticasone propionate 50 2 spray intranasal DAILY 1 month 04/06/24 09/01/24 Rx mcg/actuation nasal #16 grams spray,suspension cholecalciferol (vitamin D3) 25 25 mcg PO DAILY 05/18/24 09/01/24 History mcg (1,000 unit) capsule ferrous sulfate 325 mg (65 mg 325 mg PO DAILY 05/18/24 09/01/24 History iron) tablet mecobalamin (vitamin B12) 1,000 1,000 mcg PO DAILY 05/18/24 09/01/24 History mcg chewable tablet eszopiclone 1 mg tablet (Lunesta) 1 mg PO QHS #30 tabs 06/11/24 09/01/24 Rx upihladsgndm-ycjy-gntsr acid 200 2 tablet PO DAILY 06/29/24 09/01/24 History mcg-lutein 137.5 mcg chewable tablet (Adult Multivitamin (w-lutein)) meloxicam 7.5 mg tablet 7.5 mg PO BID 09/01/24 09/01/24 History Allergies Allergy/AdvReac Type Severity Reaction Status Date / Time No Known Allergies Allergy Verified 09/01/24 10:48 Exam Const: General: cooperative, healthy appearing, comfortable, no acute distress, well developed, alert, awake and Physically active Orientation/consciousness: oriented to person, oriented to place, oriented to time and patient oriented x3 HENMT: Head: normocephalic and atraumatic Ears: external ears normal and EAC's normal Face/Nose/Sinus: Normal external nose present and Normal nares present Mouth: Yes Normal oral and palatal mucosa present, Yes lip normal and Yes tongue normal Eyes: General: appearance normal, both eyes and all related structures Neck: Neck: normal visual inspection, full ROM and trachea midline Resp: Effort & Inspection: normal respiratory effort and able to speak in complete sentences Cardio: Rate: regular rate Neuro: General: oriented to person, oriented to place, oriented to time and patient oriented x3 Assessment and Plan Assessment and plan (1) Deviated nasal septum: Code(s): J34.2 - Deviated nasal septum Status: Acute (2) Hypertrophy of nasal turbinates: Code(s): J34.3 - Hypertrophy of nasal turbinates Status: Acute Plan 43-year-old female with deviated nasal septum and hypertrophy of nasal turbinates. - CT scan findings were discussed with the patient:FINDINGS: Paranasal sinuses and mastoids are pneumatized. There is mild mucosal thickening in the right sphenoid sinus. No air-fluid levels. No mucoperiosteal reaction. Left-sided juliette bullosa. Leftward nasal septal deviation. - for discussion with the patient regarding options which include continuing nasal sprays versus septoplasty and bilateral inferior turbinate reduction were thoroughly discussed and the patient at this point prefers to do septoplasty and bilateral inferior turbinate reduction -Risk of septoplasty procedures were discussed with the patient which include but not limited to; Bleeding, infection, septal perforation, saddle nose deformity, intranasal scarring - also discussion about the non permanent effect of turbinate reduction on the nasal breathing was also discussed
--- NOTE | 2024-09-03 16:54 | WPDHPUPDATE1 ---
History and Physical Update Update Date/Time: 09/03/24 16:54 History and Physical has been reviewed, including an updated exam of the patient. There are NO changes in the patient's condition. Risks, benefits, and alternatives have been discussed and questions answered. Patient agrees to proceed with procedure.
--- NOTE | 2024-09-03 16:54 | W.PM.PROC2 ---
Procedure Note - Detailed Date of Procedure 09/04/24 Pre-op Diagnosis deviated nasal septum, hypertrophy of turbinate's Post-op Diagnosis Other (Deviated nasal septum, hypertrophy of nasal turbinates, left-sided maxillary sinusitis) Procedure Performed ?Endoscopic septoplasty ? Bilateral inferior turbinate reduction (intramural (submucosal) ablation of the inferior turbinate.) . Nasal endoscopy with left-sided maxillary antrostomy Surgeon Alden Guardado MD Anesthesia General Description of Procedure DESCRIPTION OF PROCEDURE: The patient was seen in the preoperative area, informed consent was checked and confirmed. The patient was taken to the operating room, sedated and placed under general anesthesia with an endotracheal tube . Eyes were taped and were prepped and draped in the usual sterile fashion. The nose was examined, and the left anterior septum was injected with 1% lidocaine with 1:100,000 epinephrine. [place] incision was made and a mucoperichondrial flap was elevated to expose the quadrangular cartilage and bony septum. Incision was then made anteriorly on the quadrangular cartilage to elevate the contralateral mucoperichondrial flap. The deviated quadrangular cartilage was excised with a Larry knife. At least 1 cm of dorsal and caudal strut of quadrangular was left in place. We resected the deviated bony septum with a Fracisco-Rubi and a pituitary forceps. After adequate resection of the posterior-inferior bony septum, the mucoperichondrial Flap was laid back in anatomic position. The agger nasi area in the left side was injected with 1% lidocaine with 1:100,000 epinephrine. The body of the middle turbinate was injected with 1% lidocaine with 1:100,000 epinephrine. The middle turbinate was gently medialized and the uncinectomy was performed with a pediatric Bloom backbiter and the uncinectomy was completed with a shaver from the inferior-posterior attachment to the superior anterior attachment. Maxillary antrum was re-examined with a 30-degree scope. A ball probe was passed into the antrum and was further widened with a backbiter in the anterior-inferior aspect.left We proceeded with submucosal inferior turbinate reduction, starting on the right side, a stab incision was made anterior mucosa of inferior turbinate. Submucosal pocket was created along the length of the inferior turbinate and the microdebrider blade 2mm thick was introduced anteriorly and into the whole submucosal pocket. Microdebrider was then used to remove the hypertrophied bony parts of anterior turbinate head and soft tissue with the outer layer intact. The residual inferior turbinate was then out fractured using Boies elevator. We proceeded to the left side. A stab incision was made on the anterior mucosa of inferior turbinate. Submucosal pocket was created along the length of the inferior turbinate and the microdebrider blade 2 mm thick was introduced anteriorly and into the whole submucosal pocket. Microdebrider was then used to remove the hypertrophied bony parts of anterior turbinate head and soft tissue with the outer layer intact. The residual inferior turbinate was then out fractured using Boies elevator. PosiSep X BAM Hemostat Dressing sponges were placed in left middle meatus and infiltrated with a mixture of kenalog and cefazolin. The nose was then suctioned clean and at this point the care of the patient was then transferred to the anesthesiologist where the patient emerged from general anesthesia without complication. Estimated Blood Loss 20 (ml) Drains No Packing Yes (Bilateral nonabsorbable Merocel, left-sided absorbable middle meatus) Pathology Other (Mucopurulent secretions were sent to culture from the left maxillary sinus) Complications No immediate complications Condition Stable Disposition PACU [facility] Billing Surgery - Charge Forward: Surgery Billing
[2024-09-04] VITALS (9 sets, daily range): BP systolic 112–135; BP diastolic 55–82; PULSE 70–83; RESP 11–20; TEMP 36.2–36.4; O2SAT 94–100; BMI 38.8
[2024-09-04] MEDS: OXYMETAZOLINE HCL 0.05% NAS 15 ML BTL (*BKC) 2 SPRAY NASAL ×3 (09:50→10:27)
[2024-09-04] MEDS: ACETAMINOPHEN 500 MG TABLET 1000 MG PO (09:50)
--- NOTE | 2024-09-04 11:35 | P.PNAN_ITS ---
Anes - Initial Pre Proc Eval Procedure: Operation Date: 09/04/24 11:30 Proposed Procedures p Septoplasty, - Alden Guardado MD s Bilateral Inferior Turbinate Reduction, Submucous Resection of Inferior Turbinate with Outfracture of Inferior Turbinate - Alden Guardado MD Date/Time: 09/04/24 11:35 Surgeon: Alden Guardado MD Pre Op Diagnosis: deviated nasal septum, hypertrophy of turbinate's Patient Data Age: 44 Gender: F Height: 1.63 m Weight: 102.6 kg Last Vital Signs Temp 36.4 C L 09/04/24 10:34 Pulse 82 09/04/24 10:34 Resp 16 09/04/24 10:34 BP 112/55 L 09/04/24 10:34 Pulse Ox 97 09/04/24 10:34 Allergies Allergy/AdvReac Type Severity Reaction Status Date / Time No Known Allergies Allergy Verified 09/04/24 10:23 Home Medications ?Medication ?Instructions ?Recorded ?Confirmed ?Type albuterol sulfate 90 mcg/actuation 2 puff inhalation PRN PRN 02/18/19 09/04/24 History aerosol inhaler (ProAir HFA) Bronchospasm ipratropium 0.5 mg-albuterol 3 mg 3 ml inhalation QID PRN 04/02/22 09/01/24 His tory (2.5 mg base)/3 mL nebulization Bronchospasm soln montelukast 10 mg tablet 10 mg PO DAILY 04/02/22 09/01/24 History sumatriptan succinate 50 mg tablet 50 mg PO ONCE PRN Migraine Headache 04/02/22 09/01/24 History meclizine 25 mg tablet 25 mg PO BID PRN Vertigo 09/27/22 09/01/24 History topiramate 25 mg tablet 25 mg PO DAILY 12/27/22 09/01/24 History verapamil 240 mg tablet,extended 240 mg PO DAILY 01/02/23 09/01/24 History release famotidine 40 mg tablet 40 mg PO DAILY 12/27/23 09/01/24 History omega-3 fatty acids 1,000 mg 4,000 mg PO DAILY 12/27/23 09/01/24 History capsule omeprazole 20 mg capsule,delayed 20 mg PO DAILY 12/27/23 09/01/24 History release Stiolto Respimat 2.5 mcg-2.5 2 puff inhalation Q24H 90 days #12 03/20/24 09/04/24 Rx mcg/actuation solution for grams inhalation (tiotropium-olodaterol) fluticasone propionate 50 2 spray intranasal DAILY 1 month 04/06/24 09/01/24 Rx mcg/actuation nasal #16 grams spray,suspension cholecalciferol (vitamin D3) 25 25 mcg PO DAILY 05/18/24 09/01/24 History mcg (1,000 unit) capsule ferrous sulfate 325 mg (65 mg 325 mg PO DAILY 05/18/24 09/01/24 History iron) tablet mecobalamin (vitamin B12) 1,000 1,000 mcg PO DAILY 05/18/24 09/01/24 History mcg chewable tablet eszopiclone 1 mg tablet (Lunesta) 1 mg PO QHS #30 tabs 06/11/24 09/01/24 Rx kqxbluaefsan-etza-kxlpl acid 200 2 tablet PO DAILY 06/29/24 09/01/24 History mcg-lutein 137.5 mcg chewable tablet (Adult Multivitamin (w-lutein)) meloxicam 7.5 mg tablet 7.5 mg PO BID 09/01/24 09/04/24 History Patient hx anesthesia problems: none Family hx anesthesia problems: none Results Review: All pre-operative results and documents have been reviewed as part of the pre- operative evaluation. [facility] Past Medical History Medical History Nasal congestion Chronic ethmoidal sinusitis Hypertrophy of nasal turbinates Deviated nasal septum ADAM (obstructive sleep apnea) Odynophagia BMI 37.0-37.9, adult Seizure age 10 after cyst removed from side of head Fibroid Asthma COPD (chronic obstructive pulmonary disease) History of heart attack CHF (congestive heart failure) Hypertension Surgical History Surgical History History of partial hysterectomy History of tubal ligation Family History Family History Father COPD (chronic obstructive pulmonary disease) Acute myocardial infarction Asthma Mother Lung cancer COPD (chronic obstructive pulmonary disease) Sibling No problems noted. Social History Social History Social History: Caffeine-daily Smoking packs per day: 0.5 Smoking cigarettes per day: 10.0 Years smoked: 32 Smoking pack-years: 16.00 Smoking status: Current every day smoker Tobacco type: cigarettes Second hand tobacco smoke exposure: No Additional smoking assessment comments: PT TRYING TO QUIT SMOKING, ON NICOTINE PATCHES Alcohol intake: current Alcohol use details: Rarely Substance use: never Substance use type: does not use Do You Feel Safe in your Home?: Yes Lack of Transportation: No Lack of Food: Never True Current Housing: I Have Housing Concerned About Future Housing: No Difficulty Paying Gas/Electric Bills: No Difficulty Paying for Meds: No Currently Unemployed: No Education: High School Diploma/GED Difficulty w/ Childcare or Family Care: No Living arrangements: with family Occupation/Education: occupation 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 Informed Consent: The patient's anesthetic plan and its attendant risks and benefits were discussed with the patient/family/POA. Questions were solicited and answers provided to the satisfaction of the patient/family/POA.
[2024-09-04] MEDS: ceFAZolin 2 GM/D5W 50 ML 2 GM/50 ML BAG IVPB (11:50)
[2024-09-04] MEDS: OXYMETAZOLINE HCL 0.05% NAS 15 ML BTL (*BKC) 1 SPRAY NASAL (12:09)
[2024-09-04] MEDS: LIDO 1%/EPINEPHRINE 1:100,000 20 ML VIAL 10 ML INFILTRATE (12:09)
[2024-09-04] MEDS: COCAINE HCL (*CRX) 4% TOP SOLN 4 ML VIAL 1 APPLIC TOPICAL (12:10)
--- NOTE | 2024-09-04 13:10 | SUR.OPER ---
Dr. Guardado telephoned patient's and received permission to address an issue to perform a left maxillary antrostomy.
--- NOTE | 2024-09-04 13:27 | SUR.OPER ---
Aerobic, anaerobic and gram stain of Left Maxillary sinus sent with FREDERICK Segura and received by Abdias
[2024-09-04] MEDS: ceFAZolin SODIUM 1 GM VIAL IRRIGATION (14:15)
[2024-09-04] MEDS: TRIAMCINOLONE ACET INJ 40 MG/ML VIAL XX (14:16)
--- NOTE | 2024-09-04 14:27 | PM.OP ---
Procedure Note - Brief Procedure Note - Brief Date of procedure: 09/04/24 deviated nasal septum, hypertrophy of turbinate's Procedure performed: Septoplasty, bilateral inferior turbinate reduction, left-sided maxillary antrostomy Surgeon: Alden Guardado MD Estimated blood loss (mL): 20 (ml) Drains: No Packing: Yes (Bilateral Merocel nonabsorbable packing, left-sided absorbable packing in t) Pathology: None sent Complications: No immediate complications Condition: Stable Disposition: PACU
[2024-09-04] MEDS: LACTATED RINGERS 1,000 ML 30 ML IV CONT ×2 (14:32)
[2024-09-04] MEDS: methylPREDNISolone SOD SUCC 40 MG VIAL 20 MG IM (14:53)
[2024-09-04] MEDS: fentaNYL CITRATE INJ (*CRX) 100 MCG/2 ML VIAL 25 MCG IV PUSH ×2 (15:04→15:08)
[2024-09-04] MEDS: oxyCODONE HCL (*CRX) 5 MG TAB IR PO (15:59)
== END 2024-09-04 16:25 | disposition home or self-care (01) ==
PROVIDERS: PCP Internal Medicine; Visit Provider Otolaryngology Otolaryngology/Facial Plastic Surgery
PROC: (CPT 30520; principal; 2024-09-04 11:30)
PROC: (CPT 30520; 2024-09-04 11:30)
DX: J34.2 Deviated nasal septum (principal); J34.3 Hypertrophy of nasal turbinates; G89.18 Other acute postprocedural pain; J32.2 Chronic ethmoidal sinusitis; G47.33 Obstructive sleep apnea (adult) (pediatric); I11.0 Hypertensive heart disease with heart failure; I50.9 Heart failure, unspecified; I25.2 Old myocardial infarction; J44.9 Chronic obstructive pulmonary disease, unspecified; F17.210 Nicotine dependence, cigarettes, uncomplicated; E66.9 Obesity, unspecified; Z68.38 Body mass index [BMI] 38.0-38.9, adult; Z79.51 Long term (current) use of inhaled steroids; Z98.890 Other specified postprocedural states; Z98.51 Tubal ligation status; Z80.1 Family history of malignant neoplasm of trachea, bronchus and lung; Z82.49 Family history of ischemic heart disease and other diseases of the circulatory system
CPT/HCPCS: 30520; 30140; 31256; 87070; 87075; 87205; A9270; J0690; J1100; J2004; J2250; J2405; J2704; J2919; J3010; J3301; J7040; J7050; J7120

== ENCOUNTER 2024-11-03 07:29 | Outpatient (CLI) | payer OTHER, SELFPAY ==
--- OUTSIDE RECORDS SUMMARY | 2015-04-25 11:00 | XMS_ITS | Continuity of Care Document ---
Author Organization [facility] Address [address] [id number][place] [address] Phone Care Team Providers Care Career Consultant Name Role Phone Pfannenstieyasmin DDS, Rendi Unavailable Unavaila ble Allergies, Adverse Reactions, Alerts Substance Reaction Status Criticality No Known Allergies Active No Inform ation Medications Medication Instructions Dosage Effective Dates (start - stop) Status Comments amoxicillin 500 mg capsule take 1 capsule by ORAL route every 8 hours for dental infection 500 MG - Active [place] 7.5 mg-325 mg tablet take 1 tablet [...] infection 300 MG - No Longer Active [place] 7.5 mg-325 mg tablet take 1 tablet [...] Diagnoses Date Provider Providers Copied on Encounter [facility], [id number]- [facility], [place], [place], [id number], [place] tel:[phone] [facility] No Information 6 Pfannenstiel Rendi. [address] [place], [address], [place]. tel:[phone] Referring Provider: Sparkle Galicia L, [address] [place], [address]. tel:[phone] [facility], [id number]- [place], [id number], [place] tel:[phone] [facility] No Information 6 Pfannenstiel Rendi. [address] [place], [address], [place]. tel:[phone] [facility], [id number]- [place], [id number], [place] tel:[phone] [facility] No Information 6 Pfannenstiel Rendi. [address] [place], [address], [place]. tel:[phone] Referring Provider: Sparkle Galicia L, [address] [place], [address]. tel:[phone] [facility], [id number]- [place], [id number], [place] tel:[phone] [facility] No Information 6 Pfannenstiel Rendi. [address] [place], [address], [place]. tel:[phone] Referring Provider: Sparkle Galicia L, [address] [place], [address]. tel:[phone] Family History Family Member Type Diagnosis Age At Onset Son Problem (finding) Alive and well Payers Payer name Insurance type Covered libertarian ID Authoriza tiabhinav(s) No Information Social History [...]
--- NOTE | ~2024-11-03 | US_ITS ---
US abdomen limited INDICATION: Pancytopenia PROCEDURE: Realtime right upper abdominal ultrasound. COMPARISON: No prior studies for comparison. FINDINGS: The pancreas is normal without focal mass or pancreatic ductal dilation. Liver echotexture is increased, consistent with fatty infiltration. There is normal directional flow in the portal vein. The gallbladder is normal without stones, gallbladder wall thickening or pericholecystic fluid. Common bile duct measures 3 mm. No sonographic Miller's sign. IMPRESSION: 1: Fatty infiltration of the liver. Reviewed, dictated and finalized at location O.
--- OUTSIDE RECORDS SUMMARY | 2024-11-03 07:33 | XMS_ITS | Clinical Summary ---
Author Organization [facility] Address [address] [place] [id number] Care Team Providers Care Beater Machine Operator Name Role Phone Juan Diego Caraballo MD Primary Care Provider [phone] Social History Tobacco Use Types Packs/Day Years [...] of 3 - 19+ 3-dose series) 07/10/1998 HPV Vaccines (1 - 3-dose SCD M series) 07/10/2006 Cervical Cancer Screening Pa p with HPV Testing (Age 30 to 64) Every 5 Years 07/10/2009 Cervical Cancer Screening with HPV 07/10/2009 Mammogram Screening 2019 COVID-19 Vaccine (2023-2 5 season) 2023 Meningococcal B Vaccine Aged Out No l [...] on patient's age to complete this topic Insurance [place] Care Teams Beater Machine Operator Relationship Specialty Start Date End Date Juan Diego Caraballo MD [address] [place] [id number] PCP - General INTERNAL MEDICINE 06/04/24
== END 2024-11-03 07:30 | disposition home or self-care (01) ==
LOC: CHSIMG 07:30
PROVIDERS: PCP Family Medicine; Visit Provider Family Medicine
DX: K74.60 Unspecified cirrhosis of liver (principal); K76.0 Fatty (change of) liver, not elsewhere classified
CPT/HCPCS: 76705

== ENCOUNTER 2024-11-17 09:55 | Outpatient (CLI) | payer OTHER, SELFPAY ==
--- OUTSIDE RECORDS SUMMARY | 2015-04-25 11:00 | XMS_ITS | Continuity of Care Document ---
Author Organization [facility] Address [id number] [address] Phone Care Team Providers Care Angle Shear Operator Name Role Phone Pfannenstieyasmin DDS, Rendi Unavailable Unavaila ble Allergies, Adverse Reactions, Alerts Substance Reaction Status Criticality No Known Allergies Active No Inform ation Medications Medication Instructions Dosage Effective Dates (start - stop) Status Comments amoxicillin 500 mg capsule take 1 capsule by ORAL route every 8 hours for dental infection 500 MG - Active [place] 7.5 mg-325 mg tablet take 1 tablet by oral route every 6 hours as needed for pain for post op pain - Active IBUPROFEN (unknown strength) take 1 tablet by oral route every 6 hours as needed with food Not Available - Active ALBUTEROL SULFATE (unknown strength) inhale 0.5 milliliter by inhalation route 3- 4 times every day via nebulizer Not Available - Active clindamycin 150 mg capsule take 2 capsule by oral route every 6 hours for dental infection 300 MG - No Longer Active [place] 7.5 mg-325 mg tablet take 1 tablet by oral route every 6 hours as needed for pain for dental pain - No Longer Active Procedures Procedure Date Post Op No Charge Infection Code EDR Approval Note Infection Code Post Op No Charge EDR Approval Note Intraoral Periapical First Film Limited Oral Evaluation Problem Focused Extraction, Erupted Tooth Or Exposed Allie t (Elevati EDR Approval Note Advance Directives Directive Yes / No Effective Date File Name No Information Encounters Encounter Description Practice Location Reason(s) For Visit Diagnoses Date Provider Providers Copied on Encounter [facility], [id number]- [facility], [place], [place], [id number], [place] tel:[phone] [facility] No Information 6 Pfannenstiel Rendi. [address] [place], [address], [place]. tel:[phone] Referring Provider: Sparkle Galicia L, [address] [place], [address]. tel:[phone] [facility], [id number]- [place], [place], [id number], [place] tel:[phone] [facility] No Information 6 Pfannenstiel Rendi. [address] [place], [address], [place]. tel:[phone] [facility], [id number]- [place], [place], [id number], [place] tel:[phone] [facility] No Information 6 Pfannenstiel Rendi. [address] [place], [address], [place]. tel:[phone] Referring Provider: Sparkle Galicia L, [address] [place], [address]. tel:[phone] [facility], [id number]- [place], [place], [id number], [place] tel:[phone] [facility] No Information 6 Pfannenstiel Rendi. [address] [place], [address], [place]. tel:[phone] Referring Provider: Sparkle Galicia L, [address] [place], [address]. tel:[phone] Family History Family Member Type Diagnosis Age At Onset Son Problem (finding) Alive and well Payers Payer name Insurance type Covered democrat ID Authoriza tiabhinav(s) No Information Social History Type Description Quantity Date Captured Comments Alcohol Use Details No Caffeine Use Details Unknown Tobacco Use Status Occasional cigarette smoker Smoking Status Heavy tobacco smoker Smoking Tobacco Use Details Cigarette: Years Used 25 Cigarette: 1 Packs per day, Pack Year: 25 Sex Female Chief Complaint And Reason For Visit No Information Reason For Referral Reason For Referral No Information Plan Of Treatment Date Type Action Status Goal Tobacco cessation counseling completed Goal Tobacco cessation counseling completed Goal Tobacco cessation counseling completed History Of Present Illness Encounter Date Complaint History Of Prese nt Illness No Information Functional Status Date Functional Assessmen t No Information Instructions Date Instruction Additional Infor bradfordion Lifestyle education Related to D ental Examination Lifestyle education Related to D ental Examination Assessments Type Assessment Date No Information Patient Care Teams Name Effective Dates (start - stop) Status Members No Information
[2024-11-17 10:08] LABS: Hematocrit 41.7 % (35.0-49.0); Hemoglobin 13.6 g/dL (12.0-15.0); Immature Granulocyte Percent A 0.3 % (0.0-0.0); Lymphocytes Absolute Auto 2.04 K/mm3 (1.10-4.50); Mean Corpuscular HGB Conc 32.6 g/dL (32-36); Mean Corpuscular Hemoglobin 33.9 pg (27.0-31.0); Mean Corpuscular Volume 104.0 fL (78.0-102.0); Nucleated Red Blood Cells Absolute Auto 0.00 K/mm3 (0.00-0.00); Nucleated Red Blood Cells Perc 0.0 % (0-0.0); Platelet Count Result 164 K/mm3 (150-420); Red Blood Count 4.01 M/mm3 (4.20-5.40); White Blood Count 7.6 K/mm3 (4.8-10.8)
--- OUTSIDE RECORDS SUMMARY | 2024-11-17 11:13 | XMS_ITS | Clinical Summary ---
Author Organization [facility] Address [address] [place] [id number] Care Team Providers Care Candy Department Manager Name Role Phone Juan Diego Caraballo MD Primary Care Provider [phone] Social History Tobacco Use Types Packs/Day Years [...] Screening 2019 COVID-19 Vaccine (2023-2 5 season) 2024 Meningococcal B Vaccine Aged Out No l [...] patient's age to complete this topic Insurance [place] Care Teams Candy Department Manager Relationship Specialty Start Date End Date Juan Diego Caraballo MD [address] [place] [id number] PCP - General INTERNAL MEDICINE 06/04/24
== END 2024-11-17 09:56 | disposition home or self-care (01) ==
PROVIDERS: PCP Family Medicine; Visit Provider Family Medicine
DX: I10 Essential (primary) hypertension (principal)
CPT/HCPCS: 36415; 85025

== ENCOUNTER 2024-12-13 17:56 | Emergency (ER) | payer OTHER, SELFPAY ==
--- NOTE | ~2024-12-13 | CT_ITS ---
EXAMINATION: CT facial bones wo con COMPARISON: None HISTORY: BUNGEE CORD STRUCK RIGHT SIDE FACE. RIGHT ORBIT PAIN. TECHNIQUE: Axial images were obtained without IV contrast. Sagittal, coronal reconstruction images were obtained from the axial views. CT scan performed using dose optimization techniques including the following automated exposure control; adjustment of mA and/or kV; use of iterative reconstruction technique. Automatic exposure control was used to reduce radiation dose. Permanent radiation dose record is archived to PACS. FINDINGS: The nasal bones are intact. The anterior maxillary sinus garner and zygomatic arches are intact. Temporomandibular joints are intact. Orbital floors and medial orbits are intact. There is no retrobulbar hemorrhage. No preseptal soft tissue swelling. The visualized brain parenchyma appears unremarkable. The remaining soft tissues are unremarkable. Minimal left maxillary and right ethmoidal and sphenoid sinusitis with underlying mucous retention cyst formation. IMPRESSION: No acute fracture is identified Reviewed, dictated and finalized at location P.
[2024-12-13 17:56] VITALS: BP 130/83; PULSE 84; RESP 18; TEMP 36.4; O2SAT 98
--- NOTE | 2024-12-13 17:59 | ED.EYEPROB ---
HPI - Eye Problem General Chief complaint: Eye Problems Stated complaint: right eye injury Source: patient Mode of arrival: ambulatory Limitations: no limitations History of Present Illness HPI Narrative: Patient is a 44-year-old female with a right eye injury prior to arrival. She was taking a bungee cord off of a a garbage can and it flipped back into her right eye. She has pain in the right eye. No vision changes at this time. MD chief complaint: eye pain, eye redness and eye injury Onset (ago): minute(s) (30) Onset description: sudden Duration: constant Location: right eye Eye Symptoms: burning, redness, pain, foreign body sensation and photophobia Place: home and street/outdoors Mechanism: direct trauma Severity: moderate Severity scale (1-10): 5 If Pain, Quality: sharp Context: trauma Associated symptoms: none Treatments Prior to Arrival: eyepatch Related Data Home Medications ?Medication ?Instructions ?Recorded ?Confirmed ?Last Taken ?Type albuterol sulfate 90 mcg/actuation 2 puff inhalation PRN PRN 02/18/19 12/11/24 09/04/24 History aerosol inhaler (ProAir HFA) Bronchospasm ipratropium 0.5 mg-albuterol 3 mg 3 ml inhalation QID PRN 04/02/22 12/11/24 01/15/23 History (2.5 mg base)/3 mL nebulization Bronchospasm soln sumatriptan succinate 50 mg tablet 50 mg PO ONCE PRN Migraine Headache 04/02/22 12/11/24 01/14/23 History omega-3 fatty acids 1,000 mg 4,000 mg PO DAILY 12/27/23 12/11/24 Unknown History capsule cholecalciferol (vitamin D3) 25 25 mcg PO DAILY 05/18/24 12/11/24 Unknown History mcg (1,000 unit) capsule mecobalamin (vitamin B12) 1,000 1,000 mcg PO DAILY 05/18/24 12/11/24 Unknown History mcg chewable tablet ypnlxxcjgtvz-zfxi-upjix acid 200 2 tablet PO DAILY 06/29/24 12/11/24 Unknown History mcg-lutein 137.5 mcg chewable tablet (Adult Multivitamin (w-lutein)) Allergies Allergy/AdvReac Type Severity Reaction Status Date / Time No Known Allergies Allergy Verified 12/13/24 18:14 Review of Systems Review of Systems: All systems reviewed & are unremarkable except as noted in HPI and below Constitutional: Constitutional: Reports no additional constitutional complaints Eyes: Eyes: Reports no additional eye complaints ENT: Reports system reviewed and no additional complaints, except as documented Cardiovascular: Cardiovascular: Reports no additional cardiovascular complaints Respiratory: Respiratory: Reports no additional respiratory complaints Gastrointestinal: Gastrointestinal: Reports no additional gastrointestinal complaints Genitourinary: Genitourinary: Reports no additional female genitourinary complaints Musculoskeletal: Musculoskeletal: Reports no additional musculoskeletal complaints Integumentary/Breasts: Skin/Breast: Reports system reviewed and no additional complaints, except as docu Neurologic: Reports system reviewed and no additional complaints, except as documented Psychiatric: Psychiatric: Reports no additional psychiatric complaints Endocrine: Endocrine: Reports no additional endocrine complaints Hematologic/Lymphatic: Hematologic/Lymphatic: Reports no additional hematologic/lymphatic complaints Allergic/Immunologic: Allergic/Immunologic: Reports no additional allergic/immunologic complaints [facility] Past Medical History Medical History Nasal vestibulitis Nasal congestion Chronic ethmoidal sinusitis Hypertrophy of nasal turbinates Deviated nasal septum ADAM (obstructive sleep apnea) Odynophagia BMI 37.0-37.9, adult Seizure age 10 after cyst removed from side of head Fibroid Asthma COPD (chronic obstructive pulmonary disease) History of heart attack CHF (congestive heart failure) Hypertension Surgical History Surgical History History of delivery H/O nasal septoplasty History of partial hysterectomy History of tubal ligation Family History Family History Father COPD (chronic obstructive pulmonary disease) Acute myocardial infarction Asthma Mother Lung cancer COPD (chronic obstructive pulmonary disease) Sibling No problems noted. Social History Social History Social History: Caffeine-daily Years smoked: 34 Smoking status: Current every day smoker Tobacco type: cigarettes Second hand tobacco smoke exposure: No Additional smoking assessment comments: Patient is wanting to quit smoking Alcohol intake: current Alcohol use details: Rarely Substance use: never Substance use type: does not use Do You Feel Safe in your Home?: Yes Lack of Transportation: No Lack of Food: Never True Current Housing: I Have Housing Concerned About Future Housing: No Difficulty Paying Gas/Electric Bills: No Difficulty Paying for Meds: No Currently Unemployed: No Education: High School Diploma/GED Difficulty w/ Childcare or Family Care: No Living arrangements: with family Occupation/Education: occupation 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 Gender identity (if verbalized by the patient): Female Sexual Orientation (if Verbalized by the Patient): Straight or Heterosexual Spiritual care concerns: No Agree to blood products: Yes Exam Narrative: Patient had 2020 vision with nurse examination bilateral Const: General: healthy appearing Nutritional Appearance: well nourished Orientation/consciousness: patient oriented x3 HENMT: Head: normal to inspection Ears: external ears normal Face/Nose/Sinus: Normal external nose present Eyes: Conjunctivae: conjunctival abnormality right and diffuse (Injection) Pupils: Equal, round and reactive pupils present EOM: EOMs intact bilaterally Direct Ophthalmoscopy: photophobia Neck: Neck: normal visual inspection Chest: Chest palpation & inspection: normal inspection of the chest Resp: Effort & Inspection: normal respiratory effort and not labored Auscultation: clear to auscultation bilaterally and no crackles Cardio: Rate: regular rate Rhythm: regular rhythm Heart sounds: no murmurs GI: Inspection: non-distended Auscultation: normal bowel sounds : General: Yes bladder normal to palpation Back/Spine/Pelvis: Back: no CVA tenderness Skin: General skin exam: normal color Rashes: no rashes Wounds: no wounds Neuro: General: patient oriented x3, moves all extremities and no meningeal signs Extrem: General: normal to inspection Psych: Mental Status: mental status grossly normal Affect: normal affect Attitude: cooperative Course Vital Signs Vital signs: Vital Signs Temperature 36.4 C L 12/13/24 17:56 Pulse Rate 84 12/13/24 17:56 Respiratory Rate 18 12/13/24 17:56 Blood Pressure 130/83 12/13/24 17:56 Pulse Oximetry 98 12/13/24 17:56 Oxygen Delivery Room Air 12/13/24 17:56 Temperature 36.4 C L 12/13/24 17:56 Pulse Rate 84 12/13/24 17:56 Respiratory Rate 18 12/13/24 17:56 Blood Pressure 130/83 12/13/24 17:56 Pulse Oximetry 98 12/13/24 17:56 Oxygen Delivery Room Air 12/13/24 17:56 Procedures Other Procedure Procedure 1: Other Procedure: Right eye fluorescent stain: Cornea has a moderate-sized abrasion from 10:00 to 2:00 position in a rainbow formation MDM - Eye Problem MDM Narrative Medical decision making narrative: Patient is a 44-year-old female with a right eye injury with a bungee cord. Pain control. Tetracaine. Stain eye. Eye chart. Irrigate eye. Imaging Data Attestation: I personally reviewed and interpreted this imaging study as follows: Radiologist's impression: CT scan of the facial bones is negative for acute process Discharge Plan Discharge Clinical Impression: Blunt injury, right eye Patient Disposition: Home Condition: Stable Instructions: Antibiotic Form, Corneal Abrasion (ED) Additional Instructions: Please follow-up with an quality improvement coordinator or an senior software test engineer in the next week. Patient Language: Malawian Prescriptions: New neomycin-polymyxin B-dexameth [Maxitrol] 3.5mg/mL-10,000 unit/mL-0.1 % drops,suspension 2 drp RIGHT EYE TID 7 Days Qty: 5 0RF hydrocodone-acetaminophen 5-325 mg tablet 1 tablet PO Q8H PRN (Reason: pain) Qty: 15 0RF Rx Instructions: 1-2 tabs per dose No Action albuterol sulfate [ProAir HFA] 90 mcg/actuation Hfa Aerosol Inhaler 2 puff INHALATION PRN PRN (Reason: Bronchospasm) omega-3 fatty acids 1,000 mg capsule 4,000 mg PO DAILY sumatriptan succinate 50 mg tablet 50 mg PO ONCE PRN (Reason: Migraine Headache) ipratropium-albuterol 0.5 mg-3 mg(2.5 mg base)/3 mL solution for nebulization 3 ml inhalation QID PRN (Reason: Bronchospasm) Stiolto Respimat 2.5-2.5 mcg/actuation mist 2 puff inhalation Q24H 90 Days Qty: 12 3RF cholecalciferol (vitamin D3) 25 mcg (1,000 unit) capsule 25 mcg PO DAILY mecobalamin (vitamin B12) 1,000 mcg tablet,chewable 1,000 mcg PO DAILY mauaiavf-xkz-blpjh acid-lutein [Adult Multivitamin (w-lutein)] 200-137.5 mcg tablet,chewable 2 tablet PO DAILY hydrocodone-acetaminophen 5-325 mg tablet 1 tablet PO Q8H PRN (Reason: pain) Qty: 20 0RF omeprazole 40 mg capsule,delayed release(DR/EC) 40 mg PO DAILY Qty: 30 3RF modafinil 100 mg tablet 100 mg PO QAM Qty: 30 2RF eszopiclone [Lunesta] 1 mg tablet 1 mg PO QHS Qty: 30 2RF azelastine 137 mcg (0.1 %) spray,non-aerosol 1 spray intranasal Q12H 30 Days Qty: 30 2RF Rx Instructions: administer into each nostril famotidine 40 mg tablet 40 mg PO DAILY Qty: 90 3RF ferrous sulfate 325 mg (65 mg iron) tablet 325 mg PO DAILY Qty: 90 2RF meclizine 25 mg tablet 25 mg PO BID PRN (Reason: Vertigo) Qty: 30 2RF montelukast 10 mg tablet 10 mg PO DAILY Qty: 30 2RF topiramate 25 mg tablet 25 mg PO DAILY Qty: 90 2RF verapamil 240 mg tablet extended release 240 mg PO DAILY Qty: 90 3RF Zepbound 5 mg/0.5 mL pen injector 5 mg subcut WEEKLY Qty: 2 0RF varenicline tartrate 1 mg tablet 1 mg PO BID Qty: 56 0RF Follow-up/Referrals: Benjamin Rosa DO [Primary Care Provider, Family Practice] Time of Disposition: 19:49
[2024-12-13] MEDS: TETRACAINE HCL 0.5% OPHTH SOLN 4 ML BTL 1 DROP RIGHT EYE (18:05)
[2024-12-13] MEDS: DACRIOSE EYE IRRIGATION 118 ML BOTTLE 100 ML RIGHT EYE (18:07)
[2024-12-13] MEDS: HYDROcodone/acetaminophen (*CRX) 10-325 MG TABLET 1 TAB PO (18:44)
--- NOTE | 2024-12-13 18:55 | PC.NURSE ---
ASSUMED CARE. REPORT RECEIVED FROM MAXWELL PERALES. PATIENT IS RESTING ON STRETCHER. CALL LIGHT IN REACH. FAMILY AT HER SIDE. NO NEEDS VOICED AT THIS TIME
--- NOTE | 2024-12-13 18:58 | PC.NURSE ---
report to lashonda plasencia. dr lagos in room at this time.
[2024-12-13] MEDS: FLUORESCEIN SOD 1 MG/STRIP LEFT EYE (19:00)
--- NOTE | 2024-12-13 19:00 | PC.NURSE ---
DR MARADIAGA AT THE BEDSIDE EXAMINING RIGHT EYE
--- NOTE | 2024-12-13 19:16 | PC.NURSE ---
PATIENT RETURNED FROM CT VIA STRETCHER
[2024-12-13] MEDS: NEOMYCIN/POLYMYXIN/HYDROCORT 7.5 ML EYE DROPS (*BKC) 2 DROP RIGHT EYE (19:24)
--- NOTE | 2024-12-13 19:27 | PC.NURSE ---
PATIENT REPORTS THAT SHE IS NOW ABLE TO OPEN HER EYE AND LOOK AROUND. STATES HER PAIN IS MUCH BETTER THAN ARRIVAL. AMBULATED DOWN TO THE BATHROOM. IS AT HER SIDE
[2024-12-13 19:44] VITALS: BP 124/65; PULSE 80; RESP 20; TEMP 36.3; O2SAT 98
== END 2024-12-13 19:51 | disposition home or self-care (01) ==
PROVIDERS: Emergency Provider Emergency Medicine; PCP Family Medicine
DX: S05.91XA Unspecified injury of right eye and orbit, initial encounter (principal); W20.8XXA Other cause of strike by thrown, projected or falling object, initial encounter
CPT/HCPCS: 70486; 99283; A9270

== ENCOUNTER 2024-12-28 15:28 | Outpatient (CLI) | payer OTHER, SELFPAY ==
--- NOTE | ~2024-12-28 | XR_ITS ---
EXAMINATION: XR shoulder LT min 2V, 12/28/2024 15:30 CDT HISTORY: M25.512 - Pain in left shoulder COMPARISON: No comparisons available. Findings: No acute fracture or malalignment. No significant degenerative changes. Soft tissues unremarkable. Impression: No acute fracture or malalignment. Reviewed, dictated and finalized at location P. Impression: No acute fracture or malalignment.
--- OUTSIDE RECORDS SUMMARY | 2024-12-28 18:09 | XMS_ITS | Clinical Summary ---
Author Organization [facility] Address [address] [place] [id number] Care Team Providers Care Pre Sales Technical Engineer Name Role Phone Juan Diego Caraballo MD Primary Care Provider [phone] Social History Tobacco Use Types Packs/Day Years [...] 2019 COVID-19 Vaccine (2023-2 5 season) 2024 Influenza Adult (#1) 2024 Hepatitis A Vaccines Aged Out No long er eligible based on patient's age to complete [...] patient's age to complete this topic Insurance [place] Care Teams Pre Sales Technical Engineer Relationship Specialty Start Date End Date Juan Diego Caraballo MD [address] [place] [address] PCP - General INTERNAL MEDICINE 06/04/24
== END 2024-12-28 15:29 | disposition home or self-care (01) ==
LOC: CHSIMG 15:29
PROVIDERS: PCP Family Medicine; Visit Provider Nurse Practitioner Family
DX: M25.512 Pain in left shoulder (principal)
CPT/HCPCS: 73030

== ENCOUNTER 2025-02-01 08:03 | Outpatient (CLI) | payer OTHER, SELFPAY ==
--- NOTE | 2025-02-01 08:07 | EST_ITS ---
Patient Info Name: Paola Green Age: 44 years : 1980 Gender: Female Ht: 64 in Wt: 223 lbs BSA: 2.19 m2 HR: 90 bpm BP: 102 / 55 mmHg Heart Rhythm: Sinus Rhythm Technical Quality: Good Exam Date: 02/01/2025 8:07 AM Patient Status: O Admit Date: 02/01/2025 Exam Type: CA stress willow w NM A regadenoson stress test was performed. Staff Referring Physician: Lino Salter DO Attending Provider: Lino Salter DO Summary 1. 1. Negative lexiscan stress test for ischemic ST changes by ECG criteria. 2. 2. Stable hemodynamics throughout the test. 3. 3. Nuclear scan to follow and will be reported separately. Please correlate with it. History/Risk Factors Hypertension: Yes Dyslipidemia: Yes Protocol: LEXISCAN Stress ECG Details Stage: REST Duration (min): 1 min : 33 sec HR (bpm): 91 SBP (mmHg): 102 DBP (mmHg): 55 Stage: REST Duration (min): 8 min : 39 sec HR (bpm): 92 SBP (mmHg): 102 DBP (mmHg): 55 Stage: STAGE 1 Duration (min): 0 min : 16 sec HR (bpm): 90 SBP (mmHg): 102 DBP (mmHg): 55 Stage: RECOVERY Duration (min): 0 min : 43 sec HR (bpm): 105 SBP (mmHg): 102 DBP (mmHg): 55 Stage: RECOVERY Duration (min): 1 min : 43 sec HR (bpm): 105 SBP (mmHg): 104 DBP (mmHg): 52 Stage: RECOVERY Duration (min): 2 min : 43 sec HR (bpm): 103 SBP (mmHg): 102 DBP (mmHg): 54 Stage: RECOVERY Duration (min): 3 min : 43 sec HR (bpm): 102 SBP (mmHg): 101 DBP (mmHg): 56 Stage: RECOVERY Duration (min): 4 min : 43 sec HR (bpm): 105 SBP (mmHg): 100 DBP (mmHg): 58 Stage: RECOVERY Duration (min): 5 min : 43 sec HR (bpm): 99 SBP (mmHg): 106 DBP (mmHg): 59 Stage: RECOVERY Duration (min): 6 min : 22 sec HR (bpm): 100 SBP (mmHg): 106 DBP (mmHg): 59 Rest HR: 92 bpm Peak HR: 109 bpm Rest Sys BP: 102 mmHg Peak Sys BP: 106 mmHg Max Pred HR: 175 bpm % Max Pred HR: 62 % Target HR: 149 bpm Max RPP: 11,554 bpm*mmHg BP Response: Normal blood pressure response Termination Reason: Completed Protocol Cardiac Symptoms: None Total Time: 0 min : 16 sec Rest Angel BP: 55 mmHg Peak Angel BP: 59 mmHg Total Dose: 0.4 mg Resting ECG Normal sinus rhythm. Stress ECG No abnormal ST/T wave changes. Arrhythmias None. Report Signatures
--- OUTSIDE RECORDS SUMMARY | 2025-02-01 08:12 | XMS_ITS | Clinical Summary ---
Author Organization [facility] Address [address] [place] [address] Care Team Providers Care Bow Making Machine Operator Name Role Phone Juan Diego Caraballo MD Primary Care Provider [phone] Social History Tobacco Use Types Packs/Day Years [...] HPV 07/10/2009 Mammogram Screening 2019 COVID-19 Vaccine (2024-2 6 season) 2024 Influenza Adult (#1) 2024 Hepatitis [...] patient's age to complete this topic Insurance [place] Care Teams Bow Making Machine Operator Relationship Specialty Start Date End Date Juan Diego Caraballo MD [address] [place] [address] PCP - General INTERNAL MEDICINE 06/04/24
--- OUTSIDE RECORDS SUMMARY | 2025-02-01 08:12 | XMS_ITS | Data Portability ---
Author Organization [facility] Address [address] [place] [address] Care Team Providers Care [employer] Member Name Role Phone TEJINDER LAND Primary Care Provider Assessment No assessment recorded. Plan of Treatment Reminders Order Date Submit Date Provider Last Modified By Organization Details Last Modified Time Details Appointments None recorded. Lab hbcab (hepatitis B core Ab) igm, serum 2024 025 [facility] (Lab), [address] [place], [address], 5 17:54:32 HBsAg (hepatitis B surface Ag), serum 2024 025 [facility] (Lab), [address] [place], [address], 5 17:54:31 hepatitis C virus Ab, serum 2024 025 [facility] (Lab), [address] [place], [address], 5 17:54:31 HIV 1+2 AB + HIV 1 p24 Ag, qualitative immunoassay , serum 2024 025 [facility] (Lab), [address] [place], [address], 5 17:54:31 RPR (rapid plasma reagin), serum 2024 025 [facility] (Lab), [address] [facility], [place], [address], 17:54:32 CT + NG + TV, RNA, unspecified specimen 2024 025 [facility] (Lab), [address] [facility], [place], [address], 17:36:12 Referral None recorded. Procedures None recorded. Surgeries None recorded. Imaging MAMMO, screening, digital, bilateral 2024 025 [facility], [address], Jun [facility], [place], [address], 04:02:11 Medication Orders None recorded. Patient TargetsNo targets recorded. Patient InstructionsNo instructions recorded. Reason for Referral None Reported. Results Created Date Observation Date Name Description Value Unit Range Abnormal Flag Note LastModifiedBy Organization Detail LastModifiedTime 08/12/1908/11/2024 CT/GC AND TRICH OMONA S VAGIN ROBERT (RRNA ), URINE chlamydia trachomatis, PCR Negati ve negati ve Not Available [facility] (Lab) [address] [facility], [place], [address], 08/12/2024 17:36:12 08/12/19 25 08/11/2024 CT/GC AND TRICH OMONA S VAGIN ROBERT (RRNA ), URINE neisseria gonorrhoeae, PCR Negati ve negati ve Not Available [facility] (Lab) [address] [facility], [place], [address], 08/12/2024 17:36:12 08/12/19 25 08/11/2024 CT/GC AND TRICH OMONA S VAGIN ROBERT (RRNA ), URINE trichomonas vaginalis ribosomal RNA (rrna) Negati ve negati ve Not Available [facility] (Lab) [address] [facility], [place], [address], 08/12/2024 17:36:12 08/12/19 25 08/11/2024 HEPAT ITIS C ANTIB SHARRI SCREE N, REFLE X TO CONFI RMATI ON hepatitis C antibody Non-re active non-re active Antib odies to HCV Not Detec seth, does not exclu de the possi bilit y of expos ure to HCV. Not Available [facility] (Lab) [address] [place], [address], 08/12/2024 17:54:31 08/12/1908/11/2024 HIV 1/2 ANTIG EN/AN TIBOD Y, REFLE X CONFI RMATI ON HIV antigen/anti body Nonrea ctive nonrea ctive HIV-1 antig en and HIV-1 /HIV- 2 antib odies were not detec seth. No labor atory evide nce of HIV infec tion. Not Available [facility] (Lab) [address] [place], [address], 08/12/2024 17:54:31 08/12/1908/11/2024 HEPAT ITIS B SURFA CE ANTIG EN hepatitis B surface antigen Non-re active non-re active This assay was perfo rmed using [employer] ratio n reage nts and test kits. Value s obtai mei with other assay metho ds or kits canno t be used inter roldan eably . Not Available [facility] (Lab) [address] [facility], [place], [address], 08/12/2024 17:54:31 08/12/1908/11/2024 RPR SCREE N, REFLE X TITER /CONF IRMAT ION RPR qualitative Nonrea ctive nonrea ctive Not Available [facility] (Lab) [address] [place], [address], 08/12/2024 17:54:32 08/12/1908/11/2024 HEPAT ITIS B CORE, IGM hepatitis B core IgM antibody Non-re active non-re active Antib odies to Hepat itis B Core IgM not detec seth. Does not exclu de the possi bilit y of expos ure to or infec tion with HBV. Corre late with other Hepat itis B serol ogies . Not Available [facility] (Lab) [address], [place], [address], 08/12/2024 17:54:32 Result Notes None recorded. Procedures Surgical History Date Name Laterality Status Provider Name and Address Organization Details Recorded Time 03/11/19 24 procedure on wrist completed Sharon Dow [facility] 08/11/2024 12:20:43 10/17/19 23 TOTAL HYSTERECTOMY, LAPAROSCOPIC, WITH BILATERAL SALPINGECTOMY (SURG) completed Alesha Torres [facility] 10/17/2022 10:49:48 08/16/19 23 Date of Last Pap Smear completed [facility] 09/14/2022 12:11:28 07/28/19 23 Date of Last Mammogram completed [facility] 09/14/2022 12:42:50 03/11/19 22 repair of stress incontinence by suprapubic sling completed [facility] Ric [facility] 10/08/2022 12:04:02 03/11/19 12 Endometrial Ablation completed [facility] 09/14/2022 12:40:49 03/11/19 11 Endometrial Ablation completed [facility] 09/14/2022 12:40:46 06/24/19 10 section completed Chiqui Larios [facility] 10/08/2022 12:03:17 03/11/19 10 Tubal Ligation completed Chiqui Larios [facility] 10/08/2022 12:02:44 07/24/19 08 section completed Chiqui Larios [facility] 10/08/2022 12:03:11 03/11/19 07 Ovarian Cystectomy completed Chiqui Larios [facility] 10/08/2022 12:02:31 09/02/[address] [facility] 10/08/2022 12:03:04 03/11/18 91 excision of sebaceous cyst of head or neck completed [facility] 10/08/2022 12:02:37 Tubal Ligation completed [facility] 10/22/2022 12:16:33 Endometrial Ablation completed [facility] 10/22/2022 12:16:33 Ovarian Cystectomy completed [facility] 10/22/2022 12:16:33 Imaging Results None recorded. 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 08/11/2024 12:18:22 Date Recorded Body height Body mass index (BMI) Body weight Systolic And Diastolic Provider Name and Address Organization Details Last Updated DateTime 10/08/2022 160.02 cm 38.4 kg/m2 88456.54 g 122/77 mm[Hg] Chiqui Larios [facility] 10/08/2022 11:59:01 Date Recorded Body height Body mass index (BMI) Body weight Systolic And Diastolic Provider Name and Address Organization Details Last Updated DateTime 10/22/2022 160.02 cm 38.1 kg/m2 39537.36 g 133/85 mm[Hg] Molly Oviedo [facility] 10/22/2022 12:16:26 Date Recorded Body height Body mass index (BMI) Body weight Systolic And Diastolic Provider Name and Address Organization Details Last Updated DateTime 12/27/2022 160.02 cm 38.3 kg/m2 22656.95 g 129/84 mm[Hg] Molly Sanford [facility] 12/27/2022 12:51:18 Social History Question Answer Notes LastModified by Organizat ion Details LastModified Time Tobacco Smoking Status Current Every Day Smoker Sharon Dow jovanni, [facility] 12/27/2022 11:51:16 How Many Years [...] Or The Highest Degree You Have Received? [id number] Information not available 09/14/2022 Are There Any [...] Have Difficulty Walking Or Climbing Stairs? No [email or web address] Information not available 12/27/2022 Sex: Unknown Functional Status Question Answer Note LastModified by Organizat ion Details LastModified Time Do you use any illicit or recreational drugs? No Information not available 09/14/2022 What is your level of alcohol consumption? Occasional Information not available 09/14/2022 Are you able to walk independently without assistance or assistive devices? YESWOREST Information not available 09/14/2022 Are you able to care for yourself independently? 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 No [email or web address] Information not available 12/27/2022 What is your exercise level? Moderate Information not available 09/14/2022 Mental Status Question Answer Note LastModified by Organization D etails LastModified Time Do you feel stressed (tense, restless, nervous, or anxious, or unable to sleep at night)? [id number] Information not available 09/14/2022 Family History Relationship [...] (Food, seasonal, environmental ) Y Other Y Drug/Latex Allergies/Reactions N Breast Cancer N Blood Transfusion N Lung Disease Y Dermatologic Disorders N Defects or Inherited Disease N Breast Problem [...] Diagnosis SNOMED-CT Code Diagnosis ICD10 Code Diagnosis IMO Codes Diagnosis Note [id number] Shade Santacruz MD [facility] [address] [address] 09/14/2022 11:38:18 09/14/2022 14:15:00 Uterine leiomyoma 13234442 D25.9 Patient is a 42-year-ol d female [...] Made a decision to perform surgery. Dyspareunia [id number] N94 .10 [id number] Shade Santacruz MD [facility] [address] [address] 10/08/2022 10:54:05 10/08/2022 12:26:54 Uterine leiomyoma [id number] D25.9 this patient is a 42-year-ol d female with symptomati c uterine fibroids. We have agreed from total laparoscop ic hysterecto my and bilateral salpingect new. She understand s the risks, benefits, and alternativ es. She has completed the informed consent process and is ready to proceed. [id number] MD Elayne Oliveira [address] [address] 10/18/2022 09:59:42 10/18/2022 10:01:58 [id number] MD Elayne Oliveira [address] [address] 10/22/2022 11:32:35 10/22/2022 12:42:19 Postoperative care [id number] Z48.89 patient is a 42-year-ol d female presents for postop follow-up. She is 1 week postop from a total laparoscop ic hysterecto my bilateral salpingect new. She has no complaints . Her incisions are clean dry and intact. She is recovering normally. She will follow-up as needed. [id number] Shade Santacruz MD [facility] [address] [address] 12/27/2022 11:51:02 12/27/2022 13:34:01 Dyspareunia [id number] N94.10 42-year-ol d female who presents for [...] face-to-fa ce. More than 50% was couneg. [id number] MILDRED Gibson [facility] [address] [address] 08/11/2024 11:19:21 08/11/2024 14:14:33 Gynecologic examination [id number] Z01.944 [id number] WWEPap - Not indicated todaySTI screen - gc/ct/tric h urine testing sentHIV/He p B&C/Syphil is testing ordered per pt requestMam mogram - order givenColon cancer screening - [facility] - UTD/PCPRTC in 1 yr or [...] questions have been answered. Screening mammography 24 124849 Z12.31 [id number] Venereal d isease screening [id number] Z11.3 92139 Sexually t ransmitted infectious disease [id number] A64 Health Concerns Section Related Observation LastModified by Organization Detai ls LastModified Time None Recorded Concern Status LastModified by Organization Details LastModified Time None Recorded Advance Directives Directive None Recorded Payers Insurance Date Sequence Insurance Name Policy Number Policy Everett Covered Member ID Everett Member ID Guarantor Name 08/11/2024 1 [facility] - DOS ON OR AFTER 20 (MEDICAID REPLACEMENT - HMO) Paola Green [id number] Paola Green Notes Date Note Type Note Provider Name and Address Organization Details Recorded Time 3 text/html this patient is 42-year-old female with [...] infection. Shade Santacruz MD [address], [place], [address], [facility] 10/08/2022 12:20:09 3 text/html female Patient presents for postop follow-up. She is 1 week postop from a total laparoscopic hysterectomy bilateral salpingectomy. She has no complaints. Her incisions are clean dry and intact. She is recovering normally. She will follow-up as needed. .b Shade Santacruz MD [address], [place], [address], [facility] 10/22/2022 12:41:32 3 text/html 42-year-old female who presents for follow-up on dyspareunia. She recently had a hysterectomy in in hopes of improving dyspareunia. She is recovered from that normally but still has intermittent dyspareunia. We talsked about treatment options and evaluation options. She is going to see a gastrointestinal doctor. She is also agreed to physical therapy, pelvic floor therapy. We spent over 20 minutes [id number]. More than 50% was couneg. Shade Santacruz MD [address], [place], [address], [facility] 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 For vaginal bleeding, patient reportshistory of menopause having occurredandno history of post menopausal bleeding. For urinary symptoms, patient reportsno hematuria,no incontinence,no nocturia, andno urinary frequency. For vulva, patient reportsno genital lesionandno vulvar atrophy. For vagina, patient reportsnormal vaginal dischargeandno vaginal atrophy.Breast symptomsFor breast, patient reportsno breast lump,no nipple discharge, andno breast pain.Psychological symptomsFor sexual complaints, patient reportsno sexual complaints. For psychological symptoms, patient reportsno depressionandno anxiety.Preventative measuresFor preventive measures, patient reportsencourage regular mammograms starting age 40,encourage self breast examination,encourage regular exercise, andencourage no tobacco use.44yoh/o TLH for fibroidslast pap 2022 wnlmammogram - has appt scheduledcolonoscopy UTD 2023would like STI testing today MILDRED Gibson [address], [place], [address], [facility] 08/11/2024 13:54:10 OBGyn Episode Ob Episode Information Episode Created Date Number of Fetuses Patient Bloodtype Patient rh Status Prepregnancy Weight lbs Domestic Partner Domestic Partner Phone Father Name Proctologist Status 09/15/19 23 1 CLOSED Fetus Data First Name Last Name Admitted to NICU Weight (g) Sex Living Outcome Pediatric Complications Fetus ID Race Codes Race Delivery Type 3826.95 5704 M Full Term [id number] Primary Brandon Calculation Initial Brandon Date Initial [...] Domestic Partner Domestic Partner Phone Father Name Proctologist Status 09/15/19 1 CLOSED Fetus Data First [...] Domestic Partner Domestic Partner Phone Father Name Proctologist Status 09/15/19 23 1 CLOSED Fetus Data [...] Domestic Partner Domestic Partner Phone Father Name Proctologist Status 09/15/19 23 1 CLOSED Fetus Data [...] Domestic Partner Domestic Partner Phone Father Name Proctologist Status 10/09/19 23 1 CLOSED Fetus Data First Name Last Name Admitted to NICU Weight (g) Sex Living Outcome Pediatric Complications Fetus ID Race Codes Race Delivery Type 2919.77 1704 M Full Term [id number] Vaginal Delivery Brandon Calculation Initial Brandon Date [...]
--- NOTE | 2025-02-01 13:56 | WPDCARIOSTRE ---
Nuclear Stress Test INDICATIONS Indications: Chest pain PROCEDURE Procedure Performed: Myocardial Perf Spect-Multi Procedure: Patient underwent a lexiscan stress test and immediately was injected with 33.2 mCi of cardiolyte. Multiple tomographic images. These are of good quality. Multiple tomographic images. These are of good quality. There is evidence of small size, mild anterior perfusion defect with stress imaging. A separate resting images were obtained after patient was injected with 10.4 mCi of cardiolyte. Multiple tomographic images. These are of good quality. Multiple tomographic images. These are of good quality. There is no evidence of perfusion defect with rest imaging. CONCLUSION Conclusion: 1. Abnormal myocardial perfusion imaging demonstrating a small size, mild anterior perfusion defect with stress imaging suggestive of reversible ischemia. 2. Left ventriculogram demonstrates normal measured ejection fraction of 59% with no wall motion abnormalities. 3. TID score 1.11 is not elevated.
== END 2025-02-01 08:04 | disposition home or self-care (01) ==
LOC: CHSIMG 08:05
PROVIDERS: PCP Family Medicine; Visit Provider Internal Medicine Cardiovascular Disease
DX: R07.9 Chest pain, unspecified (principal); R94.39 Abnormal result of other cardiovascular function study
CPT/HCPCS: 78452; 93017; A9502; J2785

== ENCOUNTER 2025-02-02 09:02 | Outpatient (CLI) | payer OTHER, SELFPAY ==
[2025-02-02 09:30] LABS: Hematocrit 40.1 % (35.0-49.0); Hemoglobin 13.0 g/dL (12.0-15.0); Immature Granulocyte Percent A 0.4 % (0.0-0.0); Lymphocytes Absolute Auto 1.79 K/mm3 (1.10-4.50); Mean Corpuscular HGB Conc 32.4 g/dL (32-36); Mean Corpuscular Hemoglobin 33.2 pg (27.0-31.0); Mean Corpuscular Volume 102.6 fL (78.0-102.0); Nucleated Red Blood Cells Absolute Auto 0.00 K/mm3 (0.00-0.00); Nucleated Red Blood Cells Perc 0.0 % (0-0.0); Platelet Count Result 151 K/mm3 (150-420); Red Blood Count 3.91 M/mm3 (4.20-5.40); White Blood Count 7.0 K/mm3 (4.8-10.8)
[2025-02-02 10:14] LABS: Iron 80 ug/dL (37-170)
[2025-02-02 10:16] LABS: Alanine Aminotransferase 29 U/L (6-35); Albumin Level 4.0 g/dL (3.5-5.1); Alkaline Phosphatase 92 U/L (38-126); Anion Gap 10 mmol/L (4-12); Aspartate Amino Transferase 26 U/L (14-36); Bilirubin,Total 0.3 mg/dL (0.2-1.3); Blood Urea Nitrogen 15 mg/dL (7-17); Calcium 9.2 mg/dL (8.4-10.2); Carbon Dioxide 25 mmol/L (22-30); Chloride 106 mmol/L (98-107); Cholesterol 130 mg/dL (0-200); Estimated Glomerular Filt Rate > 60; Glucose 98 mg/dL (65-110); HDL Direct 34 mg/dL; Magnesium 1.9 mg/dL (1.6-2.3); Osmolality Calculated 292 mOsm/kg (285-295); Potassium 3.8 mmol/L (3.4-5.0); Sodium 141 mmol/L (137-145); Total Protein 6.2 g/dL (6.3-8.2); Triglycerides 190 mg/dL (<150)
[2025-02-02 10:25] LABS: NT Pro B Type Natriuretic Pept 62 pg/mL (19.9-100); Percent Iron Saturation 37 % (20-50)
[2025-02-02 10:50] LABS: Ferritin 233.00 ng/mL (6.24-137)
[2025-02-02 11:06] LABS: Vitamin B12 686.0 pg/mL (239-931)
== END 2025-02-02 09:03 | disposition home or self-care (01) ==
PROVIDERS: PCP Nurse Practitioner Family; Visit Provider Nurse Practitioner Family
DX: E53.8 Deficiency of other specified B group vitamins (principal); E61.1 Iron deficiency; I10 Essential (primary) hypertension; I50.9 Heart failure, unspecified; E78.5 Hyperlipidemia, unspecified; Z79.899 Other long term (current) drug therapy
CPT/HCPCS: 36415; 80053; 80061; 82306; 82607; 82728; 83540; 83550; 83735; 83880; 85025